=== PATIENT | female | born 1960 | race Asian ===

== ENCOUNTER 2020-05-14 15:03 | Outpatient (REF) | payer MEDICAID, SELFPAY ==
[2020-05-14 19:54] LABS: HCT 40.1 % (36.0-46.0); HGB 13.2 g/dL (11.2-15.7); MCH 29.3 pg (27.0-33.0); MCHC 32.9 % (32.0-36.0); MCV 88.9 fL (80-95); MPV 10.8 fL (8.0-11.0); Platelet Count 324 10^3/uL (130-400); RBC 4.51 10^6/uL (3.93-5.22); RDW 12.5 % (11.7-14.6); RDW-SD 40.9 fL; WBC 7.01 10^3/uL (4.4-10.8)
[2020-05-14 20:13] LABS: ALT 40 U/L (14-59); AST 27 U/L (15-37); Alkaline Phosphatase 75 U/L (46-116); Anion Gap 6.7 mmol/L (3-11); BUN 18 mg/dL (7-18); Bilirubin, Total 0.3 mg/dL (0.2-1.0); CO2 28.3 mmol/L (21.0-32.0); CREATININE 0.62 mg/dL (0.55-1.02); Calcium 9.1 mg/dL (8.5-10.1); Calculated LDL 116 mg/dL (<100); Chloride 107 mmol/L (98-107); Cholesterol 238 mg/dL (<200); Glucose 151 mg/dL (74-106); HDL Cholesterol 76 mg/dL (40-60); Potassium 4.3 mmol/L (3.5-5.1); Sodium 142 mmol/L (136-145); TSH (W/Ref FT4) 2.27 uIU/mL (0.36-3.74); Total Protein 7.4 g/dL (6.4-8.2); Triglyceride 230 mg/dL (<150)
[2020-05-14 20:28] LABS: Vitamin D 25 Total 32.7 ng/ml (30-100)
== END 2020-05-14 15:23 ==
LOC: NCHCN 15:03
PROVIDERS: PCP Nurse Practitioner Family; Visit Provider Nurse Practitioner
DX: R14.0 Abdominal distension (gaseous) (principal); Z13.220 Encounter for screening for lipoid disorders; Z13.21 Encounter for screening for nutritional disorder
CPT/HCPCS: 80053; 80061; 82306; 85027; 84443

== ENCOUNTER 2020-05-31 00:58 | Outpatient (CLI) | payer MEDICAID, SELFPAY ==
--- NOTE | 2020-05-31 13:08 | DI.MAMMO_ITS ---
EXAM: MG MAMMO SCREENING CLINICAL HISTORY: SCREENING,Z12.39 TECHNIQUE: Mammograms were interpreted according to the usual protocol including computer analysis w [employer] CAD system, tomosynthesis and C-view imaging. COMPARISON: FINDINGS: The breasts are of moderate density with fairly symmetrical distribution of fibroglandular tissue. N o dominant mass or clumped microcalcification is identified in either breast. The current examinatio n is compared with prior study of October 2013 and there has been no gross interval change appearanc e comparison with previous films. IMPRESSION: No specific evidence of malignancy at this time. Routine screening examinations are suggested at yea rly intervals in this age group according to the ACS ACR guidelines. BI-RADS Cat 1 - Negative Breast Density - Category B - Scattered areas of fibroglandular density
== END 2020-05-31 01:18 ==
PROVIDERS: PCP Nurse Practitioner Family; Visit Provider Nurse Practitioner
DX: Z12.31 Encounter for screening mammogram for malignant neoplasm of breast (principal)
CPT/HCPCS: 77063; 77067

== ENCOUNTER 2020-06-04 14:15 | Outpatient (REF) | payer MEDICAID, SELFPAY ==
--- NOTE | 2020-06-04 13:30 | PAPFT_PTH ---
PATIENT: Nena Ingram LOC: [facility]#:[id number] AGE/SX: 60/F ROOM: RE06/04/[address]: Flakita Rubio : 1960 BED: DIS: 06/04/2020 SPEC #: [id number] RECD: 06/04/20 18:34 STATUS: DEV REQ #: [id number] JUN: 06/04/20 13:[address]: Flakita Rubio DEPT: [facility] Cytology RECD BY: Theresa Green ENTERED: 06/04/20 18:34 SP TYPE: PAPFT OTHR DR: Arlen Ball Tissues: 1 - CX/ENDOCX FOR PAP SMEARS Procedures: PAP THIN PREP/UVM Screening HPV DNA PROBE Comments: [id number]
== END 2020-06-04 14:35 ==
LOC: NCHCN 14:15
PROVIDERS: PCP Nurse Practitioner Family; Visit Provider Nurse Practitioner
DX: Z12.4 Encounter for screening for malignant neoplasm of cervix (principal); Z11.51 Encounter for screening for human papillomavirus (HPV)
CPT/HCPCS: 88142; 87624

== ENCOUNTER 2021-01-11 01:35 | Outpatient (CLI) | payer MEDICAID, SELFPAY ==
[2021-01-11 10:09] LABS: Source Nasal/Nares
[2021-01-11 13:30] LABS: COVID-19 PCR Negative (Negative)
== END 2021-01-11 01:36 | disposition home or self-care (01) ==
LOC: LBO 01:35
PROVIDERS: PCP Nurse Practitioner Family; Visit Provider Surgery
DX: Z20.822 Contact with and (suspected) exposure to COVID-19 (principal); Z01.818 Encounter for other preprocedural examination
CPT/HCPCS: 87635

== ENCOUNTER 2021-01-14 07:46 | Day surgery (SDC) | payer MEDICAID, SELFPAY ==
--- NOTE | 2021-01-14 06:46 | ENDO_ITS ---
Date of service: 01/14/21 Time of Service: 09:06 Endoscopy Report DATE OF PROCEDURE: 01/14/21 PRE-OP DIAGNOSIS: colon cancer screening, bloating POST-OP DIAGNOSIS: other (gastritis, normal colon) PROCEDURE: 1. EGD with biopsies 2. Colonoscopy SURGEON: Evie Gomez ANESTHESIA TYPE: General:No Airway (ASA 2/Janene Alexander, ANN) ESTIMATED BLOOD LOSS: 3 PATHOLOGY: other (Duodenal, gastric and GE junction bx) COMPLICATIONS: None DISPOSITION: same day INDICATIONS: The patient is here for Colonoscopy pre-op. She has no family history of colon cancer. She has bowel habit changes that include abdominal distention, bloating, increased flatus, diarrhea and fecal urgency. -Discussed colonoscopy bowel prep as well as the procedure. Discussed EGD procedure. Discussed possible complications of the procedure to include bleeding , pain, perforation, missed small lesion/polyp, sore throat, aspiration and adverse reaction to the medications. Questions were answered to patient?s satisfaction. No guarantees were implied or given. PREP: Miralax/Dulcolax PROCEDURE START TIME: :06 PROCEDURE END TIME: :39 COLONOSCOPY RETRACTION TIME: 15 minutes FINDINGS: moderate gastritis with shallow ulcers with clots PROCEDURE DESCRIPTION: After informed consent was obtained the patient was take to the procedure room and placed in a supine position. Monitors were applied and a time out was done. The patients name, date of , procedure t ype, allergies to medications and metal in their body was reviewed. A bite block was placed and the patient was sedated. Once sedated and comfortable the gastroscope was advanced through the orop harynx which was grossly normal into the esophagus. The proximal and mid- esophagus were normal. There was normal peristalsis noted. In the distal esophagus there was mild inflammation noted. The scope was advanced into the stomach and through the pylorus into the 3rd portion of the duodenum. The duodenum was noted to be normal. Biopsies were done to rule out celiac. The scope was retracted back into the stomach. There was moderate inflammation noted in the antrum. Biopsies were done to rule out H. pylori. There were a few shallow ulcers noted in the antrum. The scope was retro-flexed. The cardia and fundus were noted to be normal. There was no hiatal hernia noted. The scope was retracted back into the esophagus and biopsies were done of the GE junction to rule out Winter's. The Z line was regular. The GE junction was at 35 cm. While the patient was still sedated they were placed in a left decubitous position. A rectal exam was done. External exam was normal. Internal exam revealed a normal sphincter tone and no palpable masses. The scope was then introduced and retro-flexed. Grade 1 internal hemorrhoids were identified. No masses or polyps were identified on retroflexion. The scope was then advanced to the cecum without difficulty. The ileocecal valve and appendiceal orifice were identified. The prep was good. The scope was then slowly retracted over 15 minutes back into the rectum. There were no polyps. There was no diverticulosis noted. The scope was removed and the patient was woken up and taken back to Same day surgery in stable condition. The patient tolerated the procedure well and there were no immediate complications. Follow up: 10 years for her next colonoscopy. Start on Pepcid 40 mg BID
--- NOTE | 2021-01-14 06:48 | W.PM.DSUDISC ---
Discharge Plan Disposition Patient Disposition: HOME Condition: Good Discharge Details Reason For Visit: colonoscopy/egd Attending Provider: Evie Gomez Primary Care Provider: Arlen Ball Home Meds and New Rx's Prescriptions: New famotidine [Pepcid] 40 mg tablet 40 mg PO BID Qty: 60 RF: 0 Continued omega-3 fatty acids [Fish Oil Concentrate] 1,000 mg capsule 1,000 mg PO DAILY RF: 0 cholecalciferol (vitamin D3) 50 mcg (2,000 unit) capsule 50 mcg PO DAILY RF: 0 vitamin B complex [B Complex-Vitamin B12] Tablet 1 tab PO DAILY RF: 0 ibuprofen 200 mg capsule 200 mg PO Q6H PRNRF: 0 Discontinued bisacodyl [Dulcolax (bisacodyl)] 5 mg tablet,delayed release (DR/EC) 5 mg PO ONCE Qty: 4 RF: 0 polyethylene glycol 3350 17 gram/dose powder 238 g PO ONCE Qty: 238 RF: 0 Discharge Instructions Instructions: Gastritis (DC), Hemorrhoids (DC), Diet for Stomach Ulcers and Gastritis (ED) Additional Instructions: Findings: inflammation of the stomach with ulcers Small internal hemorrhoids Follow up: 10 years for colonoscopy Please call if you develop: fevers >101.5 Nausea or Vomiting Abdominal pain that is not transient DAY SURGERY UNIT POST ENDOSCOPY INSTRUCTIONS 1. Because there will be medication in your system for the next 24 hours, you may feel a little sleepy. Your coordination will be affected. Therefore: a. Do not drive or operate dangerous equipment for 24 hours. b. Do not drink alcohol beverages for 24 hours (not even beer). c. Plan to go home and rest for the day. 2. Generally there are no restrictions on your activity after a day or so has gone by, but you may feel a bit fatigued for a few days. 3 After you arrive home you may have a light meal and return to a normal diet as you can tolerate it without feeling sick to your stomach. 4. After surgery, you may feel pain or discomfort. This should be only transient, but if it persists please contact your doctor. 5. If there are any questions regarding the findings of your procedure, please feel free to contact your doctor. 6. If you are unable to contact your doctor with a problem, contact the hospital at [phone]. 7. Continue all your regular medications unless directed otherwise. I understand the above instructions and have no questions. Signature of Patient or Responsible Adult Escort Date/Time Name of Responsible Adult Escort Signature of Nurse Date/Time Activity:: Activity as Tolerated Diet:: As Tolerated Discharge Orders Discharge Orders: Discharge Order (Routine); Ordered 01/14/21 Ordered By: Evie Gomez
--- NOTE | 2021-01-14 07:24 | W.ANESPRE ---
Anesthesia Assessment and Plan Anesthesia History Personal History: No History of Anesthesia Complications Family History: No Family History of Anesthesia Complications Exercise Tolerance Exercise Tolerance: Metabolic Equivalents>4 Cardiac & Pulmonary Exam Cardiac Exam: Normal S1/S2 Heart Sounds Pulmonary Exam: Clear Bilateral Breath Sounds Airway Exam Known Difficult Airway: No Mallampati Class: 3 Mouth Opening: Normal (> 3cm) Thyromental Distance: Greater than 3 cm Neck Range of Motion: Full ROM Neck Circumference: Normal Teeth Condition: Normal Dentition and Removable Dentures/Plates Upper ASA Classification ASA Score: ASA 2 ASA Emergency: No NPO Status NPO Status: NPO Clears >2 hours, Solids >8 hours Status Status: Not Per Patient Anesthesia Plan Anesthesia Technique: General Anesthesia Airway Planned: Natural Airway Monitors Used: Standard Monitors Additional Preop Comments:: 60 yo for EGD/COLO for increased abd pain/discomfort and bloating. Has a history of tubular adenoma in 2013. General Info Date of Service This is a Shared Provider Document. All providers who document on this will be required to sign document once completed. Please Communicate with Team Date Performed: 01/14/21 Height: 4 ft 11 in Weight: 52.73 kg Body Mass Index (BMI): 23.4 Surgical Procedure: Operation Date: 01/14/21 09:35 Proposed Procedures Side Surgeon p Colonoscopy/Gastroscopy Evie Gomez MD Vital Signs and Lab Results Vital Signs Most Recent Vital Signs in EMR: see EMR for VS Point of Care Results Nursing Point of Care Results: No Data to Display Lab Results Blood Type / Crossmatch: No Data to Display Complete Blood Count: White Blood Count 7.01 10^3/uL (4.4-10.8) 05/14/20 14:07 05/14/20 Red Blood Count 4.51 10^6/uL (3.93-5.22) 05/14/20 14:07 05/14/20 Hemoglobin 13.2 g/dL (11.2-15.7) 05/14/20 14:07 05/14/20 Hematocrit 40.1 % (36.0-46.0) 05/14/20 14:07 05/14/20 Platelet Count 324 10^3/uL (130-400) 05/14/20 14:07 05/14/20 Complete Metabolic Panel: Sodium Level 142 mmol/L (136-145) 05/14/20 14:07 05/14/20 Potassium Level 4.3 mmol/L (3.5-5.1) 05/14/20 14:07 05/14/20 Chloride Level 107 mmol/L (98-107) 05/14/20 14:07 05/14/20 Carbon Dioxide Level 28.3 mmol/L (21.0-32.0) 05/14/20 14:07 05/14/20 Blood Urea Nitrogen 18 mg/dL (7-18) 05/14/20 14:07 05/14/20 Creatinine 0.62 mg/dL (0.55-1.02) 05/14/20 14:07 05/14/20 Calcium Level 9.1 mg/dL (8.5-10.1) 05/14/20 14:07 05/14/20 Albumin 4.0 g/dL (3.4-5.0) 05/14/20 14:07 05/14/20 Glucose Level 151 mg/dL (74-106) H 05/14/20 14:07 05/14/20 Liver Function Panel: Alanine Aminotransferase (ALT/SGPT) 40 U/L (14-59) 05/14/20 14:07 05/14/20 Aspartate Amino Transf (AST/SGOT) 27 U/L (15-37) 05/14/20 14:07 05/14/20 Coagulation Panel: No Data to Display Cardiac Panel: No Data to Display Arterial Blood Gas: No Data to Display Venous Blood Gas: No Data to Display Pancreas Panel: No Data to Display Thyroid Panel: Thyroid Stimulating Hormone (TSH) 2.27 uIU/mL (0.36-3.74) 05/14/20 14:07 05/14/20 Infectious Disease: Coronavirus (COVID-19)(PCR) Negative (Negative) 01/11/21 08:43 01/11/21 Coronavirus 2019 Source Nasal/nares 01/11/21 08:43 01/11/21 Blood Cultures: Blood Culture Toxicology Panel: No Data to Display Panel: No Data to Display PFS Medical History Abdominal bloating Depression Headache Insomnia Melasma Tubular adenoma 2014 Surgical History History of colonoscopy History of esophagogastroduodenoscopy (EGD) Social History Smoking/Tobacco Use Status: Never Smoking risk assessment performed?: Yes Alcohol Intake: never Substance use type: does not use Current gender identity: female Do you feel safe at home: Yes Do you feel safe in your relationship?: Yes Meds Allergies and Home Medications Allergies Allergy/AdvReac Type Severity Reaction Status Date / Time No Known Allergies Allergy Verified 01/14/21 08:05 Home Medication Medication Instructions Recorded ibuprofen 200 mg capsule 200 mg PO Q6H PRN 05/30/20 cholecalciferol (vitamin D3) 50 50 mcg PO DAILY 12/27/20 mcg (2,000 unit) capsule omega-3 fatty acids 1,000 mg 1,000 mg PO DAILY 12/27/20 capsule vitamin B complex 1 tab PO DAILY 12/27/20 famotidine [Pepcid] 40 mg PO BID #60 tab 01/14/21
[2021-01-14 08:00] VITALS: BP 146/85; PULSE 73; RESP 18; TEMP 36.6; O2SAT 99
[2021-01-14] MEDS: Lactated Ringers 1,000 ML 80 ML IV (08:20)
--- NOTE | 2021-01-14 09:08 | BOWEL_PTH ---
PATIENT: Nena Ingram LOC: [facility] U#:[id number] AGE/SX: 60/F ROOM: RE01/14/[address]: Evie Gomez MD : 1960 BED: DIS: 01/14/2021 SPEC #: [id number] RECD: 01/14/21 12:41 STATUS: DEV REAamir #: [id number] JUN: 01/14/21 09:[address]: Evie Gomez DEPT: Surgical Specimen RECD BY: Theresa Green ENTERED: 01/14/21 12:42 SP TYPE: Bowel OTHR DR: Arlen Ball Tissues: 1 - BIOPSY BOWEL 2 - STOMACH BIOPSY 3 - ESOPHAGUS BIOPSY Procedures: GROSS AND MICRO LEVEL 4 IMMUNOPEROXIDASE STAIN Comments: [id number]
[2021-01-14 09:45] VITALS: BP 115/73; PULSE 74; RESP 16; TEMP 36.1; O2SAT 100
--- NOTE | 2021-01-14 09:46 | W.ANESPOSTOP ---
Postoperative Evaluation Date, Time and Location Date Performed: 01/14/21 Time Performed: 09:47 Patient Location: Day Surgery Unit Vital Signs Most Recent Imported Vital Signs: Most Recent Vital Signs Temp Pulse Resp BP Pulse Ox 36.6 C 73 18 146/85 H 99 01/14/21 08:00 01/14/21 08:00 01/14/21 08:00 01/14/21 08:00 01/14/21 08:00 Most Recent Manually Entered Vital Signs: Adult Blood Pressure: 115/73 Heart Rate: 74 Respirations: 16 Oxygen Saturation (%): 99 Temperature (C): 36.1 C Pain Score (0-10 Scale): 0 Assessment Mental Status: Arousable with meaningful communication Airway and Respiratory Function: Patent airway with normal (patient baseline) respiratory exam Cardiovascular Function: Hemodynamically Stable Hydration Status: Adequately Hydrated Nausea & Vomiting: No Nausea or Vomiting Pain: Pt. Denies Any Pain Peripheral Nerve Block: Patient did not receive a nerve block
[2021-01-14 09:48] VITALS: BP 115/73; PULSE 74; RESP 16; TEMPC 36.1; O2SAT 99
[2021-01-14 10:10] VITALS: BP 141/83; PULSE 71; RESP 16; TEMP 36; O2SAT 99
[2021-01-14 14:37] VITALS: BMI 23.4
== END 2021-01-14 10:48 | disposition home or self-care (01) ==
LOC: SUR 07:47
PROVIDERS: PCP Nurse Practitioner Family; Visit Provider Surgery
PROC: (CPT 43239; principal; 2021-01-14 09:30)
DX: Z12.11 Encounter for screening for malignant neoplasm of colon (principal); R14.0 Abdominal distension (gaseous); K29.60 Other gastritis without bleeding; K25.9 Gastric ulcer, unspecified as acute or chronic, without hemorrhage or perforation; K64.0 First degree hemorrhoids
CPT/HCPCS: 43239; 45378; 88305; 88361; J2001

== ENCOUNTER 2021-02-18 12:42 | Emergency (ER) | payer MEDICAID, SELFPAY ==
--- NOTE | 2021-02-18 12:56 | ED.GENADUL_ITS ---
Discharge Plan Disposition Patient Disposition: HOME Condition: Good Discharge Details Clinical Impression: Injury of knee, Lax MCL, Injury of groin Primary Care Provider: Arlen Ball ED Provider: Leilani King Home Meds and New Rx's Prescriptions: Continued omega-3 fatty acids [Fish Oil Concentrate] 1,000 mg capsule 1,000 mg PO DAILY RF: 0 cholecalciferol (vitamin D3) 50 mcg (2,000 unit) capsule 50 mcg PO DAILY RF: 0 vitamin B complex [B Complex-Vitamin B12] Tablet 1 tab PO DAILY RF: 0 ibuprofen 200 mg capsule 200 mg PO Q6H PRNRF: 0 famotidine [Pepcid] 40 mg tablet 40 mg PO BID Qty: 60 RF: 0 Discharge Instructions Instructions: Swollen Knee Joint (ED) Additional Instructions: Imaging is reassuring, there is no fracture noted. However, your exam is concerning for injury to the ligament on the inside of your knee (MCL). Encourage rest, ice, elevation. Tylenol and ibuprofen for discomfort. Please continue with the brace until cleared by orthopedics. You may continue with crutches to help with ambulation and discomfort. Please call orthopedics tomorrow to schedule follow-up appointment. Stand Alone Forms: Work Release Referrals: Arlen Ball [Primary Care Provider] - Willie Melton MD [ [facility] STAFF PHYSICIAN] - Discharge Data Discharge Date/Time-TO BE ENTERED AT DEPARTURE: 02/18/21 15:32 Medical Decision Making Patient is a pleasant 60-year-old female presenting today with chief complaint of left lower extremity pain. Reports that 2 days ago she was playing with her dog when her leg got caught in the leash. Suffered a rotational and abduction injury to the knee and hip. Suffered abrasion to posterior of the left ankle. Pain is primarily in the knee medial aspect of her groin. Denies other injury the time of the incident. Did not strike her head, no loss of consciousness. Denies any neck or back pain. Patient reports that she has remained nonweightbearing and is using crutches to help with mobility. On exam, patient appears nontoxic. She does appear uncomfortable, particularly with movement of the left lower extremity. She has 2+ distal pulses. Sensation is intact. She has a well-healing abrasion on the posterior aspect of the left ankle. Achilles is intact. Normal Early test. Calf is soft and nontender. No pain over the proximal fibula. No pain with palpation about the foot. Patient does have some swelling over the medial aspect of the knee, this is more consistent with soft tissue swelling. Not appreciate a large effusion. She is ligamentously intact with anterior posterior drawer testing. MCL is lax and has pain with testing. No pain with palpation or stressing of the LCL. Pain with palpation of the medial aspect of the joint. No evidence of dislocation at this time. Patient also indicating pain in the groin. Has not appreciate any defect. No ecchymosis. She is full range of motion of the hip. Concern primarily at this time for MCL injury. However, based on his injury I do feel that imaging for potential fracture would be appropriate. Patient declines any analgesics. FINDINGS: Bones/joints: Normal. Soft tissues: Normal. IMPRESSION: No acute findings. FINDINGS: Bones/joints: Unremarkable. No acute fracture. Soft tissues: Unremarkable. IMPRESSION: No acute findings. I discussed these findings with the patient. I encouraged rest, ice, elevation. Tylenol and ibuprofen as needed for discomfort. Patient will be placed in a hinged knee brace. She will continue continue with crutches to help with di scomfort. Return precautions were discussed. Encourage that she contact orthopedics tomorrow to schedule follow-up appointment, referral was sent. Return precautions were discussed. All the questions and concerns were addressed and she is in agreement this plan. HPI General Mode of arrival: wheelchair . Date/Time Provider Initiated Documentation: 02/18/21 12:56 . Limitations to Documentation: no limitations . Information obtained by: patient and RN notes reviewed . History of Present Illness 60 year old F presents to the emergency department with the chief complaint of LLE pain, described as moderate, with intensity rated at 6. Quality is described as aching, and is localized to the left and lower extremity. Patient reports no radiation. Patient started experiencing this day(s) (2) and it has been constant. Immobilization improves symptom(s), Movement worsens symptoms . Patient notes no other symptoms.. Patient did receive the following treatments prior to arrival, NSAID Related Data Home Medications Medication Instructions Recorded Confirmed ibuprofen 200 mg capsule 200 mg PO Q6H PRN 05/30/20 02/18/21 cholecalciferol (vitamin D3) 50 50 mcg PO DAILY 12/27/20 02/18/21 mcg (2,000 unit) capsule omega-3 fatty acids 1,000 mg 1,000 mg PO DAILY 12/27/20 02/18/21 capsule vitamin B complex 1 tab PO DAILY 12/27/20 02/18/21 famotidine [Pepcid] 40 mg PO BID #60 tab 01/14/21 02/18/21 Previous Rx's Medication Instructions Recorded famotidine [Pepcid] 40 mg PO BID #60 tab 01/14/21 Allergies Allergy/AdvReac Type Severity Reaction Status Date / Time No Known Allergies Allergy Verified 02/18/21 13:12 Review of Systems Constitutional Constitutional: Reports as per HPI, Denies chills, Denies fever(s), Denies headache(s) and Denies weakness ENT Ears, Nose, Mouth, and Throat: Denies headache(s) Cardiovascular Cardiovascular: Reports as per HPI Respiratory Respiratory: Reports as per HPI and Denies cough Musculoskeletal Musculoskeletal: Reports as per HPI and Denies tingling Integumentary/Breasts Skin/Breast: Reports as per HPI, Denies rash and Reports wounds Neurologic Neurologic: Reports as per HPI, Denies headache(s), Denies tingling, Denies paresthesias and Denies weakness [facility] Medical History (Updated 02/18/21 @ 15:16 by RYAN Degroot) Abdominal bloating Depression Headache Insomnia Melasma Tubular adenoma 2013 Surgical History (Updated 01/31/21 @ 15:48 by Nini Ferguson) History of colonoscopy (~12/2020) History of esophagogastroduodenoscopy (EGD) (~12/2020) Social History Smoking/Tobacco Use Status: Never Smoking risk assessment performed?: Yes Alcohol Intake: never Substance use type: does not use Current gender identity: female Do you feel safe at home: Yes Do you feel safe in your relationship?: Yes Exam Const General: cooperative, healthy appearing, comfortable, no acute distress, well developed and well groomed Nutritional Appearance: average body habitus and well nourished Orientation: alert and awake Resp Effort & Inspection: normal respiratory effort, able to speak in complete sentences and no respiratory distress Cardio Rate: regular rate Rhythm: regular rhythm Skin Wounds: wounds noted (superficial abraion posterior and atnerior ankle, no erythema or warmth) Neuro General: patient alert and patient awake Cognition: normal cognition Speech: speech normal Gait: antalgic Motor: muscle tone normal throughout Sensory Exam: no sensory deficits noted Extrem Left lower extremity: normal to inspection, normal capillary refill, hip/thigh Details: normal to inspection, tenderness Location: of the proximal upper leg Location: medially and normal ROM; no swelling, no abrasions, no lacerations, no ecchymosis, no crepitus, no deformity and no unusual warmth, knee Details: normal to inspection, tenderness Location: of the medial joint line, swelling (medial soft tissue), normal ROM, knee ligament exam normal Details: anterior drawer test normal, posterior drawer test normal and varus stress test normal; pain with axial loading and knee ligament exam abnormal Details: valgus stress test Details: laxity noted, lower leg Details: normal to inspection and no edema; no tenderness, no localized swelling, no ecchymosis, no deformity and no unusual warmth, ankle Details: normal to inspection and normal ROM (full extension of ankle/toe against resistance); achilles tendon exam normal and foot Details: vascular exam Details: dorsalis pedis pulse present and motor-sensory exam Details: light-touch normal Psych Appearance: grossly normal and well kempt Mental Status: mental status grossly normal Speech and Movement: speech and movement normal
[2021-02-18 13:07] VITALS: BP 112/98; PULSE 75; RESP 16; TEMP 36.7; O2SAT 98
--- NOTE | 2021-02-18 13:30 | DI.RAD_ITS ---
Exam(s) XR HIP LT COMPLETE AP PELVIS EXAM: XR HIP LT COMPLETE AP PELVIS CLINICAL HISTORY: medial/inferior pain aftr fall. TECHNIQUE: 2D digital imaging was performed. COMPARISON: No exams were available for comparison FINDINGS: BONES: No acute fracture is present. No bony destructive lesion is seen. JOINTS: No dislocation present. SOFT TISSUE: Normal. IMPRESSION: Unremarkable radiographs of the left hip. Unremarkable radiographs of the pelvis DATA REPOSITORY: RADIATION DOSE DELIVERED:
--- NOTE | 2021-02-18 13:30 | DI.RAD_ITS ---
Exam(s) XR KNEE LT 4V AP,LAT,CARLOS,PAT EXAM: XR KNEE LT 4V AP,LAT,CARLOS,PAT CLINICAL HISTORY: . TECHNIQUE: 2D digital imaging was performed. COMPARISON: No exams were available for comparison FINDINGS: BONES: No acute fracture is present. No bony destructive lesion is seen. JOINTS: The knee is normally aligned. No joint effusion is seen. SOFT TISSUE: Normal. IMPRESSION: Normal radiographs of the left knee. DATA REPOSITORY: RADIATION DOSE DELIVERED:
--- NOTE | 2021-02-18 14:52 | DI.VRAD_ITS ---
PROCEDURE INFORMATION: Exam: XR Left Knee Exam date and time: 02/18/2021 2:16 PM Age: 60 years old Clinical indication: Other: Medial pain after fall TECHNIQUE: Imaging protocol: XR Left knee. Views: 4 or more views. COMPARISON: No relevant prior studies available. FINDINGS: Bones/joints: Normal. Soft tissues: Normal. IMPRESSION: No acute findings. Dictated and Authenticated by: Stiven Fitzgerald MD. Ordering:ABIMAEL Duke MD
--- NOTE | 2021-02-18 14:52 | DI.VRAD_ITS ---
PROCEDURE INFORMATION: Exam: XR Left Hip Exam date and time: 02/18/2021 1:36 PM Age: 60 years old Clinical indication: Other: Medial/inferior pain aftr fall TECHNIQUE: Imaging protocol: XR Left hip. Views: 2 or 3 views hip with pelvis when performed. COMPARISON: No relevant prior studies available. FINDINGS: Bones/joints: Unremarkable. No acute fracture. Soft tissues: Unremarkable. IMPRESSION: No acute findings. Dictated and Authenticated by: Stiven Fitzgerald MD. Ordering:ABIMAEL Duke MD
== END 2021-02-18 15:32 | disposition home or self-care (01) ==
PROVIDERS: Emergency Provider Physician Assistant; PCP Nurse Practitioner Family
DX: M23.8X2 Other internal derangements of left knee (principal); S39.81XA Other specified injuries of abdomen, initial encounter; W18.39XA Other fall on same level, initial encounter
CPT/HCPCS: 99284; 73502; 73564; 99283

== ENCOUNTER → 2022-02-06 01:49 | Outpatient (CLI) | payer MEDICAID, SELFPAY | PROVIDERS: PCP Nurse Practitioner Family; Visit Provider Nurse Practitioner Family ==

== ENCOUNTER 2022-03-28 11:40 | Outpatient (REF) | payer MEDICAID, SELFPAY ==
[2022-03-28 15:23] LABS: HCT 41.4 % (36.0-46.0); HGB 13.5 g/dL (11.2-15.7); MCH 28.8 pg (27.0-33.0); MCHC 32.6 % (32.0-36.0); MCV 88 fL (80-95); MPV 10.4 fL (8.0-11.0); Platelet Count 305 10^3/uL (130-400); RBC 4.69 10^6/uL (3.93-5.22); RDW 12.5 % (11.7-14.6); RDW-SD 40.5 fL
[2022-03-28 15:31] LABS: Anion Gap 9.8 mmol/L (3-11); BUN 16 mg/dL (7-18); CO2 29.2 mmol/L (21.0-32.0); CREATININE 0.8 mg/dL (0.55-1.02); Calcium 9.2 mg/dL (8.5-10.1); Chloride 102 mmol/L (98-107); Glucose 152 mg/dL (74-106); Potassium 4.1 mmol/L (3.5-5.1); Sodium 141 mmol/L (136-145)
== END 2022-03-28 11:41 | disposition home or self-care (01) ==
LOC: NCHCN 11:40
PROVIDERS: PCP Nurse Practitioner Family; Visit Provider Family Medicine
DX: R73.9 Hyperglycemia, unspecified (principal); I10 Essential (primary) hypertension
CPT/HCPCS: 80048; 85027; 83036

== ENCOUNTER 2022-07-11 19:29 | Outpatient (REF) | payer MEDICAID, SELFPAY ==
[2022-07-11 20:09] LABS: COMMENT (LAB VIEW ONLY) 67.19 mg/dL; Microalb ug/mg Crea 10.7 ug/mg Cr
== END 2022-07-11 19:30 | disposition home or self-care (01) ==
LOC: NCHCN 19:29
PROVIDERS: Visit Provider Family Medicine
DX: E11.9 Type 2 diabetes mellitus without complications (principal); R73.9 Hyperglycemia, unspecified; I10 Essential (primary) hypertension
CPT/HCPCS: 82043; 82570

== ENCOUNTER 2022-10-29 10:55 | Outpatient (REF) | payer MEDICAID, SELFPAY | END 2022-10-29 10:56 | disposition home or self-care (01) | LOC: NCHCN 10:55 | PROVIDERS: Visit Provider Nurse Practitioner Family | DX: N39.0 Urinary tract infection, site not specified (principal) | CPT/HCPCS: 87077; 87086; 87186 ==

== ENCOUNTER 2023-04-03 15:16 | Outpatient (REF) | payer MEDICAID, SELFPAY ==
[2023-04-03 16:01] LABS: ALT 36 U/L (14-59); AST 26 U/L (15-37); Alkaline Phosphatase 88 U/L (46-116); Anion Gap 7.9 mmol/L (3-11); BUN 13 mg/dL (7-18); Bilirubin, Total 0.5 mg/dL (0.2-1.0); CO2 30.1 mmol/L (21.0-32.0); CREATININE 0.7 mg/dL (0.55-1.02); Calcium 9.2 mg/dL (8.5-10.1); Calculated LDL 165 mg/dL (<100); Chloride 103 mmol/L (98-107); Cholesterol 279 mg/dL (<200); Estimated GFR 97.72 (mL/min/1.73m2); Glucose 113 mg/dL (74-106); HDL Cholesterol 89 mg/dL (40-60); Potassium 4.3 mmol/L (3.5-5.1); Sodium 141 mmol/L (136-145); Total Protein 8.1 g/dL (6.4-8.2); Triglyceride 126 mg/dL (<150)
[2023-04-03 16:13] LABS: Hemoglobin A1C 6.4 % (<5.7)
== END 2023-04-03 15:17 | disposition home or self-care (01) ==
LOC: NCHCN 15:16
PROVIDERS: PCP Nurse Practitioner Family; Visit Provider Nurse Practitioner Family
DX: I10 Essential (primary) hypertension (principal); E11.9 Type 2 diabetes mellitus without complications; Z13.220 Encounter for screening for lipoid disorders
CPT/HCPCS: 80053; 80061; 83036

== ENCOUNTER 2023-04-17 00:49 | Outpatient (CLI) | payer MEDICAID, SELFPAY ==
--- NOTE | 2023-04-17 08:58 | DI.MAMMO_ITS ---
Exam(s) MAMMO SCREENING EXAM: MAMMO SCREENING CLINICAL HISTORY: SCREENING, Z12.39 TECHNIQUE: Bilateral full field digital CC and MLO mammographic images were obtained with 3D tomosyn thesis and utilizing computer aided detection (CAD). COMPARISON: Available for comparison. FINDINGS: Masses/Architectural Distortion: None seen. Microcalcifications: No suspicious pleomorphic-type are seen. Skin Thickening/Nipple Retraction: None. IMPRESSION: 1. No significant interval change with no specific features of malignancy noted. 2. Unless there is more urgent need, screening mammography is recommended, as per [employer] guidelines. BI-RADS Category 1 - Negative Breast Density - Category B - Scattered areas of fibroglandular density Breast density category C or D implies that the patient has dense breast tissue. Dense breast tissue is very common and is not abnormal but dense breast tissue can make it harder to find cancer on a ma mmogram. Also, dense breast tissue may increase their breast cancer risk. This information about the result of the mammogram report was provided to the patient to raise their awareness. Use this report when you speak with the patient about their risks for breast cancer, which includes their family hist ory. At that time, you may recommend for more screening tests (Ultrasound or MRI) as they might be us eful based on their risk. A negative radiographic report should not delay biopsy if a dominant or clinically suspicious mass is present. Up to ten percent of cancers are not identified on mammography. A negative report may reinforce clinical impression. Adenosis and dense breasts may obscure an underlying neoplasm. False positive reports average 6 to 10%. Patient will receive a letter notifying them of these results.
== END 2023-04-17 01:09 ==
LOC: DI 00:50
PROVIDERS: PCP Nurse Practitioner Family; Visit Provider Nurse Practitioner Family
DX: Z12.31 Encounter for screening mammogram for malignant neoplasm of breast (principal)
CPT/HCPCS: 77063; 77067

== ENCOUNTER 2024-04-12 15:38 | Outpatient (REF) | payer MEDICAID, SELFPAY ==
--- OUTSIDE RECORDS SUMMARY | 2024-04-12 15:39 | XMS_ITS | Clinical Summary ---
Author Organization [facility] Address [address] [place] [address] Care Team Providers Care Clay House Worker Name Role Phone Arlen Ball MACHINE ADJUSTER HELPER Primary Care Provider [phone] Social History Tobacco Use Types Packs/Day Years Used Date Smoking Tobacco: Never Assessed Interpersonal Safety Answer Date Record ed Physically Hurt Never 08/14/2020 Verbally Threaten Not on file 08/14/2020 Sex and Gender Information Value Date Recorded Sex Assigned at Not on file Gender Identity Not on file Sexual Orientation Not on file Plan of Treatment Health Maintenance Due Date Last Done Comments Hepatitis C Screen 1961 RSV Immunization ( o r 60+ Years) (1 - 1-dose 60+ series) 2021 COVID-19 Vaccine ( season) 2023 Care Teams Clay House Worker Relationship Specialty Start Date End Date Arlen Ball FNP [place] [address] PCP - General 09/21/20
--- OUTSIDE RECORDS SUMMARY | 2024-04-12 15:39 | XMS_ITS | Referral Summary ---
Author Organization [facility] Address [address] [place] [address] Care Team Providers Care Leather Toggler Name Role Phone Arlen Ball REHAN Primary Care Provider [phone] Social History Tobacco Use Types Packs/Day Years Used Date Smoking Tobacco: Never Assessed Interpersonal Safety Answer Date Record ed Physically Hurt Never 08/14/2020 Verbally Threaten Not on file 08/14/2020 Sex and Gender Information Value Date Recorded Sex Assigned at Not on file Gender Identity Not on file Sexual Orientation Not on file Plan of Treatment Not on file Care Teams Leather Toggler Relationship Specialty Start Date End [place] [address] PCP - General 09/21/20
--- OUTSIDE RECORDS SUMMARY | 2024-04-12 15:40 | XMS_ITS | Encounter Summary ---
Author Organization [facility] Address [address] [facility], [address] [place] [address] Care Team Providers Care De Ionizer Operator Name Role Phone Clarissa Salmeron MD Primary Care Provider + Encounter Details Date Type Department Care Team (Late st Contact Info) Description 07/07/2018 Telephone [facility] [address] [facility], [address] [place], [place] [phone] Clarissa Salmeron MD [address] [facility], [address] [place], [place] [phone] Social History Tobacco Use Types Packs/Day Years Used Date Smoking Tobacco: Never Smokeless Tobacco: Never Sex and Gender Information Value Date Recorded Sex Assigned at Not on file Gender Identity Not on file Sexual Orientation Not on file documented as of this encounter Miscellaneous Notes * Telephone Encounter - Clarissa Salmeron MD - 07/15/2018 9:35 AM EDT Ok, noted. * Telephone Encounter - Pamela Barrera MA - 07/15/2018 8:22 AM EDT Called les to give her the time and date of the appointment. Les said that she would liketo hold off on doing this right now because she is unsure if she would have insurance at this point. * Telephone Encounter - Pamela Barrera MA - 07/14/2018 4:37 PM EDT Called pt, could not leave a message because her mailbox is full. * Telephone Encounter - Pamela Barrera MA - 07/13/2018 9:25 AM EDT Called pt, unable ot leave VM because her mailbox is full. * Telephone Encounter - Pamela Barrera MA - 07/09/2018 8:30 AM EDT Stress Echo Booked for 07/16/18 @ 7:30 AM. Called pt unable to leave VM, mailbox is full. * Telephone Encounter - Pamela Barrera MA - 07/08/2018 3:56 PM EDT Received approval for [id number] EX 09/06/18 * Telephone Encounter - Pamela Barrera MA - 07/07/2018 9:26 AM EDT Ekg and note faxed to [employer]. * Telephone Encounter - Clarissa Salmeron MD - 07/07/2018 8:24 AM EDT Please. Also, please send las EKG. Thank you. * Telephone Encounter - Pamela Barrera MA - 07/07/2018 8:15 AM EDT Stress test with echo PA needs additional information sent to [facility]. Should I send you note? documented in this encounter Plan of Treatment Not on file documented as of this encounter Visit Diagnoses Not on filedocumented in this encounter Care Teams De Ionizer Operator Relationship Specialty Start Date End Date Clarissa Salmeron MD [address] [facility], [address] [place] [address] PCP - General Internal Medicine 01/06/17 04/13/19 documented as of this encounter
--- OUTSIDE RECORDS SUMMARY | 2024-04-12 15:40 | XMS_ITS | Encounter Summary ---
Author Organization [facility] Address [address] [facility] e[address] [facility], [address] [place] [address] Care Team Providers Care Vocational Nurse Name Role Phone Clarissa Salmeron MD Primary Care Provider + Reason for Visit * Reason Comments UTI Encounter Details Date Type Department Care Team (Late st Contact Info) Description 04/01/2018 4:15 PM EDT Office Visit [facility] [address] [facility], [address] [place] [address] Fany Espinoza NP [address] [facility], [address] [place] [address] Yumi Bernardo MD [address] [facility], [address] [place], [place] [id number] Acute recurrent cystitis Social History Tobacco Use Types Packs/Day Years Used Date Smoking Tobacco: Never Sex and Gender Information Value Date Recorded Sex Assigned at Not on file Gender Identity Not on file Sexual Orientation Not on file documented as of this encounter Last Filed Vital Signs Vital Sign Reading Time Taken Comments Blood Pressure 122/80 04/01/2018 4:20 PM EDT Pulse 67 04/01/2018 4:20 PM EDT Temperature 36.7 ??C (98 ??F) 04/01/2018 4:20 PM EDT Respiratory Rate - - Oxygen Saturation 99% 04/01/2018 4:20 PM EDT Inhaled Oxygen Concentration - - Weight 50.3 kg (111 lb) 04/01/2018 4:20 PM EDT Height 152.4 cm (5') 04/01/2018 4:20 PM EDT Body Mass Index 21.68 04/01/2018 4:20 PM EDT documented in this encounter Progress Notes * Yumi Bernardo MD - 04/01/2018 4:15 PM EDT OUTPATIENT VISIT: Nena Ingram 04/01/2018 No Known Allergies CC: UTI HPI: Ms. Ingram is a 58 year lady with PMH significant for recent dental instrumentation for dental abscess on Amoxicillin, past E. Coli UTIs presenting with UTI symptoms for past 4 days. Patient states she has burning and pain with urination, had noticed blood in the urine that has decreased, and pressure with increased urgency. She denies incontinence, any new sexual activity or partners. She has not used new detergent or feminine hygiene products. She is not sure why she has a UTI but that it feels similar to her previous infections. She denies fever, chills, some nausea but has a normal appetite and has been eating well. She endorses she has not been taking her Amoxicillin prescribed by the dentist as prescribed and has been missing pills. We discussed the importance of taking this course of ABX on time and as prescribed. Problem List & PMHx: Patient Active Problem List Diagnosis ??? History of gestational diabetes ??? History of hypertension ??? Urinary tract infection without hematuria Past Medical History: Diagnosis Date ??? H/O colonoscopy 05/30/2014, Dr. Hoover, 2 polyps (TAs), f/u 5 years ??? Psoriasis Current Medications: Current Outpatient Prescriptions Medication Sig Dispense Refill ??? b complex vitamins tablet Take 1 tablet by mouth daily. Vitamin B-complex , Sig: as directed once a day ??? biotin 1 mg tablet Take 1,000 mcg by mouth daily. biotin 1000 mcg tablet, Si tab(s) orally once a day ??? calcium carbonate-vitamin D3 (OYSTER SHELL CALCIUM-VIT D3) 500 mg(1,250mg) - 200 unit per tabletTake 1 tablet by mouth 2 (two) times a day with meals. 60 tablet 11 ??? cholecalciferol, vitamin D3, (cholecalciferol) 400 unit tablet Take 400 Units by mouth daily. Vitamin D3 400 intl units tablet, Si tab(s) orally once a day ??? ibuprofen (ADVIL,MOTRIN) 600 mg tablet Take 600 mg by mouth every 8 (eight) hours as needed formoderate pain (4-6). ??? MAGNESIUM CHLORIDE ORAL Take by mouth. ??? omega-3 fatty acids-fish oil (FISH OIL) 300-1,000 mg capsule Take 2 g by mouth daily. Fish Oil 1000 mg capsule, Si cap(s) orally once a day ??? UNABLE TO FIND Physical Therapy , Sig: Left arm numbness evaluate and treat. Start Date: 10/10/2016 ??? UNABLE TO FIND Med Name: tumeric ??? nitrofurantoin, macrocrystal-monohydrate, (MACROBID) 100 mg capsule Take 1 capsule (100 mg total) by mouth 2 (two) times a day for 10 days. 20 capsule 0 ??? phenazopyridine (PYRIDIUM) 100 mg tablet Take 1 tablet (100 mg total) by mouth 3 (three) times a day as needed for bladder spasms for up to 3 days. 10 tablet 0 No current facility-administered medications for this visit. Recent Hospitalizations: Recent instrumentation for dental abscess Social History: Social History Social History ??? Marital status: Single Spouse name: N/A ??? Number of children: N/A ??? Years of education: N/A Occupational History ??? Not on file. Social History Main Topics ??? Smoking status: Never Smoker ??? Smokeless tobacco: Not on file ??? Alcohol use Not on file ??? Drug use: Not on file ??? Sexual activity: Not on file Other Topics Concern ??? Not on file Social History Narrative . Children: 2 sons. 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 Exercise: Walking right now due to arm injury Country of Origin: [place], moved to [place]. Eats rice, vegetables, chicken, green tea, milk. Family History: No family history on file. Review of Systems: Pertinent positives listed in HPI. Patient denied SOB, chest pain, palpitations, rash, recent fall, syncope, trauma. Vitals: Vitals: 04/01/18 1620 BP: 122/80 Pulse: 67 Temp: 36.7 ??C (98 ??F) SpO2: 99% Physical Exam: Gen: NAD, NCAT, pleasant HEENT: PERRL, MMM, no Cervical LAD Neuro: AAOx3, no gross focal abnormalities, normal gait, strength, coordination Psych: appropriate mood and affect CV: RRR, S1/S2 Pulm: CTAB, no wheezes, crackles or rhonci Abd: Soft, NT, ND Extrem: no rash, bruising, no pitting edema : no CVA tenderness bilaterally, no suprapubic tenderness Assessment: Ms. Ingram is a 58 year old lady here for treatment of urinary tract infection confirmed by officedipstick urinalysis. Plan: #Acute Uncomplicated Cystitis: - Macrobid BID for 5 days - Pyrridium 100mg TID PRN for up to 3 days for symptom relief - hydration - continue ABX as prescribed by Dentist for infection prophylaxis - contact office if symptoms not improved in next 48 hours. - contact office or present to ED if develop concerning symptoms for systemic infection such as vomiting, fever/chills, dizziness, malaise. Dr. Yumi Bernardo PGY-1 Internal Medicine Page: [phone] * Tmamy Justin MD - 04/01/2018 4:15 PM EDT I have reviewed the resident's findings and agree with the plan as outlined. documented in this encounter Miscellaneous Notes * Addendum Note - Julian Medeiros MA - 04/01/2018 5:23 PM EDTAddended by: JULIAN MEDEIROS on: 04/01/2018 05:23 PM Modules accepted: Orders documented in this encounter Plan of Treatment Not on file documented as of this encounter Procedures Procedure Name Priority Date/Time Associated Diagnosis Comments URINE CULTURE Routine 04/01/2018 7:23 PM EDT Acute recurrent cystitis POCT URINALYSIS DIPSTICK Routine 04/01/2018 4:24 PM EDT Acute recurrent cystitis documented in this encounter Results * (ABNORMAL) Urine culture (04/01/2018 7:23 PM EDT) Urine Culture >100,000 cfu/ml Escherichia coli(A) 04/03/2018 1:05 PM EDT [facility] Urine Urine specimen collection, clean catch / Unknown Non-blood Collection / Unknown 04/01/2018 7:23 PM EDT 04/01/2018 7:23 PM EDT Narrative Organism Antibiotic Method Susceptibility Escherichia coli Amoxicillin + Clavulanate 16 ug/ml: Intermediate Escherichia coli Ampicillin >16 ug/ml: Resistant Escherichia coli Ampicillin + Sulbactam >16 ug/ml: Resistant Escherichia coli Cefazolin >16 ug/ml: Resistant Escherichia coli Cefuroxime 8 ug/ml: Susceptible Escherichia coli Ciprofloxacin <=1 ug/ml: Susceptible Escherichia coli Gentamicin <=4 ug/ml: Susceptible Escherichia coli Levofloxacin <=2 ug/ml: Susceptible Escherichia coli Nitrofurantoin <=32 ug/ml: Susceptible Escherichia coli Piperacillin + Tazobactam <=16 ug/ml: Susceptible Escherichia coli Tetracycline <=4 ug/ml: Susceptible Escherichia coli Tobramycin <=4 ug/ml: Susceptible Escherichia coli Trimethoprim >8 ug/ml: Resistant Escherichia coli Trimethoprim + Sulfamethoxazole >2 ug/ml: Resistant Fany Espinoza [employer]ENT [employer]CRA[employer]CH[employer] LAB MICROBIOLOGY - G ENERAL ORDERABLES [facility] [address] [place] [address], * (ABNORMAL) POCT Urinalysis dipstick (04/01/2018 4:24 PM EDT) Color, UA Yellow Clarity, UA Clear Glucose, UA Negative Bilirubin, UA Negative Ketones, UA Negative Spec Grav, UA 1.025 Blood, UA Low Positive pH, UA 6.0 Protein, UA Negative Urobilinogen, UA 0.2 Leukocytes, UA Present Nitrite, UA Present Appearance Clear Urine 04/01/2018 4:24 PM EDT Tammy Justin MD POINT OF CARE TEST O RDERABLES documented in this encounter Visit Diagnoses Diagnosis Acute recurrent cystitis Acute cystitis documented in this encounter Care Teams Vocational Nurse Relationship Specialty Start Date End Date Clarissa Salmeron MD [address] [facility], [address] [place] [address] PCP - General Internal Medicine 01/06/17 04/13/19 documented as of this encounter
--- OUTSIDE RECORDS SUMMARY | 2024-04-12 15:40 | XMS_ITS | Encounter Summary ---
Author Organization [facility] Address [address] [facility] [address] [facility], [address] [place] [address] Care Team Providers Care Medical Driver Name Role Phone Clarissa Salmeron MD Primary Care Provider + Encounter Details Date Type Department Care Team (Late st Contact Info) Description 06/10/2017 Scan Document - View in Chart [facility] [address] [facility], [address] [place], [place] [phone] Clarissa Salmeron MD [address] [facility], [address] [place], [place] [phone] Social History Tobacco Use Types Packs/Day Years Used Date Smoking Tobacco: Never Sex and Gender Information Value Date Recorded Sex Assigned at Not on file Gender Identity Not on file Sexual Orientation Not on file documented as of this encounter Plan of Treatment Not on file documented as of this encounter Visit Diagnoses Not on filedocumented in this encounter Care Teams Medical Driver Relationship Specialty Start Date End Date Clarissa Salmeron MD [address] [facility], [address] [place], [place] [phone] PCP - General Internal Medicine 01/06/17 04/13/19 documented as of this encounter
--- OUTSIDE RECORDS SUMMARY | 2024-04-12 15:40 | XMS_ITS | Encounter Summary ---
Author Organization [facility] Address [address] [facility], [address] [place] [address] Care Team Providers Care Relief Salesperson Name Role Phone Clarissa Salmeron MD Primary Care Provider + Reason for Referral * Diagnostic Imaging (Routine) - Closed Specialty Diagnoses / Procedures Referred By Contac t Referred To Contact Radiology Diagnoses Left arm numbness Left leg numbness Procedures MRI Brain without Contrast MRI Brain with and without Contrast Clarissa Salmeron MD [address] [facility], [address] [place] [address] Referral ID Status Reason Start Date Expiration Date Visits Re quested Visits Authorized [id number] Closed 07/07/2018 09/05/2018 1 1 Encounter Details Date Type Department Care Team ([facility] st Contact Info) Description 07/14/2018 Ancillary Orders [facility] [address] [facility], [address] [place], [place] [phone] Clarissa Salmeron MD [address] [facility], [address] [place], [place] [phone] Left arm numbness; Left leg numbness Social History Tobacco Use Types Packs/Day Years Used Date Smoking Tobacco: Never Smokeless Tobacco: Never Sex and Gender Information Value Date Recorded Sex Assigned at Not on file Gender Identity Not on file Sexual Orientation Not on file documented as of this encounter Plan of Treatment Not on file documented as of this encounter Results * MRI Brain without Contrast (07/14/2018 2:36 PM EDT) Anatomical Region Laterality Modality Head Magnetic Resonan ce 07/14/2018 1:45 PM EDT Impressions 07/14/2018 3:01 PM EDT Nonspecific white matter changes which are likely related to the sequela of small-vessel ischemic injury. Dictated: 07/14/2018 3:01 PM Report ID: [id number] Report signed in external system at 07/14/2018 15:01 Reported By: Poornima Dale M.D. (SYLVESTER) Signed By: Poornima Dale M.D. (SYLVESETR) Narrative 07/14/2018 3:01 PM EDT RESPONSIBLE COOK RESTAURANT: Poornima Dale M.D. EXAMINATION: MRI BRAIN WO CONTRAST CLINICAL INDICATION: Anesthesia of the skin. TECHNIQUE: IR T1 sagittal, FLAIR axial, FSE T2 axial, T1 axial, DWI axial and coronal, SWI axial, without intravenous contrast. COMPARISON: Head CT of 05/03/2015 FINDINGS: The ventricles, sulci and cisterns are age appropriate. ??There is no mass, mass effect or acute intracranial hemorrhage. ??There is no extra-axial fluid collection. ??There is no restricted diffusion to suggest an acute ischemic injury. ??There is no susceptibility to suggest remote hemorrhage. ??There are scattered periventricular and subcortical foci of T2 and FLAIR signal hyperintensity which are nonspecific however, may reflect the sequela of small-vessel ischemic injury. Globes, orbits and bony calvarium are intact. ??Visualized paranasal sinuses are clear. Flow voids of the major intracranial vessels are intact. Procedure Note Poornima Dale MD - 07/14/2018 RESPONSIBLE COOK RESTAURANT: Poornima Dale M.D. EXAMINATION: MRI BRAIN WO CONTRAST CLINICAL INDICATION: Anesthesia of the skin. TECHNIQUE: IR T1 sagittal, FLAIR axial, FSE T2 axial, T1 axial, DWI axial andcoronal, SWI axial, without intravenous contrast. COMPARISON: Head CT of 05/03/2015 FINDINGS: The ventricles, sulci and cisterns are age appropriate. There is nomass, mass effect or acute intracranial hemorrhage. There is noextra-axial fluid collection. There is no restricted diffusion to suggestan acute ischemic injury. There is no susceptibility to suggest remotehemorrhage. There are scattered periventricular and subcortical foci ofT2 and FLAIR signal hyperintensity which are nonspecific however, mayreflect the sequela of small-vessel ischemic injury. Globes, orbits and bony calvarium are intact. Visualized paranasalsinuses are clear. Flow voids of the major intracranial vessels are intact. IMPRESSION: Nonspecific white matter changes which are likely related to the sequelaof small-vessel ischemic injury. Dictated: 07/14/2018 3:01 PM Report ID: [id number] Report signed in external system at 07/14/2018 15:01 Reported By: Poornima Dale M.D. (AMAN) Signed By: Poornima Dale M.D. (SYLVESTER) Clarissa Salmeron MD IMG MRI PROCEDUR ES documented in this encounter Visit Diagnoses Diagnosis Left arm numbness Disturbance of skin sensation Left leg numbness Disturbance of skin sensation Left arm numbness Disturbance of skin sensation Left leg numbness Disturbance of skin sensation documented in this encounter Care Teams Relief Salesperson Relationship Specialty Start Date End Date Clarissa Salmeron MD [address] [facility], [address] [place] [address] PCP - General Internal Medicine 01/06/17 04/13/19 documented as of this encounter
--- OUTSIDE RECORDS SUMMARY | 2024-04-12 15:40 | XMS_ITS | Encounter Summary ---
Author Organization [facility] Address [address] [facility], [address] [place] [address] Care Team Providers Care Flat Examiner Name Role Phone Clarissa Salmeron MD Primary Care Provider + Encounter Details Date Type Department Care Team (Late st Contact Info) Description 05/12/2017 Ancillary Orders [facility] Ultrasound [address] [place] [phone] Stiven Diego MD [address] [place] [address] Social History Tobacco Use Types Packs/Day Years Used Date Smoking Tobacco: Never Sex and Gender Information Value Date Recorded Sex Assigned at Not on file Gender Identity Not on file Sexual Orientation Not on file documented as of this encounter Plan of Treatment Not on file documented as of this encounter Visit Diagnoses Not on filedocumented in this encounter Care Teams Flat Examiner Relationship Specialty Start Date End Date Clarissa Salmeron MD [address] [facility], [address] [place] [address] PCP - General Internal Medicine 01/06/17 04/13/19 documented as of this encounter
--- OUTSIDE RECORDS SUMMARY | 2024-04-12 15:40 | XMS_ITS | Encounter Summary ---
Author Organization [facility] Address [address] [facility], [address] [place] [address] Care Team Providers Care Industrial Ecology Technician Name Role Phone Clarissa Salmeron MD Primary Care Provider + Encounter Details Date Type Department Care Team (Late st Contact Info) Description 04/01/2018 Telephone [facility] [address] [facility], [address] [place] [address] Clarissa Salmeron MD [address] [facility], [address] [place], [place] [phone] Social History Tobacco Use Types Packs/Day Years Used Date Smoking Tobacco: Never Sex and Gender Information Value Date Recorded Sex Assigned at Not on file Gender Identity Not on file Sexual Orientation Not on file documented as of this encounter Miscellaneous Notes * Telephone Encounter - Fany Espinoza NP - 04/01/2018 2:15 PM EDT Pt called again, it is fine to see at 4pm * Telephone Encounter - Gisel Cope - 04/01/2018 1:59 PM EDT Would you be able to take in this patient at 4:00pm today for a possible UTI? She says she works and is only available at 4:00. documented in this encounter Plan of Treatment Not on file documented as of this encounter Visit Diagnoses Not on filedocumented in this encounter Care Teams Industrial Ecology Technician Relationship Specialty Start Date End Date Clarissa Salmeron MD [address] [facility], [address] [place] [address] PCP - General Internal Medicine 01/06/17 04/13/19 documented as of this encounter
--- OUTSIDE RECORDS SUMMARY | 2024-04-12 15:40 | XMS_ITS | Encounter Summary ---
Author Organization [facility] Address [address] [facility], [address] [place] [address] Care Team Providers Care Stenographer Secretary Name Role Phone Clarissa Salmeron MD Primary Care Provider + Encounter Details Date Type Department Care Team (Late st Contact Info) Description 07/08/2018 Scan Document - View in Chart [facility] [address] [facility], [address] [place], [place] [phone] Pamela Barrera MA [facility] Social History Tobacco Use Types Packs/Day Years [...] on filedocumented in this encounter Care Teams Stenographer Secretary Relationship Specialty Start Date End Date Clarissa Salmeron MD [address] [facility], [address] [place] [address] PCP - General Internal Medicine 01/06/17 04/13/19 documented as of this encounter
--- OUTSIDE RECORDS SUMMARY | 2024-04-12 15:40 | XMS_ITS | Encounter Summary ---
Author Organization [facility] Address [address] [facility], [address] [place] [address] Care Team Providers Care Bulwark Carpenter Name Role Phone Clarissa Salmeron MD Primary Care Provider + Reason for Visit * Specialty (Routine) - Closed Specialty Diagnoses / Procedures Referred By Contac t Referred To Contact Physical Therapy Diagnoses SHOULDER PAIN Procedures PHYSICAL THERAPY Clarissa Salmeron MD [address] [facility], [address] [place] [address] [place] [address] [address] [facility], [address] [place] [phone] Referral ID Status Reason Start Date Expiration Date Visits Re quested Visits Authorized [id number] Closed 05/20/2018 09/20/2018 9 9 Encounter Details Date Type Department Care Team (Late st Contact Info) Description 05/20/2018 9:30 AM EDT Rehab [facility] [address] [facility], [address] [place] [address] Clarissa Salmeron MD [address] [facility], [address] [place], [place] [phone] Anaya Pearl, PT Impingement syndrome, shoulder, left (Primary Dx) Social History Tobacco Use Types Packs/Day Years Used Date Smoking Tobacco: Never Sex and Gender Information Value Date Recorded Sex Assigned at Not on file Gender Identity Not on file Sexual Orientation Not on file documented as of this encounter Progress Notes * Anaya HerlindaNavneetChandu, PT - 05/20/2018 9:30 AM EDT [facility] [address] [place] [address], [address] [facility] [address] EVALUATION Nena Ingram is a 58 y.o. female who has been referred to physical therapy for left shoulder pain. Referral Date: Referring Provider:Abimael Sousa MD; Stiven Dieog MD Past Medical History: Diagnosis Date ??? H/O colonoscopy 05/30/2014, Dr. Hoover, 2 polyps (TAs), f/u 5 years ??? Psoriasis Subjective Evaluation History of Present Illness Mechanism of injury: Patient is 58 year old female who presents with left shoulder pain which beganover a year ago pushing a patient in a wheelchair and felt pain and had PT symptoms got better but never went away however patient went back to work. Recently symptoms got worse gradually and patientnot working because of the pain and awaiting MRI on neck. Pain Current pain ratin At worst pain ratin Location: left side of neck down arm as far as the left thumb; +n/t Quality: radiating, dull ache and discomfort Aggravating factors: movement Progression: worsening Hand dominance: right Diagnostic Tests X-ray: abnormal MRI studies: abnormal Treatments Previous treatment: physical therapy Patient Goals Patient goals for therapy: increased strength, independence with ADLs/IADLs, return to sport/leisure activities, return to work and increased motion Objective Static Posture Head Forward. Shoulders Rounded. Palpation Left Tenderness of the anterior deltoid, biceps, middle deltoid and posterior deltoid. Tenderness Left Shoulder Tenderness in the AC joint, biceps tendon (proximal) and supraspinatus tendon. Additional Tenderness Details Patient reports tender to palpation along most of arm, forearm wrist and 1st MCP Active Range of Motion Left Shoulder Flexion: 120 degrees with pain Abduction: 120 degrees with pain External rotation 0??: 45 degrees with pain External rotation BTH: C2 with pain Internal rotation 45??: 70 degrees Internal rotation BTB: L2 with pain Strength/Myotome Testing Left Shoulder Planes of Motion Flexion: 3+ Abduction: 3+ External rotation at 0??: 3+ Tests Left Shoulder Positive full can, painful arc, ULTT1 and ULTT2. Negative ULTT3 and ULTT4. Assessment & Plan Assessment Assessment details: Patient is 58 year old female with long history of left shoulder pain and now presents to PT due to radiating pain from shoulder into hand. Patient demonstrates impairments in ROM, strength and function with pain. Difficult to assess if arm pain is originating from neck or is muscular origin. Patient awaiting MRI of neck to determine. Patient may also benefit from assessment with Physiatry. Impairment List Decreased Range of Motion Decreased Functional Strength Increased Pain/Swelling Decreased Flexibility Decreased ADL and Functional Mobility Altered Posture/Poor Body Mechanics Assessment and Rehab Potential Rehabilitation Potential: fair Treatment Plan Short Term Goals: Increased functional ROM by 10 Increase functional strength by 1 Decrease patient complaint of pain to 2 Patient demonstrates appropriate posture and body mechanics Bike Designer/Discharge Goals: Able to return to functional activities, i.e. work duties Independent with pain management techniques Independent with home exercise program The patient will be seen by the PT/PRESCHOOL DISABILITY TEACHER with support from the Label Operator 1-2 times/week for 4-6weeks. Treatment Intervention: Therapeutic exercises Patient education Manual techniques Modalities: heat Cervical traction Patient rx limited today because patient arrived 15 minutes late for appointment; HP x 8' Anaya Pearl, PT 05/20/2018 9:46 AM I certify that Nena Ingram requires the stated services. Physician's Signature: Print Name: Date: Time: documented in this encounter Plan of Treatment Not on file documented as of this encounter Visit Diagnoses Diagnosis Impingement syndrome, shoulder, left- Primary documented in this encounter Care Teams Bulwark Carpenter Relationship Specialty Start Date End Date Clarissa Salmeron MD [address] [facility], [address] [place] [address] PCP - General Internal Medicine 01/06/17 04/13/19 documented as of this encounter
--- OUTSIDE RECORDS SUMMARY | 2024-04-12 15:40 | XMS_ITS | Encounter Summary ---
Author Organization [facility] Address [address] [facility] [address] [place] [address] Care Team Providers Care Die Cleaner Name Role Phone Clarissa Salmeron MD Primary Care Provider + Encounter Details Date Type Department Care Team (Late st Contact Info) Description 05/07/2018 Procedure [facility] MRI [address] [place] [phone] Social History Tobacco Use Types Packs/Day Years Used Date Smoking Tobacco: Never Sex and Gender Information Value Date Recorded Sex Assigned at Not on file Gender Identity Not on file Sexual Orientation Not on file documented as of this encounter Plan of Treatment Not on file documented as of this encounter Visit Diagnoses Not on filedocumented in this encounter Care Teams Die Cleaner Relationship Specialty Start Date End Date Clarissa Salmeron MD [address] [facility], [address] [place], [place] [phone] PCP - General Internal Medicine 01/06/17 04/13/19 documented as of this encounter
--- OUTSIDE RECORDS SUMMARY | 2024-04-12 15:40 | XMS_ITS | Encounter Summary ---
Author Organization [facility] Address [address] [facility], [address] [place] [address] Care Team Providers Care Installation And Repair Technician Name Role Phone Clraissa Salmeron MD Primary Care Provider + Reason for Referral * Diagnostic Imaging (Routine) - Closed Specialty Diagnoses / Procedures Referred By Contac t Referred To Contact Radiology Diagnoses Left shoulder pain Procedures MRI Cervical Spine without Contrast Stiven Diego MD [address] [place] [address] Referral ID Status Reason Start Date Expiration Date Visits Re quested Visits Authorized [id number] Closed 05/07/2018 07/19/2018 1 1 Encounter Details Date Type Department Care Team (Late st Contact Info) Description 05/07/2018 Ancillary Orders [facility] MRI [address] [place] [phone] Stiven Diego MD [address] [place] [address] Left shoulder pain Social History Tobacco Use Types Packs/Day Years Used Date Smoking Tobacco: Never Sex and Gender Information Value Date Recorded Sex Assigned at Not on file Gender Identity Not on file Sexual Orientation Not on file documented as of this encounter Plan of Treatment Not on file documented as of this encounter Results * MRI Cervical Spine without Contrast (06/11/2018 1:50 PM EDT) Anatomical Region Laterality Modality C-spine Magnetic Resonan ce 06/11/2018 1:30 PM EDT Impressions 06/11/2018 3:02 PM EDT Mild is vertical spondylopathy. Dictated: 06/11/2018 3:02 PM Report ID: [id number] Report signed in external system at 06/11/2018 15:02 Reported By: Poornima Dale M.D. (SYLVESTER) Signed By: Poornima Dale M.D. (SYLVESTER) Narrative 06/11/2018 3:02 PM EDT RESPONSIBLE TELEX OPERATOR: Poornima Dale M.D. EXAMINATION: MRI CERVICAL SPINE WO CONTRAST CLINICAL INDICATION: Left shoulder pain. TECHNIQUE: Sagittal T1, T2, T2 with fat saturation, and axial gradient echo and T2 sequences, without intravenous contrast. COMPARISON: C-spine radiographs of 05/06/2018 and left shoulder radiographs of the same day FINDINGS: Vertebral body alignment: There is straightening of the cervical lordosis. Vertebral body heights: Preserved. Bone marrow: Normal. Intervertebral discs: There is loss of T2 prolongation involving C3 through C6 vertebral bodies, consistent with disc desiccation. Imaged portion of the posterior fossa and cervical cord: Cervical cord is normal in caliber and signal characteristics. ??The visualized posterior fossa is normal. Soft Tissues of the Neck: There is no cervical adenopathy. C2-3: Normal. C3-4: Normal. C4-5: Normal. C5-6: There is bilateral uncovertebral ridging. ??There is no central canal or foraminal stenosis. C6-7: There is no central canal or foraminal stenosis. C7-T1: There is no central canal or foraminal stenosis. Procedure Note Poornima Dale MD - 06/11/2018 RESPONSIBLE TELEX OPERATOR: Poornima Dale M.D. EXAMINATION: MRI CERVICAL SPINE WO CONTRAST CLINICAL INDICATION: Left shoulder pain. TECHNIQUE: Sagittal T1, T2, T2 with fat saturation, and axial gradient echo and [id number], without intravenous contrast. COMPARISON: C-spine radiographs of 05/06/2018 and left shoulder radiographs of thesame day FINDINGS: Vertebral body alignment: There is straightening of the cervicallordosis. Vertebral body heights: Preserved. Bone marrow: Normal. Intervertebral discs: There is loss of T2 prolongation involving [id number] C6 vertebral bodies, consistent with disc desiccation. Imaged portion of the posterior fossa and cervical cord: Cervical cord isnormal in caliber and signal characteristics. The visualized posteriorfossa is normal. Soft Tissues of the Neck: There is no cervical adenopathy. C2-3: Normal. C3-4: Normal. C4-5: Normal. C5-6: There is bilateral uncovertebral ridging. There is no central canalor foraminal stenosis. C6-7: There is no central canal or foraminal stenosis. C7-T1: There is no central canal or foraminal stenosis. IMPRESSION: Mild is vertical spondylopathy. Dictated: 06/11/2018 3:02 PM Report ID: [id number] Report signed in external system at 06/11/2018 15:02 Reported By: Poornima Dale M.D. (AMAN) Signed By: Poornima Dale M.D. (AMAN) Stiven Diego MD IMG MRI PROCEDURES documented in this encounter Visit Diagnoses Diagnosis Left shoulder pain Pain in joint, shoulder region Left shoulder pain Pain in joint, shoulder region documented in this encounter Care Teams Installation And Repair Technician Relationship Specialty Start Date End Date Clarissa Salmeron MD [address] [facility], [address] [place] [address] PCP - General Internal Medicine 01/06/17 04/13/19 documented as of this encounter
--- OUTSIDE RECORDS SUMMARY | 2024-04-12 15:40 | XMS_ITS | Encounter Summary ---
Author Organization [facility] Address [address] [facility], [address] [place] [address] Care Team Providers Care Parking Worker Name Role Phone Clarissa Salmeron MD Primary Care Provider + Reason for Referral * Diagnostic Imaging (Routine) - Closed Specialty Diagnoses / Procedures Referred By Carmen t Referred To Contact Diagnoses Left shoulder pain Procedures X-ray Shoulder 2+ Views Left Stiven Diego MD [address] [place] [address] Referral ID Status Reason Start Date Expiration Date Visits Re quested Visits Authorized [id number] Closed 05/12/2017 11/08/2017 1 1 Reason for Visit * Diagnostic Imaging (Routine) - Closed Specialty Diagnoses / Procedures Referred By Carmen benton Referred To Contact Diagnoses Left shoulder pain Procedures X-ray Shoulder 2+ Views Left Stiven Diego MD [address] [place] [address] Referral ID Status Reason Start Date Expiration Date Visits Re quested Visits Authorized [id number] Closed 05/12/2017 11/08/2017 1 1 Encounter Details Date Type Department Care Team (Latest Contact Info) Description 05/12/2017 1:47 PM EDT - 05/12/2017 11:59 PM EDT Hospital Encounter [facility] X-ray at [facility], [address] [facility], [address] [place] [address] Stiven Diego MD [address] [place] [address] Discharge Disposition: Home or Self Care Social History Tobacco Use Types Packs/Day Years Used Date Smoking Tobacco: Never Sex and Gender Information Value Date Recorded Sex Assigned at Not on file Gender Identity Not on file Sexual Orientation Not on file documented as of this encounter Medications at Time of Discharge Medication Sig Dispensed Refills Start Date End Date b complex vitamins tablet Take 1 tablet by mouth daily. Vitamin B-complex , Sig: as directed once a day calcium carbonate-vitamin D3 (OYSTER SHELL CALCIUM-VIT D3) 500 mg(1,250mg) -200 unit per tablet Take 1 tablet by mouth 2 (two) times a day with meals. 60 tablet 11 04/16/2017 ibuprofen (ADVIL,MOTRIN) 600 mg tablet Take 600 mg by mouth every 8 (eight) hours as needed for moderate pain (4-6). MAGNESIUM CHLORIDE ORAL Take by mouth. omega-3 fatty acids-fish oil (FISH OIL) 300-1,000 mg capsule Take 2 g by mouth daily. Fish Oil 1000 mg capsule, Si cap(s) orally once a day UNABLE TO FIND Med Name: tumeric biotin 1 mg tablet Take 1,000 mcg by mouth daily. biotin 1000 mcg tablet, Si tab(s) orally once a day 11/12/2018 cholecalciferol, vitamin D3, (cholecalciferol) 400 unit tablet Take 400 Units by mouth daily. Vitamin D3 400 intl units tablet, Si tab(s) orally once a day 11/12/2018 UNABLE TO FIND Physical Therapy , Sig: Left arm numbness evaluate and treat. Start Date: 10/10/2016 11/12/2018 documented as of this encounter Plan of Treatment Not on file documented as of this encounter Procedures Procedure Name Priority Date/Time Associated Diagnosis Comments XR SHOULDER 2+ VW LEFT Routine 05/12/2017 1:53 PM EDT Left shoulder pain documented in this encounter Results * X-ray Shoulder 2+ Views Left (05/12/2017 1:53 PM EDT) Anatomical Region Laterality Modality Shoulder Left Digital Radiogra phy 05/12/2017 2:05 PM EDT Impressions 05/12/2017 2:23 PM EDT No significant change since 01/11/2017. ??Soft tissue calcification most likely to represent rotator cuff calcific peritendinitis. ??No acute bony abnormality. Dictated: 05/12/2017 2:23 PM Report ID: [id number] Report signed in external system at 05/12/2017 14:23 Reported By: Peggy Tafoya M.D. (KALINA) Signed By: Peggy Tafoya M.D. (KALINA) Narrative 05/12/2017 2:23 PM EDT RESPONSIBLE VINYL INSTALLER: Peggy Tafoya M.D. EXAMINATION: XR SHOULDER 2+ VW LEFT CLINICAL INDICATION: Left shoulder pain TECHNIQUE: Four views of the left shoulder. COMPARISON: 01/11/2017 FINDINGS: Glenohumeral joint relationship is normal. ??There is no acute bony abnormality. ??The acromioclavicular joint is within normal limits. ??Faint calcific densities of the soft tissues are again noted likely to represent rotator cuff calcific peritendinitis. ??Soft tissues are otherwise unremarkable. Procedure Note Peggy Tafoya MD - 05/12/2017 RESPONSIBLE VINYL INSTALLER: Peggy Tafoya M.D. EXAMINATION: XR SHOULDER 2+ VW LEFT CLINICAL INDICATION: Left shoulder pain TECHNIQUE: Four views of the left shoulder. COMPARISON: 01/11/2017 FINDINGS: Glenohumeral joint relationship is normal. There is no acute bonyabnormality. The acromioclavicular joint is within normal limits. Faintcalcific densities of the soft tissues are again noted likely to representrotator cuff calcific peritendinitis. Soft tissues are otherwiseunremarkable. IMPRESSION: No significant change since 01/11/2017. Soft tissue calcification mostlikely to represent rotator cuff calcific peritendinitis. No acute bonyabnormality. Dictated: 05/12/2017 2:23 PM Report ID: [id number] Report signed in external system at 05/12/2017 14:23 Reported By: Peggy Tafoya M.D. (KALINA) Signed By: Peggy Tafoya M.D. (KALINA) Stiven Diego MD IMG XR PROCEDURES documented in this encounter Visit Diagnoses Diagnosis Left shoulder pain Pain in joint, shoulder region documented in this encounter Care Teams Parking Worker Relationship Specialty Start Date End Date Clarissa Salmeron MD [address] [facility], [address] [place] [address] PCP - General Internal Medicine 01/06/17 04/13/19 documented as of this encounter
--- OUTSIDE RECORDS SUMMARY | 2024-04-12 15:40 | XMS_ITS | Encounter Summary ---
Author Organization [facility] Address [address] [facility], [address] [place] [address] Care Team Providers Care Chimney Construction Supervisor Name Role Phone Clarissa Salmeron MD Primary Care Provider + Encounter Details Date Type Department Care Team (Late st Contact Info) Description 11/12/2018 Billing Encounter [facility] Main Lab [address] [place] [address] Clarissa Salmeron MD [address] [facility], [address] [place] [address] Social History Tobacco Use Types Packs/Day Years Used Date Smoking Tobacco: Never Smokeless Tobacco: Never Alcohol Use Standard Drinks/Week Comments Yes 0 (1 standard drink = 0.6 oz pur e alcohol) Depression Answer Date Recorded PHQ-2 Score Not on file 11/12/2018 PHQ-9 Total Score 13 11/12/2018 Drummond Scale Score: Not on file 9 Sex and Gender Information Value Date Recorded Sex Assigned at Not on file Gender Identity Not on file Sexual Orientation Not on file documented as of this encounter Plan of Treatment Not on file documented as of this encounter Visit Diagnoses Not on filedocumented in this encounter Care Teams Chimney Construction Supervisor Relationship Specialty Start Date End Date Clarissa Salmeron MD [address] [facility], [address] [place] [address] PCP - General Internal Medicine 01/06/17 04/13/19 documented as of this encounter
--- OUTSIDE RECORDS SUMMARY | 2024-04-12 15:40 | XMS_ITS | Encounter Summary ---
Author Organization [facility] Address [address] [facility], [address] [place] [address] Care Team Providers Care Ballistics Expert Forensic Name Role Phone Clarsisa Salmeron MD Primary Care Provider + Reason for Visit * Reason Onset Date Comments Needs results 07/26/2018 Encounter Details Date Type Department Care Team (Late st Contact Info) Description 07/26/2018 Telephone [facility] [address] [facility], [address] [place], [place] [phone] Clarissa Salmeron MD [address] [facility], [address] [place] [address] Needs results Social History Tobacco Use Types Packs/Day Years Used Date Smoking Tobacco: Never Smokeless Tobacco: Never Sex and Gender Information Value Date Recorded Sex Assigned at Not on file Gender Identity Not on file Sexual Orientation Not on file documented as of this encounter Miscellaneous Notes * Telephone Encounter - Pamela Barrera MA - 07/29/2018 2:57 PM EST Scanned into chart and mailed to the address. * Telephone Encounter - Clarissa Salmeron MD - 07/29/2018 10:14 AM EST Talk with patient about her MRI of her L-spine and of her brain. There were no abnormalities seen that could explain symptoms. I told her that I wanted her to see a neurologist, but she states that she no longer has insurance coverage. She also needs a stress test, and stated that she had another episode of chest pain. I encouraged her to the emergency room if this were to worsen. I encouraged her to see a neurologist and have a stress test once she receives insurance coverage. She is applying for disability insurance and I will fill out her form. Will you please mail this for me? Thank you. * Telephone Encounter - Clarissa Salmeron MD - 07/26/2018 5:39 PM EST Called patient to discuss, mailbox is full. * Telephone Encounter - Lynn Parra MA - 07/26/2018 4:04 PM EST Patient is looking for MRI results. Please call documented in this encounter Plan of Treatment Not on file documented as of this encounter Visit Diagnoses Not on filedocumented in this encounter Care Teams Ballistics Expert Forensic Relationship Specialty Start Date End Date Clarissa Salmeron MD [address] [facility], [address] [place] [address] PCP - General Internal Medicine 01/06/17 04/13/19 documented as of this encounter
--- OUTSIDE RECORDS SUMMARY | 2024-04-12 15:40 | XMS_ITS | Encounter Summary ---
Author Organization [facility] Address [address] [facility] [address] [facility], [address] [place] [address] Care Team Providers Care Zone Maintenance Technician Name Role Phone Clarissa Salmeron MD Primary Care Provider + Encounter Details Date Type Department Care Team (Late st Contact Info) Description 05/01/2017 Scan Document - View in Chart [facility] [address] [facility], [address] [place], [place] [phone] Clarissa Salmeron MD [address] [facility], [address] [place], [place] [phone] Social History Tobacco Use Types Packs/Day Years Used Date Smoking Tobacco: Never Sex and Gender Information Value Date Recorded Sex Assigned at Not on file Gender Identity Not on file Sexual Orientation Not on file documented as of this encounter Plan of Treatment Not on file documented as of this encounter Visit Diagnoses Not on filedocumented in this encounter Care Teams Zone Maintenance Technician Relationship Specialty Start Date End Date Clarissa Salmeron MD [address] [facility], [address] [place], [place] [phone] PCP - General Internal Medicine 01/06/17 04/13/19 documented as of this encounter
--- OUTSIDE RECORDS SUMMARY | 2024-04-12 15:40 | XMS_ITS | Encounter Summary ---
Author Organization [facility] Address [address] [facility], [address] [place] [address] Care Team Providers Care Product Handler Name Role Phone Clarissa Salmeron MD Primary Care Provider + Reason for Referral * Diagnostic Imaging (Routine) - Closed Specialty Diagnoses / Procedures Referred By Contac t Referred To Contact Radiology Diagnoses Left leg numbness Procedures MRI Lumbar Spine without Contrast Clarissa Salmeron MD [address] [facility], [address] [place] [address] Referral ID Status Reason Start Date Expiration Date Visits Re quested Visits Authorized [id number] Closed 07/07/2018 09/05/2018 1 1 Reason for Visit * Diagnostic Imaging (Routine) - Closed Specialty Diagnoses / Procedures Referred By Contac t Referred To Contact Radiology Diagnoses Left leg numbness Procedures MRI Lumbar Spine without Contrast Clarissa Salmeron MD [address] [facility], [address] [place], [place] [id number] Referral ID Status Reason Start Date Expiration Date Visits Re quested Visits Authorized [id number] Closed 07/07/2018 09/05/2018 1 1 Encounter Details Date Type Department Care Team (Latest Contact Info) Description 07/14/2018 1:14 PM EDT - 07/14/2018 11:59 PM EDT Hospital Encounter [facility] MRI at [address] [phone] Clarissa Salmeron MD [address] [facility], [address] [place] [address] Discharge Disposition: Home or Self Care Social [...] Procedure Name Priority Date/Time Associated Diagnosis Comments MRI LUMBAR SPINE WO CONTRAST Routine 07/14/2018 1:59 PM EDT Left leg numbness documented in this encounter Results * MRI Lumbar Spine without Contrast (07/14/2018 1:59 PM EDT) Anatomical Region Laterality Modality L-spine Magnetic Resonan ce 07/14/2018 2:30 PM EDT Impressions 07/19/2018 1:14 PM EDT 1. No neuroforaminal or spinal canal narrowing. 2. Multilevel degenerative changes of the lumbar spine. I, the attending physician, attest that I have performed and/or supervised the resident for the wells and critical components of this procedure. I have personally reviewed the images pertinent to this examination and agree with the interpretation. Dictated: 07/19/2018 1:14 PM Report ID: [id number] Report signed in external system at 07/19/2018 13:14 Reported By: Kaykay Chávez M.D. (resident) ([id number]) Signed By: Poornima Dale M.D. (KHOL) Narrative 07/19/2018 1:14 PM EDT RESPONSIBLE PRE SALES ARCHITECT: Poornima Dale M.D. EXAMINATION: MRI LUMBAR SPINE WO CONTRAST CLINICAL INDICATION: 58-year-old woman presenting with left lower extremity numbness without associated lower back pain. TECHNIQUE: Sagittal and axial T1 and T2, and sagittal fat-suppressed T2 sequences were obtained without intravenous contrast. COMPARISON: None. FINDINGS: Vertebral body alignment: The alignment is normal. Vertebral body heights: Maintained. Bone marrow: A focal fat is present in the L3 vertebral body. ??Bone marrow signal is otherwise normal. Intervertebral discs: There is loss of normal intervertebral disc signal at L2- L3, L4-L5, and L5-S1. ??Disc heights are maintained. Conus medullaris: Terminates at L1. ??No signal abnormalities. Other: A 1 cm cyst is present in the left kidney. T12-L1: ??No neuroforaminal or spinal canal narrowing. L1-2: No neuroforaminal or spinal canal narrowing. L2-3: Disc bulge, annular fissure, and ligamentum flavum infolding without neuroforaminal or spinal canal narrowing. L3-4: No neuroforaminal or spinal canal narrowing. L4-5: Annular fissure without neural foraminal or spinal canal narrowing. L5-S1: Mild disc bulge with annular fissure and fluid in the bilateral facet joints. ??There is no neuroforaminal or spinal canal narrowing. Procedure Note Poornima Dale MD - 07/19/2018 RESPONSIBLE PRE SALES ARCHITECT: Poornima Dale M.D. EXAMINATION: MRI LUMBAR SPINE WO CONTRAST CLINICAL INDICATION: 58-year-old woman presenting with left lower extremity numbness withoutassociated lower back pain. TECHNIQUE: Sagittal and axial T1 and T2, and sagittal fat-suppressed T2 sequenceswere obtained without intravenous contrast. COMPARISON: None. FINDINGS: Vertebral body alignment: The alignment is normal. Vertebral body heights: Maintained. Bone marrow: A focal fat is present in the L3 vertebral body. Bone marrowsignal is otherwise normal. Intervertebral discs: There is loss of normal intervertebral disc signalat L2- L3, L4-L5, and L5-S1. Disc heights are maintained. Conus medullaris: Terminates at L1. No signal abnormalities. Other: A 1 cm cyst is present in the left kidney. T12-L1: No neuroforaminal or spinal canal narrowing. L1-2: No neuroforaminal or spinal canal narrowing. L2-3: Disc bulge, annular fissure, and ligamentum flavum infolding withoutneuroforaminal or spinal canal narrowing. L3-4: No neuroforaminal or spinal canal narrowing. L4-5: Annular fissure without neural foraminal or spinal canalnarrowing. L5-S1: Mild disc bulge with annular fissure and fluid in the bilateralfacet joints. There is no neuroforaminal or spinal canal narrowing. IMPRESSION: 1. No neuroforaminal or spinal canal narrowing. 2. Multilevel degenerative changes of the lumbar spine. I, the attending physician, attest that I have performed and/or supervised the resident for the wells and critical components of this procedure. I have personally reviewed the images pertinent to this examination and agree with the interpretation. Dictated: 07/19/2018 1:14 PM Report ID: [id number] Report signed in external system at 07/19/2018 13:14 Reported By: Kaykay Chávez M.D. (resident) ([id number]) Signed By: Poornima Dale M.D. (KH) Clarissa Salmeron MD [facility] [place] documented in this encounter Visit Diagnoses Diagnosis Left leg numbness Disturbance of skin sensation documented in this encounter Care Teams Product Handler Relationship Specialty Start Date End Date Clarissa Salmeron MD [address] [facility], [address] [place] [address] PCP - General Internal Medicine 01/06/17 04/13/19 documented as of this encounter
--- OUTSIDE RECORDS SUMMARY | 2024-04-12 15:40 | XMS_ITS | Encounter Summary ---
Author Organization [facility] Address [address] [facility], [address] [place] [address] Care Team Providers Care Steam And Gas Turbines Assembler Name Role Phone Clarissa Salmeron MD Primary Care Provider + Reason for Referral * Diagnostic Imaging (Routine) - Closed Specialty Diagnoses / Procedures Referred By Contac t Referred To Contact Diagnoses Cervical pain Procedures X-ray Cervical Spine 2 or 3 Views Stiven Diego MD [address] [place] [address] Referral ID Status Reason Start Date Expiration Date Visits Re quested Visits Authorized [id number] Closed 05/06/2018 05/06/2019 1 1 Encounter Details Date Type Department Care Team (Late st Contact Info) Description 05/06/2018 Ancillary Orders X-ray at Medical Office Building, [address] [facility], [address] [place] [address] Stiven Diego MD [address] [place] [address] Cervical pain Social History Tobacco Use Types Packs/Day Years Used Date Smoking Tobacco: Never Sex and Gender Information Value Date Recorded Sex Assigned at Not on file Gender Identity Not on file Sexual Orientation Not on file documented as of this encounter Plan of Treatment Not on file documented as of this encounter Results * X-ray Cervical Spine 2 or 3 Views (05/06/2018 3:05 PM EDT) Anatomical Region Laterality Modality C-spine Digital Radiogra phy 05/06/2018 2:55 PM EDT Impressions 05/06/2018 4:28 PM EDT Mild anterolisthesis C4 on C5, progressed since the prior, and facet arthropathy I, the attending physician, attest that I have performed and/or supervised the resident for the wells and critical components of this procedure. I have personally reviewed the images pertinent to this examination and agree with the interpretation. Dictated: 05/06/2018 4:28 PM Report ID: [id number] Report signed in external system at 05/06/2018 16:28 Reported By: Jolene Dubon M.D. (resident) (AUKB) Signed By: iJm Aguilar M.D. (MAVERICK) Narrative 05/06/2018 4:28 PM EDT RESPONSIBLE PIPE LINE INSPECTOR: Jim Aguilar M.D. EXAMINATION: XR CERVICAL SPINE 2 OR 3 VW CLINICAL INDICATION: Pain in the cervical spine. TECHNIQUE: Lateral and AP views of the cervical spine. COMPARISON: Cervical spine radiographs 10/10/2016, 07/13/2013. FINDINGS: Vertebral body alignment: Straightening of the normal cervical lordosis, with mild anterolisthesis of C4 on C5 which has increased since the prior. Vertebral body heights: Normal. Intervertebral disks spaces: Preserved throughout. Posterior elements: There is unchanged moderate right greater than left facet arthropathy. Other bones and soft tissues: The skullbase is normal. The prevertebral soft tissues are normal in contour. The lung apices are clear. Procedure Note Jim Aguilar MD - 05/06/2018 RESPONSIBLE PIPE LINE INSPECTOR: Jim Aguilar M.D. EXAMINATION: XR CERVICAL SPINE 2 OR 3 VW CLINICAL INDICATION: Pain in the cervical spine. TECHNIQUE: Lateral and AP views of the cervical spine. COMPARISON: Cervical spine radiographs 10/10/2016, 07/13/2013. FINDINGS: Vertebral body alignment: Straightening of the normal cervical lordosis,with mild anterolisthesis of C4 on C5 which has increased since theprior. Vertebral body heights: Normal. Intervertebral disks spaces: Preserved throughout. Posterior elements: There is unchanged moderate right greater than leftfacet arthropathy. Other bones and soft tissues: The skullbase is normal. The prevertebralsoft tissues are normal in contour. The lung apices are clear. IMPRESSION: Mild anterolisthesis C4 on C5, progressed since the prior, and facetarthropathy I, the attending physician, attest that I have performed and/or supervised the resident for the ewlls and critical components of this procedure. I have personally reviewed the images pertinent to this examination and agree with the interpretation. Dictated: 05/06/2018 4:28 PM Report ID: [id number] Report signed in external system at 05/06/2018 16:28 Reported By: Jolene Dubon M.D. (resident) (AUKB) Signed By: Jim Aguilar M.D. ([facility]) Stiven Diego MD IMG XR PROCEDURES documented in this encounter Visit Diagnoses Diagnosis Cervical pain Cervicalgia Cervical pain Cervicalgia documented in this encounter Care Teams Steam And Gas Turbines Assembler Relationship Specialty Start Date End Date Clarissa Salmeron MD [address] [facility], [address] [place] [address] PCP - General Internal Medicine 01/06/17 04/13/19 documented as of this encounter
--- OUTSIDE RECORDS SUMMARY | 2024-04-12 15:40 | XMS_ITS | Encounter Summary ---
Author Organization [facility] Address [address] [facility], [address] [place] [address] Care Team Providers Care Precision Instrument Maker And Repairer Name Role Phone Clarissa Salmeron MD Primary Care Provider + Encounter Details Date Type Department Care Team (Late st Contact Info) Description 04/26/2018 11:00 AM EDT Office Visit [facility] [address] [facility], [address] [place] [address] Ana Rosa Grewal PA [address] [facility], [address] [place], [place] [id number] Atypical chest pain (Primary Dx); Chronic left shoulder pain Social History Tobacco Use Types Packs/Day Years Used Date Smoking Tobacco: Never Sex and Gender Information Value Date Recorded Sex Assigned at Not on file Gender Identity Not on file Sexual Orientation Not on file documented as of this encounter Last Filed Vital Signs Vital Sign Reading Time Taken Comments Blood Pressure 112/78 04/26/2018 11:16 AM EDT Pulse 78 04/26/2018 11:16 AM EDT Temperature 37.1 ??C (98.7 ??F) 04/26/2018 11:16 AM E DT Respiratory Rate 16 04/26/2018 11:16 AM EDT Oxygen Saturation 98% 04/26/2018 11:16 AM EDT Inhaled Oxygen Concentration - - Weight - - Height - - Body Mass Index - - documented in this encounter Progress Notes * RYAN Avilez - 04/26/2018 11:00 AM EDT Subjective ongoing left arm pain, new onset left chest pain/WELCH Nena Ingram is a 58 y.o. female who presents with concern for worsening, ongoing left shoulderpain with radicular pain and paresthesia to the hand and new onset chest pain. Patient tells me that over a year ago she fell while working and injured her left shoulder. She had followed up with [facility], imaging was done and she was found to have partial rotator cuff tear and nerve impingement. Patient tells me that surgery was recommended but she declines this as she is worried that she will have even worse functioning of her arm. Patient tells me that she tried a cortisone injection, but had a reaction. She also went to physical therapy and this was not helpful. She has beenworking for the last year with her symptoms. She tells me as of late, symptoms are becoming worse. She has an appointment with Dr. Sousa of [facility] tomorrow, she is not sure that this will be helpful as he has not been helpful in the past. She would like a second opinion. Patient also notes that this morning while she was driving to work she developed sudden onset sharp, left-sided chest pain that occurred for 1-2 seconds and completely resolved. Patient tells me thatshe is not sure if this is related to her shoulder. Upon arriving at work, she walked up to 4 flights of stairs to her office as she typically does, and noted shortness of breath. She tells me that this has never happened before. Patient did see diesel retrofit installer, Blanquita Mars, when shoulder was originally injured as she was having some chest pain and it was not sure if chest pain was cardiac or related to the shoulder. Stress echo was recommended and was not obtained. REVIEW OF SYSTEMS: see above Vitals: 04/26/18 1116 BP: 112/78 Pulse: 78 Resp: 16 Temp: 37.1 ??C (98.7 ??F) TempSrc: Oral SpO2: 98% Physical Exam Constitutional: She appears well-developed and well-nourished. Non-toxic appearance. No distress. HENT: Head: Normocephalic. Mouth/Throat: Uvula is midline, oropharynx is clear and moist and mucous membranes are normal. No tonsillar exudate. Eyes: Pupils are equal, round, and reactive to light. Cardiovascular: Normal rate, regular rhythm and normal heart sounds. Exam reveals no gallop and no friction rub. No murmur heard. Pulmonary/Chest: Effort normal and breath sounds normal. She has no wheezes. She has no rales. She exhibits no tenderness. Lymphadenopathy: She has no cervical adenopathy. Vitals reviewed. 1. Atypical chest pain 58 yo female with atypical CP that occurred for seconds this morning, followed by SOB, both now resolved. She will undergo stress echo and I will f/u with her once test returns. She will let me know if SX return or should she develop additional SX. - EKG (IN OUTPATIENT OFFICE): NSR, rate 68, inverted T waves in V 1,2,4,5 seen on prior EKG's, no other abnl. 2. Chronic left shoulder pain Recommended f/u with Dr. Sousa and to f/u at [facility] for 2 nd opinion documented in this encounter Plan of Treatment Not on file documented as of this encounter Procedures Procedure Name Priority Date/Time Associated Diagnosis Comments EKG Routine 04/26/2018 Atypical chest pain documented in this encounter Results * EKG (IN OUTPATIENT OFFICE) (04/26/2018) Ana Rosa DAVIS ECG ORDERABLES documented in this encounter Visit Diagnoses Diagnosis Atypical chest pain- Primary Other chest pain Chronic left shoulder pain Pain in joint, shoulder region documented in this encounter Care Teams Precision Instrument Maker And Repairer Relationship Specialty Start Date End Date Clarissa Salmeron MD [address] [place] [address], [address] [place] [address] PCP - General Internal Medicine 01/06/17 04/13/19 documented as of this encounter
--- OUTSIDE RECORDS SUMMARY | 2024-04-12 15:40 | XMS_ITS | Encounter Summary ---
Author Organization [facility] Address [address] [facility], [address] [place] [address] Care Team Providers Care Banquet Captain Name Role Phone Clarissa Salmeron MD Primary Care Provider + Encounter Details Date Type Department Care Team (Late st Contact Info) Description 07/07/2018 Procedure Pass [facility] MRI at [address] [place] [phone] Social History Tobacco Use Types Packs/Day Years [...] on filedocumented in this encounter Care Teams Banquet Captain Relationship Specialty Start Date End Date Clarissa Salmeron MD [address] [facility], [address] [place], [place] [phone] PCP - General Internal Medicine 01/06/17 04/13/19 documented as of this encounter
--- OUTSIDE RECORDS SUMMARY | 2024-04-12 15:40 | XMS_ITS | Encounter Summary ---
Author Organization [facility] Address [address] [facility], [address] [place] [address] Care Team Providers Care Attorney Recruiter Name Role Phone Clarissa Salmeron MD Primary Care Provider + Reason for Referral * Diagnostic Imaging (Routine) - Closed Specialty Diagnoses / Procedures Referred By Contac t Referred To Contact Radiology Diagnoses Left shoulder pain Procedures MRI Cervical Spine without Contrast Stiven Diego MD [address] [place] [address] Referral ID Status Reason Start Date Expiration Date Visits Re quested Visits Authorized [id number] Closed 05/07/2018 07/19/2018 1 1 Reason for Visit * Diagnostic Imaging (Routine) - Closed Specialty Diagnoses / Procedures Referred By Contac t Referred To Contact Radiology Diagnoses Left shoulder pain Procedures MRI Cervical Spine without Contrast Stiven Diego MD [address] [place] [address] Referral ID Status Reason Start Date Expiration Date Visits Re quested Visits Authorized [id number] Closed 05/07/2018 07/19/2018 1 1 Encounter Details Date Type Department Care Team (Latest Contact Info) Description 06/11/2018 1:05 PM EDT - 06/11/2018 11:59 PM EDT Hospital Encounter [facility] MRI [address] [place] [phone] Stiven Diego MD [address] [place] [address] Discharge Disposition: Home or Self Care Social [...] Name Priority Date/Time Associated Diagnosis Comments MRI CERVICAL SPINE WO CONTRAST Routine 06/11/2018 1:50 PM EDT Left shoulder pain documented in this encounter Results * MRI Cervical Spine without Contrast (06/11/2018 1:50 PM EDT) Anatomical Region Laterality Modality C-spine Magnetic Resonan ce 06/11/2018 1:30 PM EDT Impressions 06/11/2018 3:02 PM EDT Mild is vertical spondylopathy. Dictated: 06/11/2018 3:02 PM Report ID: [id number] Report signed in external system at 06/11/2018 15:02 Reported By: Poornima Dale M.D. (SYLVESTER) Signed By: Poornima Dale M.D. (SYLVESTER) Narrative 06/11/2018 3:02 PM EDT RESPONSIBLE HOUSE NURSE: Poornima Dale M.D. EXAMINATION: MRI CERVICAL SPINE [...] Note Poornima Dale MD - 06/11/2018 RESPONSIBLE HOUSE NURSE: Poornima Dale M.D. EXAMINATION: MRI CERVICAL SPINE WO CONTRAST CLINICAL INDICATION: Left shoulder pain. TECHNIQUE: Sagittal T1, T2, T2 with fat saturation, and axial gradient echo and [id number], without intravenous contrast. COMPARISON: C-spine radiographs of 05/06/2018 and left shoulder radiographs of thesame day FINDINGS: Vertebral body alignment: There is straightening of the cervicallordosis. Vertebral body heights: Preserved. Bone marrow: Normal. Intervertebral discs: There is loss of T2 prolongation involving [id number] C6 vertebral bodies, consistent with disc desiccation. [...] spondylopathy. Dictated: 06/11/2018 3:02 PM Report ID: [id number] Report signed in external system at 06/11/2018 15:02 Reported By: Poornima Dale M.D. (AMAN) Signed By: Poornima Dale M.D. (SYLVESTER) Stiven Diego MD IMG MRI PROCEDURES documented in this encounter Visit Diagnoses Diagnosis Left shoulder pain Pain in joint, shoulder region documented in this encounter Care Teams Attorney Recruiter Relationship Specialty Start Date End Date Clarissa Salmeron MD [address] [facility], [address] [place] [address] PCP - General Internal Medicine 01/06/17 04/13/19 documented as of this encounter
--- OUTSIDE RECORDS SUMMARY | 2024-04-12 15:40 | XMS_ITS | Encounter Summary ---
Author Organization [facility] Address [address] [facility], [address] [place] [address] Care Team Providers Care Head Gauge Unit Operator Name Role Phone Clarissa Salmeron MD Primary Care Provider + Reason for Visit * Specialty (Routine) - Closed Specialty Diagnoses / Procedures Referred By Contflako t Referred To Contact Physical Therapy Diagnoses Left shoulder pain Procedures PHYSICAL THERAPY Clarissa Salmeron MD [address] [facility], [address] [place] [address] [facility] [address] [facility], [address] [place] [phone] Referral ID Status Reason Start Date Expiration Date Visits Re quested Visits Authorized [id number] Closed 04/15/2017 05/23/2017 6 6 Encounter Details Date Type Department Care Team (Late st Contact Info) Description 05/19/2017 8:30 AM EDT Rehab [facility] Physical Therapy [address] [facility], [address] [place] [address] Clarissa Salmeron MD [address] [facility], [address] [place], [place] [phone] Manfred Mejia, FRANCISCO Adhesive bursitis of left shoulder (Primary Dx) Social History Tobacco Use Types Packs/Day Years Used Date Smoking Tobacco: Never Sex and Gender Information Value Date Recorded Sex Assigned at Not on file Gender Identity Not on file Sexual Orientation Not on file documented as of this encounter Progress Notes * Manfred Mejia, PT - 05/19/2017 8:30 AM EDT Rehabilitation Services Physical Therapy [address] [facility], [address] [facility] [address] PROGRESS NOTE Nena Ingram is a 57 y.o. female. Subjective Pain the same, not doing any exercises, MD states she needs surgery Objective [facility]HP codmans Wall wlaking Cane ex ice Assessment/Plan Low tolerance ROM, pt not compliant HEP, D/C at this time Manfred Mejia, PT 05/19/2017 documented in this encounter Plan of Treatment Not on file documented as of this encounter Visit Diagnoses Diagnosis Adhesive bursitis of left shoulder- Primary documented in this encounter Care Teams Head Gauge Unit Operator Relationship Specialty Start Date End Date Clarissa Salmeron MD [address] [facility], [address] [place] [address] PCP - General Internal Medicine 01/06/17 04/13/19 documented as of this encounter
--- OUTSIDE RECORDS SUMMARY | 2024-04-12 15:40 | XMS_ITS | Encounter Summary ---
Author Organization [facility] Address [address] [facility], [address] [place] [address] Care Team Providers Care Caterpillar Mechanic Name Role Phone Clarissa Salmeron MD Primary Care Provider + Encounter Details Date Type Department Care Team (Late st Contact Info) Description 08/10/2018 Telephone [facility] [address] [facility], [address] [place], [place] [id number] Clarissa Salmeron MD [address] [facility], [address] [place], [place] [id number] Social History Tobacco Use Types Packs/Day Years Used Date Smoking Tobacco: Never Smokeless Tobacco: Never Sex and Gender Information Value Date Recorded Sex Assigned at Not on file Gender Identity Not on file Sexual Orientation Not on file documented as of this encounter Miscellaneous Notes * Telephone Encounter - Mirna Staples MA - 09/09/2018 9:16 AM EST I called patient and left a second message to call me and schedule this appointment.t * Telephone Encounter - Clarissa Salmeron MD - 08/10/2018 12:37 PM EST Yes please, thank you. * Telephone Encounter - Mirna Staples MA - 08/10/2018 11:42 AM EST I reached out to patient and I was not able to leave a [facility], mailbox full. Will you consider I can send her a reminder letter, due for screening mammogram. Last one done was 06/14/2015 results ACR BI-RADS Category 1: Negative. documented in this encounter Plan of Treatment Not on file documented as of this encounter Visit Diagnoses Not on filedocumented in this encounter Care Teams Caterpillar Mechanic Relationship Specialty Start Date End Date Clarissa Salmeron MD [address] [facility], [address] [place] [address] PCP - General Internal Medicine 01/06/17 04/13/19 documented as of this encounter
--- OUTSIDE RECORDS SUMMARY | 2024-04-12 15:40 | XMS_ITS | Clinical Summary ---
Author Organization [facility] Address [address] [facility], [address] [place] [address] Care Team Providers Care Pipe Welder Name Role Phone Unavailable Primary Care Provider Unavailabl e Allergies No known active allergies Medications Medication Sig Dispensed Refills Start Date End Date Status omega-3 fatty acids-fish oil (FISH OIL) 300-1,000 mg capsule Take 2 g by mouth daily. Fish Oil 1000 mg capsule, Si cap(s) orally once a day Active b complex vitamins tablet Take 1 tablet by mouth daily. Vitamin B-complex , Sig: as directed once a day Active MAGNESIUM CHLORIDE ORAL Take by mouth. Active ibuprofen (ADVIL,MOTRIN) 600 mg tablet Take 600 mg by mouth every 8 (eight) hours as needed for moderate pain (4-6). Active UNABLE TO FIND Med Name: tumeric Act benja calcium carbonate-vitamin D3 (OYSTER SHELL CALCIUM-VIT D3) 500 mg(1,250mg) -200 unit per tablet Take 1 tablet by mouth 2 (two) times a day with meals. 60 tablet 11 04/16/2017 Active aspirin 81 mg EC tablet Take 81 mg by mouth daily. Active cranberry 405 mg capsule Take by mouth. Active Active Problems Problem Noted Date Diagnosed Date Chronic nonintractable headache 11/14/2018 History of hypertension 04/07/2017 History of gestational diabetes 12/24/2016 Overview: Will check an a1c today. - Abstracted by on 12/24/2016 for [facility] Resolved Problems Problem Noted Date Diagnosed Date Resolved Date Urinary tract infection without hematuria 04/01/2018 11/12/2018 Immunizations Name Administration Dates Next Due Influenza Vaccine - STANDARD - SDV (FLUZONE/FLUARIX/FLULAVAL/AFLURIA) 06/23/2017 Influenza Vaccine - Trivalen t (IIV3), split virus - PF (Afluria/Flulaval/Fluzone/Fluarix) 06/22/2012 TDAP (Boostrix/Adacel) 03/21/2013 Td (adult), 2 Lf tetanus tox oid, preservative free, adsorbed (TDVAX) 07/12/2013 influenza, unspecified formulation 06/24,06/28/2015,06/22/2014,2012 Family History Medical History Relation Comments Hypertension Brother Stroke Father Stroke Father's Brother Hypertension Mother Hypertension Sister Pulmonary embolism Sister No Known Problems Son 1 No Known Problems Son 2 Relation Status Comments Brother Alive Father Father's Brother Maternal Grandfather Maternal Grandmother Mother Alive Paternal Grandfather Paternal Grandmother Sister Son 1 Alive Son 2 Alive Social History Tobacco Use Types Packs/Day Years Used Date Smoking Tobacco: Never Smokeless Tobacco: Never Tobacco Cessation:Counseling Given: No Alcohol Use Standard Drinks/Week Comments Yes 0 (1 standard drink = 0.6 oz pur e alcohol) Depression Answer Date Recorded PHQ-2 Score Not on file 11/12/2018 PHQ-9 Total Score 13 11/12/2018 Buck[place] Scale Score: Not on file 9 Sex and Gender Information Value Date Recorded Sex Assigned at Not on file Gender Identity Not on file Sexual Orientation Not on file Last Filed Vital Signs Vital Sign Reading Time Taken Comments Blood Pressure 138/78 11/12/2018 1:09 PM EST Pulse 82 11/12/2018 1:09 PM EST Temperature 36.7 ??C (98.1 ??F) 11/12/2018 1:09 PM ES T Respiratory Rate 16 07/06/2018 9:54 AM EDT Oxygen Saturation 98% 11/12/2018 1:09 PM EST Inhaled Oxygen Concentration - - Weight 50.8 kg (112 lb) 11/12/2018 1:09 PM EST Height 152.4 cm (5') 07/06/2018 9:54 AM EDT Body Mass Index 21.87 07/06/2018 9:54 AM EDT Plan of Treatment Health Maintenance Due Date Last Done Comments Hepatitis C Screening 1979 Shingrix (Zoster Recombinant) Vaccine (1 of 2) 2011 Breast Cancer Screening 06/14/2016 06/14/20 15, 06/14/2015, 06/14/2015, Additional history exists Colon Cancer Screening 05/30/2019 05/30/2014 Periodic Health Exam 11/12/2019 11/12/2018, 04/07/20 17 PAP Screening 04/07/2022 04/07/2017, 03/21, 07/12/2014, Additional history exists Tetanus Diphtheria and Pertussis Vaccines (TD and TDaP) (3 - Td or Tdap) 07/12/2023 07/12/2013, 03/21/2013 Influenza (Seasonal) 04/21/2024 06/23/2017, 06/24/2016, 06/28/2015, Additional history exists HIB Vaccines Aged Out No longer eligi ble based on patient's age to complete this topic HPV Vaccines Aged Out No longer eligi ble based on patient's age to complete this topic Meningococcal Vaccine Aged Out No vinicio martha eligible based on patient's age to complete this topic Pneumococcal Vaccine: Pediatrics (0 to 5 Years) and At-Risk Patients (6 to 64 Years) Aged Out No longer eligible based on patient's age to complete this topic Procedures Procedure Name Priority Date/Time Associated Diagnosis Comments DO NOT ORDER - PAP TEST Routine 04/07/2017 10:27 PM EDT Encounter for gynecological examination without abnormal finding MG SCREENING MAMMOGRAM Routine 06/14/2015 5:29 PM EDT HISTORICAL COLONOSCOPY Routine 05/30/2014 10:55 AM EDT from Last 3 Months or Most Recently Relevant to Health Maintenance Results * Pap test (04/07/2017 10:27 PM EDT) Interpretation Negative for squamous intraepithelial lesion or malignancy 04/15/2017 7:17 AM EDT [facility] Embedded Images 7 7:17 AM EDT [facility] Case Report Pap Test ?Case: [id number] ? Authorizing Provider: ??Clarissa Salmeron MD ?? Collected: ? 04/07/20177 ? Ordering Location: ? [facility] ?Received: ?04/07/201[address] ? [place] ? First Screen: ?Dorothea Harvey, CT(ASCP) ? Specimen: ?Pap Test, Thin Prep, TOOL KEEPER, Pap Test - Cx/Endcx ? 04/15/2017 7:17 AM [facility] Specimen Adequacy Satisfactory for interpretation 04/15/2017 7:17 AM [facility] Endocervical/Tra nsformation Zone Component Present 04/15/2017 7:17 AM [facility] Menstrual Status Post Menopausal 7:17 AM [facility] Clinical Information No previous abnormal 04/15/2017 7:17 AM [facility] Disclaimer This pap test was screened using the computerized ThinPrep Imaging System, then manually reviewed and interpreted. Cervical cytology is a screening test primarily for squamous cancers and precursors and has associated false-negative and false-positive results. New technologies such as liquid-based preparations may decrease but will not eliminate all false-negative results. Regular sampling and follow-up of unexplained clinical signs and symptoms are recommended to minimize false negative results. 04/15/2017 7:17 AM EDT [facility] Papthin (TOOL KEEPER, Pap Test - Cx/Endcx) 04/07/2017 10:27 PM EDT 04/07/2017 10:27 PM EDT Clarissa Salmeron MD LAB PATHOLOGY/CY TOLOGY ORDERABLES [facility] [address] [place] [address], * Mammography Screening Mammogram Bilateral (06/14/2015 5:29 PM EDT) Anatomical Region Laterality Modality Breast Bilateral Mammography 06/14/2015 5:29 PM EDT Narrative 06/15/2015 11:30 AM EDT ? NEAN INGRAM ? F ? [id number] ? Clarissa Salmeron M.D. ?UNK ? UNK ?[id number] ?1960 55 ?06/14/2015 ? Clinical History: ? LAST MAMMO 10/22/13 ? EXAM# ? TYPE/EXAM ? RESULT ? [id number] MAMAC/DIG SCREEN MAMMOGRAM ?Negative ? [id number] MAMAC/CAD SCREENING MAMMOGRAPHY Negative ? [id number] MAMAC/DIG SCREEN TOMOSYNTH BR ?? Negative ? Attending Radiologist: MD CHEUNG LEILA ?Clinical History: Annual screening. ? Technique: [Digital] MLO and CC views of each breast were ? performed. ? Computer aided detection (CAD) using the [employer] Second Look system ? and Tomosynthesis was utilized. ? Comparison: 2013 and exams dating back to 2006 ? Breast Composition: B - There are scattered areas of ? fibroglandular density. ? Findings: No suspicious clusters of calcifications, mammographic ? masses or architectural distortion is seen in either breast. ? Impression: ? No suspicious findings. ? Recommendation: Annual Screening. ? The written results were mailed to the patient. ? ACR BI-RADS Category 1: Negative ? Result Code: 1 ? Follow-up Code: N ? DD: ??06/15/2015 11:04:48 ? Report ID: ??[id number] ? Dictated: 06/15/15 1105 ? PAGE 1 ? Signed Report ? (CONTINUED) ? LAZARO,NENA ? F ? [id number] ? Jaron Yao.Schuyler.,Clarissa ?UNK ? UNK ?[id number] ?1960 55 ?06/14/2015 ? Clinical History: ? LAST MAMMO /10/04 ? EXAM# ? TYPE/EXAM ? RESULT ? [id number] MAMAC/DIG SCREEN MAMMOGRAM ?Negative ? [id number] MAMAC/CAD SCREENING MAMMOGRAPHY Negative ? [id number] MAMAC/DIG SCREEN TOMOSYNTH BR ?? Negative ? <Continued> ?---- Electronic Signature on File ---- ?Signed By: VIVI CHEUNG M.D. - ROLA ID: SYLVESTER ?Reported By: VIVI CHEUNG M.D. ?CC: Clarissa Salmeron M.D. ? PAGE 2 ? Signed Report ?CC: Clarissa Salmeron M.D. ? PAGE 2 ? Signed Report ? Radiologist SYLVESTER Supervisor Rough End: ZULEMA Supervisor Die Casting: IS.SQ Procedure Note Vivi Cheung MD - 10/08/2016 NENA INGRAM [id number] Jaron Reardon,Clarissa UNLauren [id number] 1960 55 06/14/2015 Clinical History: ? LAST MAMMO 10/22/13 EXAM# TYPE/EXAM RESULT [id number] MAMAC/DIG SCREEN MAMMOGRAM Negative [id number] MAMAC/CAD SCREENING MAMMOGRAPHY Negative [id number] MAMAC/DIG SCREEN TOMOSYNTH BR Negative Attending Radiologist: MD CHEUNG LEILA Clinical History: Annual screening. Technique: [Digital] MLO and CC views of each breast were performed. Computer aided detection (CAD) using the iCAD Second Look system and Tomosynthesis was utilized. Comparison: 2013 and exams dating back to 2006 Breast Composition: B - There are scattered areas of fibroglandular density. Findings: No suspicious clusters of calcifications, mammographic masses or architectural distortion is seen in either breast. Impression: No suspicious findings. Recommendation: Annual Screening. The written results were mailed to the patient. ACR BI-RADS Category 1: Negative Result Code: 1 Follow-up Code: N Report ID: [id number] Dictated: 06/15/15 1105 PAGE 1 Signed Report (CONTINUED) NENA INGRAM [id number] Jaron Reardon,Clarissa BAER [id number] 1960 55 06/14/2015 Clinical History: ? LAST MAMMO 10/22/13 EXAM# TYPE/EXAM RESULT [id number] MAMAC/DIG SCREEN MAMMOGRAM Negative [id number] MAMAC/CAD SCREENING MAMMOGRAPHY Negative [id number] MAMAC/DIG SCREEN TOMOSYNTH BR Negative <Continued> ---- Electronic Signature on File ---- Signed By: VIVI CHEUNG M.D. - ROLA ID: [email or web address] Reported By: VIVI CHEUNG M.D. CC: Clarissa Salmeron M.D. PAGE 2 Signed Report CC: Clarissa Salmeron M.D. PAGE 2 Signed Report Radiologist SYLVESTER Supervisor Rough End: ZULEMA Supervisor Die Casting: CATALINO Clarissa Salmeron MD IMG BI PROCEDURE S * HISTORICAL XC (05/30/2014 10:55 AM EDT) 05/30/2014 10:5 5 AM EDT [facility] RADIOLOGY SYSTEM - 05/30/2014 10:48 AM EDT ? M O U N T ?? A U B U R N ?? H O S P I T A L ?[address] [facility] ?? . ?? [place] ?? . ?? [place] ?? . ?? [address] ? COLONOSCOPY REPORT ? __ ?MR NO.: ??[id number] ?ATTENDING: ??Caryn Hoover M.D. ?NAME: ??NENA INGRAM ?PATIENT TELEPHONE: ??[phone] CELL ?FINANCIAL NO.: ??[id number] ? LOCATION: ??GI ?/AGE/SEX: ??62 ?54 ?F ?STATUS: ??REG CLI ?Version 1, electronically signed by Dr. Caryn Hoover M.D. on ?05/30/2014 at 10:55. ?Exam Type:Colonoscopy ?Exam Date:05/30/2014 ?Indications: Average-risk screening. ?Consent: The benefits, risks, and alternatives to the procedure were ?discussed and informed consent was obtained from the patient. ?H & P:History and physical were performed and documented on the day ?of the procedure. ?Preparation: The quality of the preparation wasexcellent. The patient ?received Nulytely in preparation for the procedure. Mallampati ?Classification: Class 1 - Uvula, faucial pillars, soft palate ?visible. EKG, a pulse, pulse oximetry, and blood pressure was ?monitored throughout the procedure. ASA Classification: Class 2 - ?Patient has mild to moderate systemic disturbance that may or may not ?be related to the disorder requiring surgery. ?Medications: Versed 4 mg IV. Demerol 50 mg IV. ?Rectal Exam: Normal rectal exam. ?Procedure: The colonoscope was passed through the anus under direct ?visualization and was advanced with ease to the cecum and cecum, ?confirmed by an appendiceal orifice, cecal strap ([place] foot), an ?ileocecal valve, an appendiceal orifice, cecal strap ([place] foot), ?and an ileocecal valve. The scope was withdrawn and the mucosa was ?carefully examined. The quality of the preparation was excellent. The ?views were excellent. The patient's toleration of the procedure was ?excellent. ?Scope(s)/SN:[id number] Start Time: 10:32 Cecum Time: 10:35 ?Stop Time: 10:45 ?Estimated Blood Loss: None. ?Findings: A single sessile polyp, measuring 4 mm in size, was found ?in the ascending colon. ??The polyp was completely removed by hot ?biopsy polypectomy. The polyp was retrieved and placed in a jar 1. A ?single sessile polyp, measuring 4 mm in size, was found in the ?sigmoid colon. ??The polyp was completely removed by hot biopsy ?polypectomy. The polyp was retrieved and placed in a jar 2. The ?terminal ileum, cecum, hepatic flexure, transverse colon, splenic ?flexure, descending colon, rectosigmoid junction, and rectum appeared ?PCP: Jaron Reardon,Clarissa ?SIGNING PHYSICAN:Caryn Hoover M.D. ?Form [id number], 11/28 ? [id number] ?NENA INGRAM ? Page 1 of 2 ?to be normal. The terminal ileum, cecum, hepatic flexure, transverse ?colon, splenic flexure, descending colon, rectosigmoid junction, and ?rectum appeared to be normal. On retroflexed view, the cecum and ?rectum appeared to be normal. ?Complications: There were no unplanned events. ?Impression: A single sessile polyp was found in the ascending colon ?(211.3); removed by hot biopsy polypectomy. A single sessile polyp ?was found in the sigmoid colon (211.3); removed by hot biopsy ?polypectomy. Normal terminal ileum, cecum, hepatic flexure, ?transverse colon, splenic flexure, descending colon, rectosigmoid ?junction, and rectum.normal terminal ileum, cecum, hepatic flexure, ?transverse colon, splenic flexure, descending colon, rectosigmoid ?junction, and rectum. Normal cecum and rectum. ?Recommendations: Colonoscopy recommended in 5-10 years, depending on ?path results. If both polyps are hyperplastic, then 10 years. If one ?or both is tubular adenomas, then 5 years. If any of them is sessile ?serrated or villous, then 3 years. The patient will be sent a ?reminder letter. ?Procedure Codes: [68106]Colonoscopy with removal of tumor(s), ?polyp(s), or other lesion(s) by hot biopsy forceps or bipolar cautery ?Version 1, electronically signed by Dr. Caryn Hoover M.D. on ?05/30/2014 at 10:55. ? Caryn Hoover M.D. ? Electronically signed by: ? Kiko Reardon,Caryn Yang ? Electronically signed on: ? 05/30/14 ??at 1055 ?KASH ?/WP.ENDO ?Dictated: ??05/30/14 ?1048 ?Transcribed: ?cc: ?PCP: Jaron Reardon,Clarissa ?SIGNING PHYSICAN:Caryn Hoover M.D.. ?Form [id number], 11/28 ? [id number] ?NENA INGRAM ? Page 2 of 2 Procedure Note Provider, MD Sudhir - 09/25/2016 M O U N T A U B U R N H O S P I T A L [address] [place] [address] .[id number] COLONOSCOPY REPORT MR NO.: [id number] ATTENDING: Caryn Vargas NAME: NENA INGRAM PATIENT TELEPHONE:[phone] CELL FINANCIAL NO.: [id number] LOCATION: [facility]/AGE/SEX: [age] F STATUS: REG CLI Version 1, electronically signed by Dr. Caryn Hoover M.D. on 05/30/2014 at 10:55. Exam Type:Colonoscopy Exam Date:05/30/2014 Indications: Average-risk screening. Consent: The benefits, risks, and alternatives to the procedurewere discussed and informed consent was obtained from the patient. H & P:History and physical were performed and documented on theday of the procedure. Preparation: The quality of the preparation wasexcellent. Thepatient received Nulytely in preparation for the procedure. Mallampati Classification: Class 1 - Uvula, faucial pillars, soft palate visible. EKG, a pulse, pulse oximetry, and blood pressure was monitored throughout the procedure. ASA Classification: Class 2 - Patient has mild to moderate systemic disturbance that may or maynot be related to the disorder requiring surgery. Medications: Versed 4 mg IV. Demerol 50 mg IV. Rectal Exam: Normal rectal exam. Procedure: The colonoscope was passed through the anus underdirect visualization and was advanced with ease to the cecum and cecum, confirmed by an appendiceal orifice, cecal strap ([place] foot), an ileocecal valve, an appendiceal orifice, cecal strap ([place]oot), and an ileocecal valve. The scope was withdrawn and the mucosa was carefully examined. The quality of the preparation was excellent.The views were excellent. The patient's toleration of the procedurewas excellent. Scope(s)/SN:[id number] Start Time: 10:32 Cecum Time: 10:35 Stop Time: 10:45 Estimated Blood Loss: None. Findings: A single sessile polyp, measuring 4 mm in size, wasfound in the ascending colon. The polyp was completely removed by hot biopsy polypectomy. The polyp was retrieved and placed in a jar 1.A single sessile polyp, measuring 4 mm in size, was found in the sigmoid colon. The polyp was completely removed by hot biopsy polypectomy. The polyp was retrieved and placed in a jar 2. The terminal ileum, cecum, hepatic flexure, transverse colon, splenic flexure, descending colon, rectosigmoid junction, and rectumappeared PCP: Clarissa Salmeron M.D. SIGNING PHYSICAN:Caryn Hoover M.D. 5318-DMR, 11/28 [id number],VERONICA Page 1 of 2 to be normal. The terminal ileum, cecum, hepatic flexure,transverse colon, splenic flexure, descending colon, rectosigmoid junction,and rectum appeared to be normal. On retroflexed view, the cecum and rectum appeared to be normal. Complications: There were no unplanned events. Impression: A single sessile polyp was found in the ascendingcolon (211.3); removed by hot biopsy polypectomy. A single sessile polyp was found in the sigmoid colon (211.3); removed by hot biopsy polypectomy. Normal terminal ileum, cecum, hepatic flexure, transverse colon, splenic flexure, descending colon, rectosigmoid junction, and rectum.normal terminal ileum, cecum, hepaticflexure, transverse colon, splenic flexure, descending colon, rectosigmoid junction, and rectum. Normal cecum and rectum. Recommendations: Colonoscopy recommended in 5-10 years, dependingon path results. If both polyps are hyperplastic, then 10 years. Ifone or both is tubular adenomas, then 5 years. If any of them issessile serrated or villous, then 3 years. The patient will be sent a reminder letter. Procedure Codes: [23034]Colonoscopy with removal of tumor(s), polyp(s), or other lesion(s) by hot biopsy forceps or bipolarcautery Version 1, electronically signed by Dr. Caryn Hoover M.D. on 05/30/2014 at 10:55. Caryn Hoover M.D. Electronically signed by: Caryn Hoover M.D. Electronically signed on: 05/30/14 at 1055 KASH /.ENDO Dictated: 05/30/14 1048 Transcribed: cc: PCP: Clarissa Salmeron M.D. SIGNING PHYSICAN:Caryn Hoover M.D. Form [id number], 11/28 [id number],VERONICA Page 2 of 2 Historical Provider MD SURGICAL HISTORY PROCEDURES [facility] [address] [place] [address], from Last 3 Months or Most Recently Relevant to Health Maintenance
--- OUTSIDE RECORDS SUMMARY | 2024-04-12 15:40 | XMS_ITS | Encounter Summary ---
Author Organization [facility] Address [address] [facility], [address] [place] [address] Care Team Providers Care Software Licensing Analyst Name Role Phone Clarissa Salmeron MD Primary Care Provider + Encounter Details Date Type Department Care Team (Latest Contact Info) Description 01/25/2019 Travel Social History Tobacco Use Types Packs/Day Years Used Date Smoking Tobacco: Never Smokeless Tobacco: Never Alcohol Use Standard Drinks/Week Comments Yes 0 (1 standard drink = 0.6 oz pur e alcohol) Depression Answer Date Recorded PHQ-2 Score Not on file 11/12/2018 PHQ-9 Total Score 13 11/12/2018 [place] Scale Score: Not on file 9 Sex and Gender Information Value Date Recorded Sex Assigned at Not on file Gender Identity Not on file Sexual Orientation Not on file documented as of this encounter Plan of Treatment Not on file documented as of this encounter Visit Diagnoses Not on filedocumented in this encounter Care Teams Software Licensing Analyst Relationship Specialty Start Date End Date Clarissa Salmeron MD [address] [facility], [address] [place] [address] PCP - General Internal Medicine 01/06/17 04/13/19 documented as of this encounter
--- OUTSIDE RECORDS SUMMARY | 2024-04-12 15:40 | XMS_ITS | Encounter Summary ---
Author Organization [facility] Address [address] [facility], [address] [place] [address] Care Team Providers Care Merchandise Complaint Adjuster Name Role Phone Clarissa Salmeron MD Primary Care Provider + Encounter Details Date Type Department Care Team (Latest Contact Info) Description 11/12/2018 Travel Social History Tobacco Use Types Packs/Day Years Used Date Smoking Tobacco: Never Smokeless Tobacco: Never Alcohol Use Standard Drinks/Week Comments Yes 0 (1 standard drink = 0.6 oz pur e alcohol) Depression Answer Date Recorded PHQ-2 Score Not on file 11/12/2018 PHQ-9 Total Score 13 11/12/2018 [place] Scale Score: Not on file 9 Sex and Gender Information Value Date Recorded Sex Assigned at Not on file Gender Identity Not on file Sexual Orientation Not on file documented as of this encounter Plan of Treatment Not on file documented as of this encounter Visit Diagnoses Not on filedocumented in this encounter Care Teams Merchandise Complaint Adjuster Relationship Specialty Start Date End Date Clarissa Salmeron MD [address] [facility], [address] [place] [address] PCP - General Internal Medicine 01/06/17 04/13/19 documented as of this encounter
--- OUTSIDE RECORDS SUMMARY | 2024-04-12 15:40 | XMS_ITS | Encounter Summary ---
Author Organization [facility] Address [address] [facility], [address] [place] [address] Care Team Providers Care Metal Numerical Control Programmer Name Role Phone Clarissa Salmeron MD Primary Care Provider + Reason for Visit * Diagnostic Imaging (Routine) - Closed Specialty Diagnoses / Procedures Referred By Contac t Referred To Contact Radiology Diagnoses Left arm numbness Left leg numbness Procedures MRI Brain without Contrast MRI Brain with and without Contrast Clarissa Salmeron MD [address] [facility], [address] [place] [address] Referral ID Status Reason Start Date Expiration Date Visits Re quested Visits Authorized [id number] Closed 07/07/2018 09/05/2018 1 1 Encounter Details Date Type Department Care Team (Latest Contact Info) Description 07/14/2018 1:14 PM EDT - 07/14/2018 11:59 PM EDT Hospital Encounter [facility] MRI at [address] [place] [address] Clarissa Salmeron MD [address] [facility], [address] [place], [place] [phone] Discharge Disposition: Home or Self Care Social [...] Name Priority Date/Time Associated Diagnosis Comments MRI BRAIN WO CONTRAST Routine 07/14/2018 2:36 PM EDT Left arm numbness Left leg numbness documented in this encounter Results * MRI Brain without Contrast (07/14/2018 2:36 PM EDT) Anatomical Region Laterality Modality Head Magnetic Resonan ce 07/14/2018 1:45 PM EDT Impressions 07/14/2018 3:01 PM EDT Nonspecific white matter changes which are likely related to the sequela of small-vessel ischemic injury. Dictated: 07/14/2018 3:01 PM Report ID: [id number] Report signed in external system at 07/14/2018 15:01 Reported By: Poornima Dale M.D. (SYLVESTER) Signed By: Poornima Dale M.D. (SYLVESTER) Narrative 07/14/2018 3:01 PM EDT RESPONSIBLE KETTLE OPERATOR HEAD: Poornima Dale M.D. EXAMINATION: MRI BRAIN WO [...] Note Poornima Dale MD - 07/14/2018 RESPONSIBLE KETTLE OPERATOR HEAD: Poornima Dale M.D. EXAMINATION: MRI BRAIN WO [...] injury. Dictated: 07/14/2018 3:01 PM Report ID: [id number] Report signed in external system at 07/14/2018 15:01 Reported By: Poornima Dlae M.D. (SYLVESTER) Signed By: Poornima Dale M.D. (SYLVESTER) Clarissa Salmeron MD IMG MRI PROCEDUR ES documented in this encounter Visit Diagnoses Diagnosis Left arm numbness Disturbance of skin sensation Left leg numbness Disturbance of skin sensation documented in this encounter Care Teams Metal Numerical Control Programmer Relationship Specialty Start Date End Date Clarissa Salmeron MD [address] [place] [address], [address] [place] [address] PCP - General Internal Medicine 01/06/17 04/13/19 documented as of this encounter
--- OUTSIDE RECORDS SUMMARY | 2024-04-12 15:40 | XMS_ITS | Encounter Summary ---
Author Organization [facility] Address [address] [place] [address] Care Team Providers Care Instructor Of Nursing Name Role Phone Arlen Ball REHAN Primary Care Provider [phone] Encounter Details Date Type Department Care Team (Latest Contact Info) Description 06/06/2020 Lab Requisition [facility] Pathology & Laboratory Medicine - [facility] [address] [place] [address] Flakita Rubio NP [address] [place], [place] [id number] Encounter for general adult medical examination without abnormal findings; Encounter for screening for malignant neoplasm of cervix; Encounter for screening for human papillomavirus (HPV) Social History Tobacco Use Types Packs/Day Years Used Date Smoking Tobacco: Never Assessed Sex and Gender Information Value Date Recorded Sex Assigned at Not on file Gender Identity Not on file Sexual Orientation Not on file documented as of this encounter Plan of Treatment Not on file documented as of this encounter Procedures Procedure Name Priority Date/Time Associated Diagnosis Comments PAP TEST Today 06/04/2020 13:30 EDT Encounter for general adult medical examination without abnormal findings Encounter for screening for malignant neoplasm of cervix Encounter for screening for human papillomavirus (HPV) HPV DNA DETECTION WITH GENOTYPING, PCR Today 06/04/2020 13:30 EDT Encounter for general adult medical examination without abnormal findings Encounter for screening for malignant neoplasm of cervix Encounter for screening for human papillomavirus (HPV) documented in this encounter Results * HUMAN PAPILLOMAVIRUS (HPV) DETECTION-HIGH RISK TYPES (06/04/2020 13:30 EDT) HPV other High Risk types, PCR Negative Negative 06/13/2020 15:19 EDT [facility] Comment:No E6 or E7 mRNA is detected from HPV types 16,18,31,33,35,39,45,51,52,56,58,59,66, and 68 by culture room worker mediated amplification. Papanicolaou smear specimen (specimen) CERVIX UTERI STRUCTURE / Unknown 06/04/2020 13:30 EDT 06/12/2020 10:26 EDT Flakita Rubio NP MICROBIOLOGY - GENER AL ORDERABLES [facility] [address] [place] [address] * PAP TEST (06/04/2020 13:30 EDT) Specimens A. Cervix and/or Endocervix , ThinPrep Imaging System with Manual Evaluation 06/13/2020 15:19 [facility] Specimen Adequacy Satisfactory for Evaluation - transformation zone component present 06/13/2020 15:19 [facility] General Categorization Negative for intraepithelial lesion or malignancy 06/13/2020 15:19 [facility] Attestation . 06/13/2020 15:19 [facility] at 1519 Clinical History SEE ORDER COMMENTS 06/13/2020 15:19 [facility] HPV The result for the Human Papillomavirus (HPV) Detection-High Risk Types is Negative. No E6 or E7 mRNA is detected from HPV types 16,18,31,33,35,39 ,45,51,52,56,58,5 9,66, and 68 by culture room worker mediated amplification.Sarita ting was performed on specimen [id number] and was resulted on 06/13/2020 1515 EDT by MELITON, LAB INSTRUMENT RESULTS IN 06/13/2020 15:19 T [facility] Performing Lab [facility] 06/13/2020 15:19 T [facility] Scanned Images 06/13/2020 15:19 T [facility] Papanicolaou smear specimen (specimen) CERVIX UTERI STRUCTURE / Unknown 06/04/2020 13:30 EDT 06/06/2020 9:09 EDT Flakita Rubio NP PATHOLOGY ORDERABLES [facility] [address] [place] [address] documented in this encounter Visit Diagnoses Diagnosis Encounter for general adult medical examination without abnormal findings Unspecified general medical examination Encounter for screening for malignant neoplasm of cervix Screening for malignant neoplasm of the cervix Encounter for screening for human papillomavirus (HPV) Special screening examination for human papillomavirus (HPV) documented in this encounter Care Teams Instructor Of Nursing Relationship Specialty Start Date End Date Arlen Ball FNP [address] [place] [address] PCP - General 09/21/20 documented as of this encounter
--- OUTSIDE RECORDS SUMMARY | 2024-04-12 15:40 | XMS_ITS | Encounter Summary ---
Author Organization [facility] Address [address] [facility], [address] [place] [address] Care Team Providers Care Sales And Marketing Engineer Name Role Phone Clarissa Salmeron MD Primary Care Provider + Encounter Details Date Type Department Care Team (Late st Contact Info) Description 07/07/2018 Procedure Pass [facility] MRI at [address] [place] [phone] Social History Tobacco Use Types Packs/Day Years [...] on filedocumented in this encounter Care Teams Sales And Marketing Engineer Relationship Specialty Start Date End Date Clarissa Salmeron MD [address] [facility], [address] [place], [place] [phone] PCP - General Internal Medicine 01/06/17 04/13/19 documented as of this encounter
--- OUTSIDE RECORDS SUMMARY | 2024-04-12 15:40 | XMS_ITS | Encounter Summary ---
Author Organization [facility] Address [address] [facility] [address] [facility], [address] [place] [address] Care Team Providers Care Senior Reservations Agent Name Role Phone Clarissa Salmeron MD Primary Care Provider + Encounter Details Date Type Department Care Team (Late st Contact Info) Description 10/14/2017 Scan Document - View in Chart [facility] [address] [facility], [address] [place], [place] [phone] Clarissa Salmeron MD [address] [facility], [address] [place], [place] [phone] Social History Tobacco Use Types Packs/Day Years Used Date Smoking Tobacco: Never Sex and Gender Information Value Date Recorded Sex Assigned at Not on file Gender Identity Not on file Sexual Orientation Not on file documented as of this encounter Plan of Treatment Not on file documented as of this encounter Visit Diagnoses Not on filedocumented in this encounter Care Teams Senior Reservations Agent Relationship Specialty Start Date End Date Clarissa Salmeron MD [address] [facility], [address] [place], [place] [phone] PCP - General Internal Medicine 01/06/17 04/13/19 documented as of this encounter
--- OUTSIDE RECORDS SUMMARY | 2024-04-12 15:40 | XMS_ITS | Encounter Summary ---
Author Organization [facility] Address [address] [facility], [address] [place] [address] Care Team Providers Care Manager Workers Compensation Name Role Phone Clarissa Salmeron MD Primary Care Provider + Encounter Details Date Type Department Care Team (Late st Contact Info) Description 12/03/2018 Telephone [facility] [address] [facility], [address] [place] [address] Clarissa Salmeron MD [address] [facility], [address] [place] [address] Social History Tobacco Use Types Packs/Day Years Used Date Smoking Tobacco: Never Smokeless Tobacco: Never Alcohol Use Standard Drinks/Week Comments Yes 0 (1 standard drink = 0.6 oz pur e alcohol) Depression Answer Date Recorded PHQ-2 Score Not on file 11/12/2018 PHQ-9 Total Score 13 11/12/2018 [facility] Scale Score: Not on file 9 Sex and Gender Information Value Date Recorded Sex Assigned at Not on file Gender Identity Not on file Sexual Orientation Not on file documented as of this encounter Miscellaneous Notes * Telephone Encounter - Pamela Barrera MA - 01/25/2019 9:37 AM EDT Stress test booked for 02/24/19 at 2:00 Pm and mammogram booked for 04/30/19 at 1:00 pm. Pt is aware. * Telephone Encounter - Pamela Barrera MA - 12/29/2018 9:52 AM EDT LM for pt to call back * Telephone Encounter - Pamela Barrera MA - 12/09/2018 4:16 PM EDT Called patient and LM for call back * Telephone Encounter - Clarissa Salmeron MD - 12/03/2018 4:26 PM EDT Patients can go anywhere to get mammograms, but I cannot order the stress test at another hospital.This needs to be done here. * Telephone Encounter - Diana Lin MA - 12/03/2018 3:16 PM EDT Patient called to see if both her stress test and mammogram could be done on the same day at [facility] Please call patient documented in this encounter Plan of Treatment Not on file documented as of this encounter Visit Diagnoses Not on filedocumented in this encounter Care Teams Manager Workers Compensation Relationship Specialty Start Date End Date Clarissa Salmeron MD [address] [place] [address], [address] [place] [address] PCP - General Internal Medicine 01/06/17 04/13/19 documented as of this encounter
--- OUTSIDE RECORDS SUMMARY | 2024-04-12 15:40 | XMS_ITS | Encounter Summary ---
Author Organization [facility] Address [address] [facility], [address] [place] [address] Care Team Providers Care Resin Coater Name Role Phone Clarissa Salmeron MD Primary Care Provider + Reason for Referral * Diagnostic Imaging (Routine) - Closed Specialty Diagnoses / Procedures Referred By Carmen t Referred To Contact Diagnoses Left shoulder pain Procedures X-ray Shoulder 2+ Views Left Stiven Diego MD [address] [place] [address] Referral ID Status Reason Start Date Expiration Date Visits Re quested Visits Authorized [id number] Closed 05/12/2017 11/08/2017 1 1 Encounter Details Date Type Department Care Team (Late st Contact Info) Description 05/12/2017 Ancillary Orders [facility] Ultrasound [address] [place] [phone] Stiven Diego MD [address] [place] [address] Left shoulder pain Social History Tobacco Use Types Packs/Day Years Used Date Smoking Tobacco: Never Sex and Gender Information Value Date Recorded Sex Assigned at Not on file Gender Identity Not on file Sexual Orientation Not on file documented as of this encounter Plan of Treatment Not on file documented as of this encounter Results * X-ray Shoulder 2+ Views Left (05/12/2017 1:53 PM EDT) Anatomical Region Laterality Modality Shoulder Left Digital Radiogra phy 05/12/2017 2:05 PM EDT Impressions 05/12/2017 2:23 PM EDT No significant change since 01/11/2017. ??Soft tissue calcification most likely to represent rotator cuff calcific peritendinitis. ??No acute bony abnormality. Dictated: 05/12/2017 2:23 PM Report ID: [id number] Report signed in external system at 05/12/2017 14:23 Reported By: Peggy Tafoya M.D. (KALINA) Signed By: Peggy Tafoya M.D. (KALINA) Narrative 05/12/2017 2:23 PM EDT RESPONSIBLE GUIDANCE DIRECTOR: Peggy Tafoya M.D. EXAMINATION: XR SHOULDER 2+ [...] Note Peggy Tafoya MD - 05/12/2017 RESPONSIBLE GUIDANCE DIRECTOR: Peggy Tafoya M.D. EXAMINATION: XR SHOULDER 2+ [...] bonyabnormality. Dictated: 05/12/2017 2:23 PM Report ID: [id number] Report signed in external system at 05/12/2017 14:23 Reported By: Peggy Tafoya M.D. (KALINA) Signed By: Peggy Tafoya M.D. (KALINA) Stiven Diego MD IMG XR PROCEDURES documented in this encounter Visit Diagnoses Diagnosis Left shoulder pain Pain in joint, shoulder region Left shoulder pain Pain in joint, shoulder region documented in this encounter Care Teams Resin Coater Relationship Specialty Start Date End Date Clarissa Salmeron MD [address] [facility], [address] [place] [address] PCP - General Internal Medicine 01/06/17 04/13/19 documented as of this encounter
--- OUTSIDE RECORDS SUMMARY | 2024-04-12 15:40 | XMS_ITS | Encounter Summary ---
Author Organization [facility] Address [address] [facility] [address] [place] [address] Care Team Providers Care Dance Critic Name Role Phone Clarisas Salmeron MD Primary Care Provider + Encounter Details Date Type Department Care Team (Late st Contact Info) Description 06/23/2017 Immunization [facility] [address] [place] [phone] Yudy Wadsworth, ROXY [address] [place] [address] Need for immunization against influenza Social History Tobacco Use Types Packs/Day Years Used Date Smoking Tobacco: Never Sex and Gender Information Value Date Recorded Sex Assigned at Not on file Gender Identity Not on file Sexual Orientation Not on file documented as of this encounter Plan of Treatment Not on file documented as of this encounter Visit Diagnoses Diagnosis Need for immunization against influenza Need for prophylactic vaccination and inoculation against influenza documented in this encounter Care Teams Dance Critic Relationship Specialty Start Date End Date Clarissa Salmeron MD [address] [facility], [address] [place] [address] PCP - General Internal Medicine 01/06/17 04/13/19 documented as of this encounter
--- OUTSIDE RECORDS SUMMARY | 2024-04-12 15:40 | XMS_ITS | Encounter Summary ---
Author Organization [facility] Address [address], [address] [place] [address] Care Team Providers Care Claims Associate Name Role Phone Clarissa Salmeron MD Primary Care Provider + Reason for Referral * Diagnostic Imaging (Routine) - Closed Specialty Diagnoses / Procedures Referred By Carmen benton Referred To Contact Radiology Diagnoses Breast cancer screening Procedures MAMMOGRAPHY SCREENING MAMMOGRAM Clarissa Salmeron MD [address], [address] [place] [address] Referral ID Status Reason Start Date Expiration Date Visits Re quested Visits Authorized [id number] Closed 11/14/2018 11/14/2019 1 1 * Diagnostic Imaging (Routine) - Closed Specialty Diagnoses / Procedures Referred By Carmen benton Referred To Contact Diagnoses Chest pain, unspecified type Procedures Exercise stress with echocardiography TRANSTHORACIC ECHO (TTE) COMPLETE NO DOPPLER NO COLOR DOBUTAMINE STRESS WITH ECHOCARDIOGRAPHY ECHOCARDIOGRAM EXERCISE STRESS TEST Clraissa Salmeron MD [address], [address] [place] [id number] Referral ID Status Reason Start Date Expiration Date Visits Re quested Visits Authorized [id number] Closed 11/12/2018 11/12/2019 1 1 Encounter Details Date Type Department Care Team (Latest Contact Info) Description 11/12/2018 1:00 PM EST Office Visit [facility] [address], [address] [place] [address] Clarissa Salmeron MD [address], [address] [place] [address] Routine physical examination (Primary Dx); Chest pain, unspecified type; Chronic nonintractable headache, unspecified headache type; Left arm numbness; Low blood sugar; History of hypertension; History of gestational diabetes; Breast cancer screening; Depression screen Social History Tobacco Use Types Packs/Day Years Used Date Smoking Tobacco: Never Smokeless Tobacco: Never Alcohol Use Standard Drinks/Week Comments Yes 0 (1 standard drink = 0.6 oz pur e alcohol) Depression Answer Date Recorded PHQ-2 Score Not on file 11/12/2018 PHQ-9 Total Score 13 11/12/2018 [place] Scale Score: Not on file 9 Sex [...] 11/12/2018 1:09 PM ES T Respiratory Rate - - Oxygen Saturation 98% 11/12/2018 1:09 PM EST Inhaled Oxygen Concentration - - Weight 50.8 kg (112 lb) 11/12/2018 1:09 PM EST Height - - Body Mass Index 21.87 07/06/2018 9:54 AM EDT documented in this encounter Progress Notes * Clarissa Salmeron MD - 11/12/2018 1:00 PM EST Subjective Patient ID: Nena Ingram is a 58 y.o. female. HPI She is here for a physical. She continues to experience numbness and shooting pain in her left arm and leg. She continues to note chest pain. This occurs a few times per week and is not exertional. No SOB ordizziness noted with the pain. She has had multiple stress tests ordered for this, but has not keptthese appointments. She has a baseline abnormal EKG with TWI. She has been experiencing throbbing frontal headaches about 2-3 times per week. No visual changes. This is associated with stress. She notes some sensitivity to light. These have been present for years. No nausea or vomiting. She states that she has noted episodes of lower blood sugar (not documented via glucometer). She would note shakiness, blurred vision, hungry, and sweating. This would be relieved with eating food. This occurs when she is fasting. We have discussed this in prior appointments. She has been monitoring her BPs, which have been high lately. SBP has been in the 150s. The following portions of the patient's history were reviewed and updated as appropriate: allergies, current medications, past medical history, past surgical history, past family history, past socialhistory and problem list. Past Medical History: Diagnosis Date ??? H/O colonoscopy 05/30/2014, Dr. Hoover, 2 polyps (TAs), f/u 5 years ??? Psoriasis No Known Allergies Current Outpatient Medications: ??? aspirin 81 mg EC tablet, Take 81 mg by mouth daily., Disp: , Rfl: ??? b complex vitamins tablet, Take 1 tablet by mouth daily. Vitamin B-complex , Sig: as directed once a day, Disp: , Rfl: ??? calcium carbonate-vitamin D3 (OYSTER SHELL CALCIUM-VIT D3) 500 mg(1,250mg) - 200 unit per tablet, Take 1 tablet by mouth 2 (two) times a day with meals., Disp: 60 tablet, Rfl: 11 ??? cranberry 405 mg capsule, Take by mouth., Disp: , Rfl: ??? ibuprofen (ADVIL,MOTRIN) 600 mg tablet, Take 600 mg by mouth every 8 (eight) hours as needed for moderate pain (4-6)., Disp: , Rfl: ??? MAGNESIUM CHLORIDE ORAL, Take by mouth., Disp: , Rfl: ??? omega-3 fatty acids-fish oil (FISH OIL) 300-1,000 mg capsule, Take 2 g by mouth daily. Fish [id number] mg capsule, Si cap(s) orally once a day, Disp: , Rfl: ??? UNABLE TO FIND, Med Name: tumeric, Disp: , Rfl: Review of Systems Constitutional: Negative for unexpected weight change. HENT: Negative for hearing loss and trouble swallowing. Eyes: Negative for visual disturbance. Respiratory: Negative for cough, shortness of breath and wheezing. Cardiovascular: Negative for chest pain, palpitations and leg swelling. Gastrointestinal: Negative for abdominal pain, blood in stool, constipation, diarrhea, nausea and vomiting. Genitourinary: Negative for difficulty urinating, vaginal bleeding and vaginal discharge. Musculoskeletal: Positive for myalgias (left arm pain). Negative for arthralgias. Skin: Negative for rash. Neurological: Positive for headaches. Negative for dizziness. Psychiatric/Behavioral: Negative for dysphoric mood. The patient is not nervous/anxious. Objective Physical Exam Constitutional: She is oriented to person, place, and time. She does not appear ill. No distress. HENT: Head: Normocephalic and atraumatic. Right Ear: Tympanic membrane, external ear and ear canal normal. Left Ear: Tympanic membrane, external ear and ear canal normal. Eyes: Pupils are equal, round, and reactive to light. Conjunctivae and EOM are normal. Neck: Trachea normal and full passive range of motion without pain. No thyroid mass and no thyromegaly present. Cardiovascular: Normal rate, regular rhythm, S1 normal, S2 normal and normal pulses. Exam reveals no gallop and no friction rub. No murmur heard. Pulmonary/Chest: Effort normal and breath sounds normal. She has no wheezes. She has no rhonchi. She has no rales. Right breast exhibits no inverted nipple, no mass, no nipple discharge, no skin change and no tenderness. Left breast exhibits no inverted nipple, no mass, no nipple discharge, no skinchange and no tenderness. Breasts are symmetrical. Abdominal: Soft. Bowel sounds are normal. She exhibits no distension and no abdominal bruit. There is no hepatosplenomegaly. There is no tenderness. Genitourinary: Genitourinary Comments: Deferred per patient preference. Musculoskeletal: Normal range of motion. Lymphadenopathy: She has no cervical adenopathy. She has no axillary adenopathy. Neurological: She is alert and oriented to person, place, and time. She has normal strength. No sensory deficit. Skin: Skin is warm and dry. No rash noted. Psychiatric: She has a normal mood and affect. Assessment/Plan Diagnoses and all orders for this visit: Routine physical examination - Basic metabolic panel - CBC with Auto Differential - Hepatic function panel - Lipid panel - TSH W/Reflex She was encouraged to eat a healthy diet and exercise regularly. She is UTD with her pap smear and immunizations. She is due for a colonoscopy and was given the gastroenterology info to schedule an appointment. She declined Hep C screening today. Chest pain, unspecified type - Exercise stress with echocardiography; Future - EKG She has been experiencing chest pain, which is likely not cardiac in nature, but she has not completed the stress tests that have been ordered in the past. She has stable negative precordial T waves.She was encouraged to keep the appointment for the stress test. Chronic nonintractable headache, unspecified headache type - amitriptyline (ELAVIL) 10 mg tablet; Take 1 tablet (10 mg total) by mouth nightly. We have discussed this headache in the past, but I believe that it have been more than 2 years. Herprior records (older than 2 years ago) are not available at this very moment, but I believe she wasgiven amitriptyline for headache prevention in the past. Will restart this and she was advised to contact me (either by office visit, phone call or portal message) in 1 month. Left arm numbness She is continuing to note left arm numbness, pain, as well as left leg symptoms. Her imaging does not support any particular abnormalities. I wonder if this could be complex regional pain syndrome. She was referred to neurology again today, and was advised to make an appointment. Low blood sugar She describes symptoms of hypoglycemia, but we do not have documented blood sugars to make that diagnosis. We have discussed this in the past, and I believe at that time we did an extensive blood workup. This only happens when she is fasting. She was encouraged to eat smaller meals throughout the day, and to prevent extended periods of fasting. History of hypertension Her blood pressure is at goal today. She is currently not on an antihypertensive, but has been in the past. History of gestational diabetes - Hemoglobin A1c - POCT glucose She has a history of gestational diabetes. Will check an A1c today. Breast cancer screening We will schedule next mammogram. Depression screen Negative depression screen. documented in this encounter Plan of Treatment Scheduled Orders Name Type Priority Associated Diagnoses Order Schedule Exercise stress with echocardiography Echocardiography Routine Chest pain, unspecified type Expected: 11/14/2018, Expires: 11/12/2019 MAMMOGRAPHY SCREENING MAMMOGRAM Imaging Routine Breast cancer screening Expected: 11/14/2018, Expires: 01/12/2020 documented as of this encounter Procedures Procedure Name Priority Date/Time Associated Diagnosis Comments CBC WITH AUTO DIFFERENTIAL Routine 11/12/2018 2:15 PM EST Routine physical examination POCT GLUCOSE Routine 11/12/2018 2:15 PM EST History of gestational diabetes TSH WITH REFLEX Routine 11/12/2018 2:15 PM EST Routine physical examination HEMOGLOBIN A1C Routine 11/12/2018 2:15 PM EST History of gestational diabetes HC DIRECT BILIRUBIN Routine 11/12/2018 2 :15 PM EST Routine physical examination LIPID PANEL Routine 11/12/2018 2:15 PM EST Routine physical examination BASIC METABOLIC PANEL Routine 11/12/2018 2:15 PM EST Routine physical examination EKG Routine 11/12/2018 Chest pain, unspecified type documented in this encounter Results * POCT glucose (11/12/2018 2:15 PM EST) Glucose Blood, POC 86 Blood 11/12/2018 2:15 PM EST Clarissa Salmeron MD POINT OF CARE TE ST ORDERABLES * (ABNORMAL) Hemoglobin A1c (11/12/2018 2:15 PM EST) HBA1C 5.9(H) 4.1 - 5.7 % 11/12/2018 8:25 PM EST [facility] Comment: Prediabetic range: 5.7 - 6.4% Diabetic range: > or = 6.5% Blood Venous blood / Unknown Venipuncture / Unknown 11/12/2018 2:15 PM EST 11/12/2018 2:15 PM EST Clarissa Salmeron MD LAB BLOOD ORDERA BLES Performing Organization Address City/[facility]/ZIP Co de Phone Number [facility] [address] [place] [address], * TSH W/Reflex (11/12/2018 2:15 PM EST) Thyroid Stimulating Hormone 1.610 0.465 - 4.68 uIU/mL 11/12/2018 6:38 PM EST [facility] Comment:Note: Biotin supplem ents may cause bias with this assay result. Repeat testing after stopping supplements for at least 48 hours is suggested, if results do not fit the clinical picture. Blood Venous blood / Unknown Venipuncture / Unknown 11/12/2018 2:15 PM EST 11/12/2018 2:15 PM EST Clarissa Salmeron MD LAB BLOOD ORDERA BLES Performing Organization Address [facility] Co de Phone Number [facility] [address] [place] [address], [place] [phone] * (ABNORMAL) Lipid panel (11/12/2018 2:15 PM EST) CHOLESTEROL 250(H) <=199 mg/dL 11/12/2018 6:08 PM EST [facility] TRIGLYCERIDES 137 <150 mg/dL 11/12/2018 6:08 PM EST [facility] HDL 94 >=50 mg/dL 11/12/2018 6:08 PM EST [facility] RISK FACTOR 2.7 <4.4 11/12/2018 6:08 PM EST [facility] CHOLESTEROL LDL 129(H) <100 mg/dL 9 6:08 PM EST [facility] Blood Venous blood / Unknown Venipuncture / Unknown 11/12/2018 2:15 PM EST 11/12/2018 2:15 PM EST Clarissa Salmeron MD LAB BLOOD ORDERA BLES Performing Organization Address City/[facility]/ZIP Co de Phone Number [facility] [address] [place] [address], [place] [phone] * (ABNORMAL) Hepatic function panel (11/12/2018 2:15 PM EST) Pathologist [facility] Protein, Total 8.1 6.3 - 8.2 g/dL 11/12/2018 6:08 PM [facility] ALBUMIN 4.6 3.5 - 5.0 g/dL 11/12/2018 6:08 PM [facility] Bilirubin Total 0.1(L) 0.2 - 1.3 mg/dL 11/12/2018 6:08 PM [facility] Comment: Specimens exposed to light for more than 8 hours may not yield accurate results for bilirubin (Total and Direct). These tests should be redrawn and analysis completed on the redraw within 8 hours. BILIRUBIN DIRECT 0.0 0.0 - 0.4 mg/dL 11/12/2018 6:08 PM [facility] AST (SGOT) 30 15 - 46 U/L 11/12/2018 6:08 PM [facility] ALT 36 13 - 69 U/L 11/12/2018 6:08 PM [facility] ALKALINE PHOSPHATASE 62 38 - 126 U/L 11/12/2018 6:08 PM [facility] Blood Venous blood / Unknown Venipuncture / Unknown 11/12/2018 2:15 PM EST 11/12/2018 2:15 PM EST Clarissa Salmeron MD LAB BLOOD ORDERA BLES [facility] [address] [place] [address], * CBC with Auto Differential (11/12/2018 2:15 PM EST) Pathologist [facility] WBC 7.55 4.50 to 11.00 x 10*3u/L 10*3/uL 11/12/2018 6:04 PM [facility] nRBC 0 0 - 0 /100 WBCs 11/12/2018 6:04 PM EST [facility] RBC 4.63 3.90 to 5.03 x 10*6/uL 10*6/uL 11/12/2018 6:04 PM [facility] HGB 13.5 12.0 to 16.0 g/dL g/dL 11/12/2018 6:04 PM [facility] HCT 41.2 36.0% to 46.0% % 11/12/2018 6:04 PM [facility] MCV 89.0 80.0 to 100.0 fL fL 11/12/2018 6:04 PM [facility] MCH 29.2 26.0 - 33.0 pg 11/12/2018 6:04 PM [facility] MCHC 32.8 31.0 to 37.0 g/dL g/dL 11/12/2018 6:04 PM [facility] PLT 305 150 to 350 x 10*3u/l 10*3u/L 11/12/2018 6:04 PM [facility] RDW-CV 12.6 11.5 - 14.5 % 11/12/2018 6:04 PM [facility] Segmented % 61.1 30.0 - 85.0 % 11/12/2018 6:04 PM [facility] ABS Neutrophil 4.61 1.5 - 6.5 10*3/uL 11/12/2018 6:04 PM [facility] Lymphocytes % 29.5 15.0 - 50.0 % 11/12/2018 6:04 PM [facility] ABS Lymphocyte 2.23 1.0 - 3.7 10*3u/L 11/12/2018 6:04 PM [facility] Monocytes % 7.7 0.0 - 10.0 % 11/12/2018 6:04 PM [facility] Eosinophils % 0.8 0.0 - 5.0 % 11/12/2018 6:04 PM [facility] Basophil % 0.4 0.0 - 2.0 % 11/12/2018 6:04 PM [facility] IMM GRAN 0.5 0.0 - 1.0 % 11/12/2018 6:04 PM [facility] Blood Venous blood / Unknown Venipuncture / Unknown 11/12/2018 2:15 PM EST 11/12/2018 2:15 PM EST Clarissa Salmeron MD LAB BLOOD ORDERA BLES Performing Organization Address City/[facility]/ZIP Co de Phone Number [facility] [address] [place] [address], * (ABNORMAL) Basic metabolic panel (11/12/2018 2:15 PM EST) Sodium 141 137 - 145 mmol/L 11/12/2018 6:08 PM EST [facility] Potassium 3.9 3.5 - 5.1 mmol/L 11/12/2018 6:08 PM [facility] CHLORIDE 104 98 - 107 mmol/L 11/12/2018 6:08 PM [facility] CARBON DIOXIDE, TOTAL 30.0 22.0 - 30.0 mmol/L 11/12/2018 6:08 PM [facility] ANION GAP 7.0 6 - 14 11/12/2018 6:08 PM [facility] GLUCOSE 95 70 - 99 mg/dL 11/12/2018 6:08 PM [facility] BUN 19(H) 7 - 17 mg/dL 11/12/2018 6:08 PM [facility] CREATININE 0.6 0.5 - 1.0 mg/dL 11/12/2018 6:08 PM [facility] GFR >60 11/12/2018 6:08 PM [facility] Comment: eGFR Reference Range: ? > 60 mL/min/1.73 Sq meter In Americans the eGFR should be multiplied by 1.212. CALCIUM 9.8 8.3 - 10.3 mg/dL 11/12/2018 6:08 PM [facility] Blood Venous blood / Unknown Venipuncture / Unknown 11/12/2018 2:15 PM EST 11/12/2018 2:15 PM EST Clarissa Salmeron MD LAB BLOOD ORDERA BLES [facility] [address] [place] [address], * EKG (11/12/2018) Clarissa Salmeron MD ECG ORDERABLES documented in this encounter Visit Diagnoses Diagnosis Routine physical examination- Primary Routine general medical examination at a health care facility Chest pain, unspecified type Chronic nonintractable headache, unspecified headache type Left arm numbness Disturbance of skin sensation Low blood sugar Hypoglycemia, unspecified History of hypertension Personal history of other diseases of circulatory system History of gestational diabetes Personal history of other genital system and obstetric disorders Depression screen Screening for depression documented in this encounter Care Teams Claims Associate Relationship Specialty Start Date End Date Clarissa Salmeron MD [address], [address] [place] [address] PCP - General Internal Medicine 01/06/17 04/13/19 documented as of this encounter
--- OUTSIDE RECORDS SUMMARY | 2024-04-12 15:40 | XMS_ITS | Encounter Summary ---
Author Organization [facility] Address [address], [address] [place] [address] Care Team Providers Care Paper Reclaiming Machine Operator Name Role Phone Clarissa Salmeron MD Primary Care Provider + Encounter Details Date Type Department Care Team (Late st Contact Info) Description 10/20/2017 Billing Encounter [facility] [address] [place] [address] Martha George MD [address], [address] [place] [address] Social History Tobacco Use Types Packs/Day Years Used Date Smoking Tobacco: Never Sex and Gender Information Value Date Recorded Sex Assigned at Not on file Gender Identity Not on file Sexual Orientation Not on file documented as of this encounter Plan of Treatment Not on file documented as of this encounter Visit Diagnoses Not on filedocumented in this encounter Care Teams Paper Reclaiming Machine Operator Relationship Specialty Start Date End Date Clarissa Salmeron MD [address], [address] [place] [address] PCP - General Internal Medicine 01/06/17 04/13/19 documented as of this encounter
--- OUTSIDE RECORDS SUMMARY | 2024-04-12 15:40 | XMS_ITS | Encounter Summary ---
Author Organization [facility] Address [address] [facility] [address] [facility], [address] [place] [address] Care Team Providers Care Web Portal Developer Name Role Phone Clarissa Salmeron MD Primary Care Provider + Encounter Details Date Type Department Care Team (Late st Contact Info) Description 07/06/2018 Scan Document - View in Chart [facility] [address], [address] [place], [place] [phone] Clarissa Salmeron MD [address], [address] [place], [place] [phone] Social History Tobacco Use Types Packs/Day Years [...] on filedocumented in this encounter Care Teams Web Portal Developer Relationship Specialty Start Date End Date Clarissa Salmeron MD [address], [address] [place] [address] PCP - General Internal Medicine 01/06/17 04/13/19 documented as of this encounter
--- OUTSIDE RECORDS SUMMARY | 2024-04-12 15:40 | XMS_ITS | Encounter Summary ---
Author Organization [facility] Address [address] [facility], [address] [place] [address] Care Team Providers Care Knowledge Management Consultant Name Role Phone Clarissa Salmeron MD Primary Care Provider + Encounter Details Date Type Department Care Team (Late st Contact Info) Description 10/20/2017 Orders Only [facility] [address], [address] [place] [address] Martha George MD [address], [address] [place], [place] [phone] Dysuria (Primary Dx) Social History Tobacco Use Types Packs/Day Years Used Date Smoking Tobacco: Never Sex and Gender Information Value Date Recorded Sex Assigned at Not on file Gender Identity Not on file Sexual Orientation Not on file documented as of this encounter Miscellaneous Notes * Addendum Note - Martha George MD - 10/21/2017 9:40 AM ESTAddended by: MARTHA GEORGE on: 10/21/2017 09:40 AM Modules accepted: Orders documented in this encounter Plan of Treatment Not on file documented as of this encounter Procedures Procedure Name Priority Date/Time Associated Diagnosis Comments HC AUTOM URINE DIP W MICRO Routine 10/20/2017 2:14 PM EST Dysuria URINE CULTURE Routine 10/20/2017 2:14 PM EST Dysuria documented in this encounter Results * Urine culture (10/20/2017 2:14 PM EST) Urine Culture >100,000 cfu/ml Staphylococcus saprophyticus 10/22/2017 7:58 AM EST [facility] Urine Urine specimen collection, clean catch / Unknown Non-blood Collection / Unknown 10/20/2017 2:14 PM EST 10/20/2017 5:04 PM EST [facility] - 10/22/2017 7:58 AM EST Routine testing of urine isolates of S. saphrophyticus is not advised, because infections respond to concentrations achieved in urine of antimicrobial agents commonly used to treat acute, uncomplicated urinary tract infections (eg., nitrofurantoin, trimethoprim, trimethoprim sulfamethoxazole, or a fluoroquinolone.) Martha George MD LAB MICROBIOLOGY - GENERAL ORDERABLES [facility] [address] [place] [address], * (ABNORMAL) Urinalysis with microscopic (10/20/2017 2:14 PM EST) Color Yellow 10/20/2017 7:51 PM [facility] TURBIDITY Cloudy(A) CLEAR 10/20/2017 7:51 PM [facility] SG 1.019 1.002 - 1.030 10/20/2017 7:51 PM [facility] pH, Urine 8.0 5.0 - 8.0 10/20/2017 7:51 PM [facility] Albumin Negative Negative 10/20/2017 7:51 PM [facility] Glucose Negative Negative 10/20/2017 7:51 PM [facility] Ketones Negative Negative 10/20/2017 7:51 PM [facility] Bile Negative Negative 10/20/2017 7:51 PM [facility] Blood Negative Negative 10/20/2017 7:51 PM [facility] WBC esterase 3+(A) Negative 10/20/2017 7:51 PM [facility] Nitrite Negative Negative 10/20/2017 7:51 PM EST [facility] WBC >100(A) 0 - 5 /HPF LAB URINALYSIS - AUTOMATED METHOD 10/20/2017 7:51 PM EST [facility] RBC 5-10(A) 0 - 5 /HPF LAB URINALYSIS - AUTOMATED METHOD 10/20/2017 7:51 PM EST [facility] EPITH CELLS 5-10(A) 0 - 5 /HPF LAB URINALYSIS - AUTOMATED METHOD 10/20/2017 7:51 PM EST [facility] WBC Clumps Few(A) None Seen /HPF LAB URINALYSIS - AUTOMATED METHOD 10/20/2017 7:51 PM EST [facility] Triple Phosphate Crystals Few(A) None Seen /HPF LAB URINALYSIS - AUTOMATED METHOD 10/20/2017 7:51 PM EST [facility] Urine Urine specimen collection, clean catch / Unknown Non-blood Collection / Unknown 10/20/2017 2:14 PM EST 10/20/2017 5:04 PM EST Martha George MD LAB URINE ORDERABL ES [facility] [address] [place] [address], documented in this encounter Visit Diagnoses Diagnosis Dysuria- Primary documented in this encounter Care Teams Knowledge Management Consultant Relationship Specialty Start Date End Date Clarissa Salmeron MD [address], [address] [place] [address] PCP - General Internal Medicine 01/06/17 04/13/19 documented as of this encounter
--- OUTSIDE RECORDS SUMMARY | 2024-04-12 15:40 | XMS_ITS | Encounter Summary ---
Author Organization [facility] Address [address] [facility], [address] [place] [address] Care Team Providers Care Grain Blender Name Role Phone Clarissa Salmeron MD Primary Care Provider + Reason for Referral * Diagnostic Imaging (Routine) - Closed Specialty Diagnoses / Procedures Referred By Contac t Referred To Contact Diagnoses Follow up Procedures X-ray Shoulder 2+ Views Left Stiven Diego MD [address] [place] [address] Referral ID Status Reason Start Date Expiration Date Visits Re quested Visits Authorized [id number] Closed 05/06/2018 05/06/2019 1 1 Encounter Details Date Type Department Care Team (Late st Contact Info) Description 05/06/2018 Ancillary Orders [facility] X-ray at Medical Office [address], [address] [facility], [address] [place] [address] Stiven Diego MD [address] [place] [address] Follow up Social History Tobacco Use Types Packs/Day Years Used Date Smoking Tobacco: Never Sex and Gender Information Value Date Recorded Sex Assigned at Not on file Gender Identity Not on file Sexual Orientation Not on file documented as of this encounter Plan of Treatment Not on file documented as of this encounter Results * X-ray Shoulder 2+ Views Left (05/06/2018 2:23 PM EDT) Anatomical Region Laterality Modality Shoulder Left Digital Radiogra phy 05/06/2018 2:10 PM EDT Impressions 05/06/2018 2:30 PM EDT Soft tissue calcification as before. ??No acute left shoulder abnormality detected Dictated: 05/06/2018 2:30 PM Report ID: [id number] Report signed in external system at 05/06/2018 14:30 Reported By: Jim Aguilar M.D. (MAVERICK) Signed By: Jim Aguilar M.D. (MAVERICK) Narrative 05/06/2018 2:30 PM EDT RESPONSIBLE GED INSTRUCTOR: Jim Aguilar M.D. EXAMINATION: XR SHOULDER 2+ VW LEFT CLINICAL INDICATION: Left shoulder pain follow-up TECHNIQUE: Three views of the left shoulder. COMPARISON: 05/12/2017 and 01/11/2017 FINDINGS: Alignment and mineralization are unchanged and normal. ??There is no significant osteoarthritis at the AC joint or glenohumeral joint. ??Previously noted small region of soft tissue calcification is not as well seen but there is curvilinear calcification adjacent to the superolateral humerus on the external rotation view which may represent calcific tendinopathy/peritendinitis. Procedure Note Jim Aguilar MD - 05/06/2018 RESPONSIBLE GED INSTRUCTOR: Jim Aguilar M.D. EXAMINATION: XR SHOULDER 2+ VW LEFT CLINICAL INDICATION: Left shoulder pain follow-up TECHNIQUE: Three views of the left shoulder. COMPARISON: 05/12/2017 and 01/11/2017 FINDINGS: Alignment and mineralization are unchanged and normal. There is nosignificant osteoarthritis at the AC joint or glenohumeral joint.Previously noted small region of soft tissue calcification is not as wellseen but there is curvilinear calcification adjacent to the superolateralhumerus on the external rotation view which may represent calcifictendinopathy/peritendinitis. IMPRESSION: Soft tissue calcification as before. No acute left shoulder abnormalitydetected Dictated: 05/06/2018 2:30 PM Report ID: [id number] Report signed in external system at 05/06/2018 14:30 Reported By: Jim Aguilar M.D. (MAVERICK) Signed By: Jim Aguilar M.D. (MAVERICK) Stiven Diego MD IMG XR PROCEDURES documented in this encounter Visit Diagnoses Diagnosis Follow up Follow up documented in this encounter Care Teams Grain Blender Relationship Specialty Start Date End Date Clarissa Salmeron MD [address] [facility], [address] [place] [address] PCP - General Internal Medicine 01/06/17 04/13/19 documented as of this encounter
--- OUTSIDE RECORDS SUMMARY | 2024-04-12 15:40 | XMS_ITS | Encounter Summary ---
Author Organization [facility] Address [address] [facility], [address] [place] [address] Care Team Providers Care Supervisor Metal Furniture Assembly Name Role Phone Clarissa Salmeron MD Primary Care Provider + Encounter Details Date Type Department Care Team (Late st Contact Info) Description 11/15/2018 Telephone [facility] [address] [facility], [address] [place] [address] Clarissa Salmeron MD [address] [facility], [address] [place] [address] Social History Tobacco Use Types Packs/Day Years Used Date Smoking Tobacco: Never Smokeless Tobacco: Never Alcohol Use Standard Drinks/Week Comments Yes 0 (1 standard drink = 0.6 oz pur e alcohol) Depression Answer Date Recorded PHQ-2 Score Not on file 11/12/2018 PHQ-9 Total Score 13 11/12/2018 [place] Scale Score: Not on file 9 Sex and Gender Information Value Date Recorded Sex Assigned at Not on file Gender Identity Not on file Sexual Orientation Not on file documented as of this encounter Miscellaneous Notes * Telephone Encounter - Pamela Barrera MA - 11/24/2018 2:04 PM EST Spoke to Dr. Salmeron we can not order this there she will need to come here to have this done. LM for pt to call back * Telephone Encounter - Lily Riggs MA - 11/15/2018 11:23 AM EST Patient is requesting that you schedule her stress test close to [place] for easier travel. documented in this encounter Plan of Treatment Not on file documented as of this encounter Visit Diagnoses Not on filedocumented in this encounter Care Teams Supervisor Metal Furniture Assembly Relationship Specialty Start Date End Date Clarissa Salmeron MD [address] [place] [address], [address] [place] [address] PCP - General Internal Medicine 01/06/17 04/13/19 documented as of this encounter
--- OUTSIDE RECORDS SUMMARY | 2024-04-12 15:40 | XMS_ITS | Encounter Summary ---
Author Organization [facility] Address [address] [facility] [address] [facility], [address] [place] [address] Care Team Providers Care Home Performance Consultant Name Role Phone Clarissa Salmeron MD Primary Care Provider + Encounter Details Date Type Department Care Team (Late st Contact Info) Description 06/11/2017 Scan Document - View in Chart [facility] [address] [facility], [address] [place], [place] [phone] Clarissa Salmeron MD [address] [facility], [address] [place], [place] [phone] Social History Tobacco Use Types Packs/Day Years Used Date Smoking Tobacco: Never Sex and Gender Information Value Date Recorded Sex Assigned at Not on file Gender Identity Not on file Sexual Orientation Not on file documented as of this encounter Plan of Treatment Not on file documented as of this encounter Visit Diagnoses Not on filedocumented in this encounter Care Teams Home Performance Consultant Relationship Specialty Start Date End Date Clarissa Salmeron MD [address] [facility], [address] [place], [place] [phone] PCP - General Internal Medicine 01/06/17 04/13/19 documented as of this encounter
--- OUTSIDE RECORDS SUMMARY | 2024-04-12 15:40 | XMS_ITS | Encounter Summary ---
Author Organization [facility] Address [address] [facility], [address] [place] [address] Care Team Providers Care Airline Operations Agent Name Role Phone Clarissa Salmeron MD Primary Care Provider + Encounter Details Date Type Department Care Team (Late st Contact Info) Description 07/28/2018 Telephone [facility] [address] [facility], [address] [place], [place] [phone] Clarissa Salmeron MD [address] [facility], [address] [place], [place] [phone] Social History Tobacco Use Types Packs/Day Years Used Date Smoking Tobacco: Never Smokeless Tobacco: Never Sex and Gender Information Value Date Recorded Sex Assigned at Not on file Gender Identity Not on file Sexual Orientation Not on file documented as of this encounter Miscellaneous Notes * Telephone Encounter - Clarissa Salmeron MD - 07/29/2018 10:29 AM EST See prior encounter * Telephone Encounter - Lynn Parra MA - 07/28/2018 4:41 PM EST Patient informed. Also wanted you to know she sent you a form that needs to be filled out. * Telephone Encounter - Clarissa Salmeron MD - 07/28/2018 3:53 PM EST Will you please let her know I will call her back tomorrow? THank you * Telephone Encounter - Lynn Parra MA - 07/28/2018 11:09 AM EST Patient called again, her mailbox is now empty. Please call her back. documented in this encounter Plan of Treatment Not on file documented as of this encounter Visit Diagnoses Not on filedocumented in this encounter Care Teams Airline Operations Agent Relationship Specialty Start Date End Date Clarissa Salmeron MD [address] [facility], [address] [place] [address] PCP - General Internal Medicine 01/06/17 04/13/19 documented as of this encounter
--- OUTSIDE RECORDS SUMMARY | 2024-04-12 15:40 | XMS_ITS | Encounter Summary ---
Author Organization [facility] Address [address] [facility], [address] [place] [address] Care Team Providers Care Wool Sorter Name Role Phone Clarissa Salmeron MD Primary Care Provider + Reason for Referral * Diagnostic Imaging (Routine) - Closed Specialty Diagnoses / Procedures Referred By Contac t Referred To Contact Radiology Diagnoses Left leg numbness Procedures MRI Lumbar Spine without Contrast Clarissa Salmeron MD [address] [facility], [address] [place] [address] Referral ID Status Reason Start Date Expiration Date Visits Re quested Visits Authorized [id number] Closed 07/07/2018 09/05/2018 1 1 Encounter Details Date Type Department Care Team ([facility] st Contact Info) Description 07/06/2018 9:00 AM EDT Office Visit [facility] [address] [facility], [address] [place] [address] Clarissa Salmeron MD [address] [facility], [address] [place], [place] [phone] Heart sounds, abnormal (Primary Dx); Chest pain, unspecified type; Left arm numbness; Left leg numbness Social History Tobacco Use Types Packs/Day Years Used Date Smoking Tobacco: Never Smokeless Tobacco: Never Sex and Gender Information Value Date Recorded Sex Assigned at Not on file Gender Identity Not on file Sexual Orientation Not on file documented as of this encounter Last Filed Vital Signs Vital Sign Reading Time Taken Comments Blood Pressure 138/88 07/06/2018 9:54 AM EDT Pulse 104 07/06/2018 9:54 AM EDT Temperature - - Respiratory Rate 16 07/06/2018 9:54 AM EDT Oxygen Saturation 98% 07/06/2018 9:54 AM EDT Inhaled Oxygen Concentration - - Weight 49.9 kg (110 lb) 07/06/2018 9:54 AM EDT Height 152.4 cm (5') 07/06/2018 9:54 AM EDT Body Mass Index 21.48 07/06/2018 9:54 AM EDT documented in this encounter Progress Notes * Clarissa Salmeron MD - 07/06/2018 9:00 AM EDT Subjective Patient ID: Nena Ingram is a 58 y.o. female. HPI She is here for a short visit. She states that she hears her heart dripping, like a water dripping sound when lying on her left side. She does not feel that this is coming from her ear. No SOB, no chest pain, no palpitations. She was evaluated for chest pain in April by Ana Rosa, but did not have the stress echo. She tells me that she has continued to note left arm pain and numbness. She has had an injection and physical therapy without benefit. She was diagnosed with rotator cuff tear (per patient as I do not have access to the MRI report) and was advised to have a surgical repair. She tells me that she is also experiencing left leg numbness over the last month. This is almost constant. No pain or back pain. No leg weakness. The following portions of the patient's history were reviewed and updated as appropriate: allergies, current medications, past medical history and problem list. Current Outpatient Prescriptions: ??? b complex vitamins tablet, Take 1 tablet by mouth daily. Vitamin B-complex , Sig: as directed once a day, Disp: , Rfl: ??? biotin 1 mg tablet, Take 1,000 mcg by mouth daily. biotin 1000 mcg tablet, Si tab(s) orallyonce a day, Disp: , Rfl: ??? calcium carbonate-vitamin D3 (OYSTER SHELL CALCIUM-VIT D3) 500 mg(1,250mg) - 200 unit per tablet, Take 1 tablet by mouth 2 (two) times a day with meals., Disp: 60 tablet, Rfl: 11 ??? cholecalciferol, vitamin D3, (cholecalciferol) 400 unit tablet, Take 400 Units by mouth daily. Vitamin D3 400 intl units tablet, Si tab(s) orally once a day, Disp: , Rfl: ??? ibuprofen (ADVIL,MOTRIN) 600 mg tablet, Take 600 mg by mouth every 8 (eight) hours as needed for moderate pain (4-6)., Disp: , Rfl: ??? MAGNESIUM CHLORIDE ORAL, Take by mouth., Disp: , Rfl: ??? omega-3 fatty acids-fish oil (FISH OIL) 300-1,000 mg capsule, Take 2 g by mouth daily. Fish Cvi2057 mg capsule, Si cap(s) orally once a day, Disp: , Rfl: ??? UNABLE TO FIND, Physical Therapy , Sig: Left arm numbness evaluate and treat. Start Date: 10/10/2016, Disp: , Rfl: ??? UNABLE TO FIND, Med Name: tumeric, Disp: , Rfl: Review of Systems See HPI Objective Physical Exam Constitutional: No distress. Eyes: EOM are normal. Pupils are equal, round, and reactive to light. Cardiovascular: Normal rate, regular rhythm, S1 normal, S2 normal and normal heart sounds. Exam reveals no gallop and no friction rub. No murmur heard. Pulmonary/Chest: Breath sounds normal. She has no wheezes. She has no rhonchi. She has no rales. Neurological: She has normal strength. No cranial nerve deficit or sensory deficit. Reflex Scores: Tricep reflexes are 2+ on the right side and 2+ on the left side. Bicep reflexes are 2+ on the right side and 2+ on the left side. Brachioradialis reflexes are 2+ on the right side and 2+ on the left side. Patellar reflexes are 3+ on the right side and 3+ on the left side. Achilles reflexes are 3+ on the right side and 3+ on the left side. Assessment/Plan Diagnoses and all orders for this visit: Heart sounds, abnormal The complaint that she has today about an abnormal heart sound is unusual. Her cardiac exam is normal today. Her heart was also auscultated in the left lateral decubitus position and no abnormal sounds were appreciated. She was reassured. Chest pain, unspecified type She has been complaining of chest pain for some time and has had multiple stress test ordered and scheduled, but she has not completed any of these. She reluctantly agreed to have this scheduled today. She does have T wave abnormalities and a question of left atrial enlargement on EKG use, which are stable over a number of years. Left arm numbness - MRI Brain with and without Contrast; Future Her numbness continues, and has not been able to be explained by shoulder pathology or C-spine pathology. No significant foraminal stenosis was noted on her MRI of her C-spine. Given the pain and numbness of her left arm, and she notes some temperature changes and has subjective weakness, question whether this could be complex regional pain syndrome. She was referred to neurology to discuss possibility of this as well as management as she has been out of work due to left arm pain. She will continue to follow-up with her orthopedist about her shoulder issues. Left leg numbness - MRI Brain with and without Contrast; Future - MRI Lumbar Spine without Contrast; Future She recently developed left leg numbness, but her neurologic exam is normal today. She denies any leg pain or back pain. I am concerned that she is developing multiple neurologic symptoms in different areas of her body, and with left arm and leg symptoms, concern about more central process. Order MRI of the brain and L-spine to investigate. documented in this encounter Plan of Treatment Not on file documented as of this encounter Results * MRI Lumbar Spine [...] interpretation. Dictated: 07/19/2018 1:14 PM Report ID: [id number] Report signed in external system at 07/19/2018 13:14 Reported By: Kaykay Chávez M.D. (resident) ([id number]) Signed By: Poornima Dale M.D. (KH) Narrative 07/19/2018 1:14 PM EDT RESPONSIBLE LOADER SEMICONDUCTOR DIES: Poornima Dale M.D. EXAMINATION: MRI LUMBAR SPINE [...] Note Poornima Dale MD - 07/19/2018 RESPONSIBLE LOADER SEMICONDUCTOR DIES: Poornima Dale M.D. EXAMINATION: MRI LUMBAR SPINE [...] interpretation. Dictated: 07/19/2018 1:14 PM Report ID: [id number] Report signed in external system at 07/19/2018 13:14 Reported By: Kaykay Chávez M.D. (resident) ([id number]) Signed By: Poornima Dale M.D. (KHOL) Clarissa Salmeron MD [facility] [place] PROCEDUR ES documented in this encounter Visit Diagnoses Diagnosis Heart sounds, abnormal- Primary Other abnormal heart sounds Chest pain, unspecified type Left arm numbness Disturbance of skin sensation Left leg numbness Disturbance of skin sensation Left leg numbness Disturbance of skin sensation documented in this encounter Care Teams Wool Sorter Relationship Specialty Start Date End Date Clarissa Salmeron MD [address] [place] [address], [address] [place] [address] PCP - General Internal Medicine 01/06/17 04/13/19 documented as of this encounter
--- OUTSIDE RECORDS SUMMARY | 2024-04-12 15:40 | XMS_ITS | Encounter Summary ---
Author Organization [facility] Address [address] [facility], [address] [place] [address] Care Team Providers Care Shellacker Name Role Phone Clarissa Salmeron MD Primary Care Provider + Reason for Referral * Diagnostic Imaging (Routine) - Closed Specialty Diagnoses / Procedures Referred By Contac t Referred To Contact Diagnoses Cervical pain Procedures X-ray Cervical Spine 2 or 3 Views Stiven Diego MD [address] [place] [address] Referral ID Status Reason Start Date Expiration Date Visits Re quested Visits Authorized [id number] Closed 05/06/2018 05/06/2019 1 1 Reason for Visit * Diagnostic Imaging (Routine) - Closed Specialty Diagnoses / Procedures Referred By Contac t Referred To Contact Diagnoses Cervical pain Procedures X-ray Cervical Spine 2 or 3 Views Stiven Diego MD [address] [place] [address] Referral ID Status Reason Start Date Expiration Date Visits Re quested Visits Authorized [id number] Closed 05/06/2018 05/06/2019 1 1 Encounter Details Date Type Department Care Team (Latest Contact Info) Description 05/06/2018 2:51 PM EDT - 05/06/2018 11:59 PM EDT Hospital Encounter [facility] X-ray at Medical Office [address], [address] [facility], [address] [place] [address] Stiven Diego MD [address] [place] [address] Discharge Disposition: Home or Self Care Social [...] Name Priority Date/Time Associated Diagnosis Comments XR CERVICAL SPINE 2 OR 3 VW Routine 05/06/2018 3:05 PM EDT Cervical pain documented in this encounter Results * X-ray Cervical Spine [...] interpretation. Dictated: 05/06/2018 4:28 PM Report ID: [id number] Report signed in external system at 05/06/2018 16:28 Reported By: Jolene Dubon M.D. (resident) ([email or web address]) Signed By: Jim Aguilar M.D. (ROMDO) Narrative 05/06/2018 4:28 PM EDT RESPONSIBLE JOWL TRIMMER: Jim Aguilar M.D. EXAMINATION: XR CERVICAL SPINE [...] Note Jim Aguilar MD - 05/06/2018 RESPONSIBLE JOWL TRIMMER: Jim Aguilar M.D. EXAMINATION: XR CERVICAL SPINE [...] interpretation. Dictated: 05/06/2018 4:28 PM Report ID: [id number] Report signed in external system at 05/06/2018 16:28 Reported By: Jolene Dubon M.D. (resident) (AUKB) Signed By: Jim Aguilar M.D. ([facility]) Stiven Diego MD IMG XR PROCEDURES documented in this encounter Visit Diagnoses Diagnosis Cervical pain Cervicalgia documented in this encounter Care Teams Shellacker Relationship Specialty Start Date End Date Clarissa Salmeron MD [address] [facility], [address] [place] [address] PCP - General Internal Medicine 01/06/17 04/13/19 documented as of this encounter
--- OUTSIDE RECORDS SUMMARY | 2024-04-12 15:40 | XMS_ITS | Encounter Summary ---
Author Organization [facility] Address 330 [facility] [address] [facility], [address] [place] [address] Care Team Providers Care Moveman Name Role Phone Clarissa Salmeron MD Primary Care Provider + Encounter Details Date Type Department Care Team (Late st Contact Info) Description 04/27/2018 Scan Document - View in Chart [facility] [address] [facility], [address] [place], [place] [phone] Clarissa Salmeron MD [address] [facility], [address] [place], [place] [phone] Social History Tobacco Use Types Packs/Day Years Used Date Smoking Tobacco: Never Sex and Gender Information Value Date Recorded Sex Assigned at Not on file Gender Identity Not on file Sexual Orientation Not on file documented as of this encounter Plan of Treatment Not on file documented as of this encounter Visit Diagnoses Not on filedocumented in this encounter Care Teams Moveman Relationship Specialty Start Date End Date Clarissa Salmeron MD [address] [facility], [address] [place], [place] [phone] PCP - General Internal Medicine 01/06/17 04/13/19 documented as of this encounter
--- OUTSIDE RECORDS SUMMARY | 2024-04-12 15:40 | XMS_ITS | Encounter Summary ---
Author Organization [facility] Address [address] [facility], [address] [place] [address] Care Team Providers Care Insurance Agency Manager Name Role Phone Clarissa Salmeron MD Primary Care Provider + Reason for Referral * Diagnostic Imaging (Routine) - Closed Specialty Diagnoses / Procedures Referred By Carmen benton Referred To Contact Diagnoses Follow up Procedures X-ray Shoulder 2+ Views Left Stiven Diego MD [address] [place] [address] Referral ID Status Reason Start Date Expiration Date Visits Re quested Visits Authorized [id number] Closed 05/06/2018 05/06/2019 1 1 Reason for Visit * Diagnostic Imaging (Routine) - Closed Specialty Diagnoses / Procedures Referred By Carmen benton Referred To Contact Diagnoses Follow up Procedures X-ray Shoulder 2+ Views Left Stiven Diego MD [address] [place] [address] Referral ID Status Reason Start Date Expiration Date Visits Re quested Visits Authorized [id number] Closed 05/06/2018 05/06/2019 1 1 Encounter Details Date Type Department Care Team (Latest Contact Info) Description 05/06/2018 2:07 PM EDT - 05/06/2018 2:50 PM EDT Hospital Encounter [facility] X-ray at Medical Office Building, [address] [facility], [address] [place] [address] Stiven Diego MD [address] [place] [address] Discharge Disposition: Home or Self Care Social [...] Comments XR SHOULDER 2+ VW LEFT Routine 05/06/2018 2:23 PM EDT Follow up documented in this encounter Results * X-ray Shoulder 2+ Views Left (05/06/2018 2:23 PM EDT) Anatomical Region Laterality Modality Shoulder Left Digital Radiogra phy 05/06/2018 2:10 PM EDT Impressions 05/06/2018 2:30 PM EDT Soft tissue calcification as before. ??No acute left shoulder abnormality detected Dictated: 05/06/2018 2:30 PM Report ID: [id number] Report signed in external system at 05/06/2018 14:30 Reported By: Jim Aguilar M.D. (MAVREICK) Signed By: Jim Aguilar M.D. (MAVERICK) Narrative 05/06/2018 2:30 PM EDT RESPONSIBLE HAND HIDE STRETCHER: Jim Aguilar M.D. EXAMINATION: XR SHOULDER 2+ [...] Note Jim Aguilar MD - 05/06/2018 RESPONSIBLE HAND HIDE STRETCHER: Jim Aguilar M.D. EXAMINATION: XR SHOULDER 2+ [...] abnormalitydetected Dictated: 05/06/2018 2:30 PM Report ID: [id number] Report signed in external system at 05/06/2018 14:30 Reported By: Jim Aguilar M.D. (MAVERICK) Signed By: Jim Aguilar M.D. (MAVERICK) Stiven Diego MD IMG XR PROCEDURES documented in this encounter Visit Diagnoses Diagnosis Follow up documented in this encounter Care Teams Insurance Agency Manager Relationship Specialty Start Date End Date Clarissa Salmeron MD [address] [facility], [address] [place] [address] PCP - General Internal Medicine 01/06/17 04/13/19 documented as of this encounter
--- OUTSIDE RECORDS SUMMARY | 2024-04-12 15:40 | XMS_ITS | Encounter Summary ---
Author Organization [facility] Address [address] [facility] [address] [facility], [address] [place] [address] Care Team Providers Care Motor Block Mechanic Name Role Phone Clarissa Salmeron MD Primary Care Provider + Encounter Details Date Type Department Care Team (Late st Contact Info) Description 07/29/2018 Scan Document - View in Chart [facility] [address] [facility], [address] [place], [place] [phone] Clarissa Salmeron MD 300 [facility], [address] [place], [place] [phone] Social History Tobacco Use Types Packs/Day Years [...] on filedocumented in this encounter Care Teams Motor Block Mechanic Relationship Specialty Start Date End Date Clarissa Salmeron MD [address] [facility], [address] [place] [address] PCP - General Internal Medicine 01/06/17 04/13/19 documented as of this encounter
--- OUTSIDE RECORDS SUMMARY | 2024-04-12 15:40 | XMS_ITS | Encounter Summary ---
Author Organization [facility] Address [address] [facility], [address] [place] [address] Care Team Providers Care Adjuster Arbitrator Name Role Phone Clarissa Salmeron MD Primary Care Provider + Encounter Details Date Type Department Care Team (Late st Contact Info) Description 04/01/2018 Billing Encounter [facility] Main Lab [address] [place] [address] Fany Espinoza VENEER LATHE OPERATOR [address] [facility], [address] [place] [address] Social History Tobacco Use Types Packs/Day Years Used Date Smoking Tobacco: Never Sex and Gender Information Value Date Recorded Sex Assigned at Not on file Gender Identity Not on file Sexual Orientation Not on file documented as of this encounter Plan of Treatment Not on file documented as of this encounter Visit Diagnoses Not on filedocumented in this encounter Care Teams Adjuster Arbitrator Relationship Specialty Start Date End Date Clarissa Salmeron MD [address] [facility], [address] [place] [address] PCP - General Internal Medicine 01/06/17 04/13/19 documented as of this encounter
--- OUTSIDE RECORDS SUMMARY | 2024-04-12 15:40 | XMS_ITS | Encounter Summary ---
Author Organization [facility] Address [address] [facility] e[address] [facility], [address] [place] [address] Care Team Providers Care Final Rail Cutter Name Role Phone Clarissa Salmeron MD Primary Care Provider + Encounter Details Date Type Department Care Team (Late st Contact Info) Description 05/06/2018 Scan Document - View in Chart [facility] [address] [facility], [address] [place], [place] [phone] Clarissa Salmeron MD 300 [facility], [address] [place], [place] [phone] Social History Tobacco Use Types Packs/Day Years Used Date Smoking Tobacco: Never Sex and Gender Information Value Date Recorded Sex Assigned at Not on file Gender Identity Not on file Sexual Orientation Not on file documented as of this encounter Plan of Treatment Not on file documented as of this encounter Visit Diagnoses Not on filedocumented in this encounter Care Teams Final Rail Cutter Relationship Specialty Start Date End Date Clarissa Salmeron MD [address] [facility], [address] [place], [place] [phone] PCP - General Internal Medicine 01/06/17 04/13/19 documented as of this encounter
--- OUTSIDE RECORDS SUMMARY | 2024-04-12 15:40 | XMS_ITS | Encounter Summary ---
Author Organization [facility] Address [address] [place] [address] Care Team Providers Care Signing Teacher Name Role Phone Arlen Ball REHAN Primary Care Provider [phone] Encounter Details Date Type Department Care Team (Late st Contact Info) Description 01/14/2021 Lab Requisition [facility] Pathology & Laboratory Medicine - [facility] [address] [place] [address] Carlos Alberto Gomez MD [address] [place] [address] [place] [address] Encounter for other general examination Social History Tobacco Use Types Packs/Day Years [...] Procedure Name Priority Date/Time Associated Diagnosis Comments SURGICAL PATHOLOGY Today 01/14/2021 9: 08 EDT Encounter for other general examination documented in this encounter Results * SURGICAL PATHOLOGY (01/14/2021 9:08 EDT) Final Diagnosis A. SMALL BOWEL, DUODENUM, BIOPSY: - Duodenal mucosa with no specific pathologic findings. B. STOMACH, ANTRUM, BIOPSY: - Oxyntic and antral mucosa with reactive (chemical) gastritis. See comment. C. GASTROESOPHAGEAL JUNCTION, BIOPSY: - Squamous mucosa with reflux esophagitis. 01/17/2021 11:27 EDT [facility] Diagnosis Comment Immunoperoxidase stains were performed on this case to further characterize the lesion. ANTIBODY(CLONE)(BL OCK):RESULT H pylori (Rabbit Monoclonal (SP48), [place]) (B1): Negative NOTE: One or more of the reagents used in immunoperoxidase testing in this case may not have been cleared or approved by the U.S. Food and Drug Administration (FDA). The FDA has determined that such clearance or approval is not necessary. These tests are used for clinical purposes. They should not be regarded as investigational or for research. These reagents' performance characteristics have been determined by [facility] and/or by the referring laboratory. The positive and negative controls worked appropriately. If immunoperoxidase staining has been performed on alcohol fixed cytology specimens, which has not been fully validated, the assays should be interpreted with caution and correlated with clinical data. This laboratory is certified under the Clinical Laboratory Improvement Amendments of 1988 (CLIA-88) as qualified to perform high complexity clinical laboratory testing. 01/17/2021 11:27 [facility] Attestation There was significant resident/fellow involvement in the diagnostic evaluation of this case. By the signature below, the attending physician certifies that they have personally conducted a gross and/or microscopic examination of the described specimens and rendered or confirmed the above diagnosis. 01/17/2021 11:27 [facility] at 1127 Clinical History Hx colon polyps, bloating, increased fluctuance, diarrhea; R/O celiac; R/O H. pylori 01/17/2021 11:27 [facility] Gross Description A. Received in formalin labelled with proper patient identification (initials E, V) and duodenal Bx are 4 fragments of hayden tissue measuring 0.3 cm and 0.4 cm in greatest dimension. The specimens are submitted in A1. B. Received in formalin labelled with proper patient identification (initials E, V) and antrum Bx are 2 fragments of hayden tissue; each measuring 0.3 x 0.3 x 0.2 cm. The specimens are submitted in B1. C. Received in formalin labelled with proper patient identification (initials E, V) and GE junction Bx are 3 fragments of white tissue; each measuring 0.2 x 0.2 x 0.2 cm. The specimens are submitted in C1. RYAN HILL(ASCP) 01/14/2021 16:28 01/17/2021 11:27 EDT [facility] Resident/Fred w: Perry Baez MD 01/17/2021 11:27 EDT [facility] Performing Lab [facility] 11:27 EDT [facility] Scanned Images 01/17/2021 11:27 EDT [facility] Tissue ENTIRE ESOPHAGO-SAMANTHA CAROLANN MUCOSAL JUNCTION / Unknown 01/14/2021 9:08 EDT 01/14/2021 16:13 EDT Tissue specimen (specimen) STOMACH STRUCTURE / Unknown 01/14/2021 9:08 EDT 01/14/2021 16:13 EDT Tissue specimen (specimen) CARDIOESOPHAGEAL JUNCTION STRUCTURE / Unknown 01/14/2021 9:08 EDT 01/14/2021 16:13 EDT Carlos Alberto Gomez MD PATHOLOGY ORDERA BLES [facility] [address] [place] [address] documented in this encounter Visit Diagnoses Diagnosis Encounter for other general examination documented in this encounter Care Teams Signing Teacher Relationship Specialty Start Date End Date Arlen Ball [place] [address] [address] [place] [address] PCP - General 09/21/20 documented as of this encounter
--- OUTSIDE RECORDS SUMMARY | 2024-04-12 15:41 | XMS_ITS | Encounter Summary ---
Author Organization [facility] Address [address] [facility] [address] [facility], [address] [place] [address] Care Team Providers Care Underpresser Hand Name Role Phone Clarissa Salmeron MD Primary Care Provider + Encounter Details Date Type Department Care Team (Late st Contact Info) Description 01/11/2017 Orders Only [facility] X-ray [address] [place] [address] Partha Hawley PA [address] [place], [place] [id number] Social History Tobacco Use Types Packs/Day Years Used Date Smoking Tobacco: Never Sex and Gender Information Value Date Recorded Sex Assigned at Not on file Gender Identity Not on file Sexual Orientation Not on file documented as of this encounter Plan of Treatment Scheduled Orders Name Type Priority Associated Diagnoses Orde r Schedule X-ray Shoulder 2+ Views Left Imaging Routine Ordered: 017 X-ray Chest 2 Views Imaging Routine Order ed: 01/11/2017 documented as of this encounter Procedures Procedure Name Priority Date/Time Associated Diagnosis Comments XR SHOULDER 2+ VW LEFT Routine 01/11/2017 10:51 AM EDT documented in this encounter Results * X-ray Shoulder 2+ Views Left (01/11/2017 10:51 AM EDT) Anatomical Region Laterality Modality Upper Extremities, Shoulder Left Radi ographic Imaging 01/11/2017 10:5 1 AM EDT Impressions 01/11/2017 11:04 AM EDT ? IMPRESSION: ? 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 ? PAGE 1 ? Signed Report ? (CONTINUED) ? LAZARO,EDGAR ? F ? [id number] ? Partha Ramesh ? REG ER ?ER ? [id number] ? Mary Campos M.D. ? 1960 56 ?01/11/2017 ? Clinical History: : PAIN EVAL FOR FX ? EXAM# ? TYPE/EXAM ? RESULT ? [id number] RAD/SHOULDER-LEFT COMPLETE ? <Continued> ? Dictated: 01/11/2017 10:59 AM ? Report ID: [id number] ?-- REPORT SIGNED IN OTHER VENDOR SYSTEM 01/11/2017 (2033) -- ?Reported And Signed By: PARTHA PHAM M.D. ?CC: Clarissa Salmeron M.D. ? PAGE 2 ? Signed Report ?CC: Clarissa Salmeron M.D. ? PAGE 2 ? Signed Report ? Radiologist SHOM Narrative 01/11/2017 11:04 AM EDT ? EDGAR WILLIS ? F ? [id number] ? Partha Ramesh ? REG ER ?ER ? [id number] ? Mary Campos M.D. ? 1960 56 ?01/11/2017 ? Clinical History: : PAIN EVAL FOR FX ? EXAM# ? TYPE/EXAM ? RESULT ? [id number] RAD/SHOULDER-LEFT COMPLETE ? RESPONSIBLE DOLLY PUSHER: ? Partha Pham M.D. - ROLA ID: [id number] ? EXAMINATION: ? SHOULDER-LEFT COMPLETE ? CLINICAL INDICATION: ? Woke up with severe pain in the left shoulder and left arm. ? Decreased range of motion of the left shoulder. ??No known injury. ? TECHNIQUE: ? Three views of the left shoulder. ? COMPARISON: ? Chest x-ray 10/30/2015. ? FINDINGS: ? There is soft tissue calcification in the left rotator cuff which may ? be seen with calcific peritendinitis. ? There is no fracture dislocation or significant arthritis. ? IMPRESSION: ? 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 ? PAGE 1 ? Signed Report ? (CONTINUED) ? EDGAR WILLIS ? F ? [id number] ? Partha Ramesh ? REG ER ?ER ? [id number] ? Beth Reardon,Mary ? 1960 56 ?01/11/2017 ? Clinical History: : PAIN EVAL FOR FX ? EXAM# ? TYPE/EXAM ? RESULT ? [id number] RAD/SHOULDER-LEFT COMPLETE ? <Continued> ? Dictated: 01/11/2017 10:59 AM ? Report ID: [id number] ?-- REPORT SIGNED IN OTHER VENDOR SYSTEM 01/11/2017 (1059) -- ?Reported And Signed By: PARTHA PHAM M.D. ?CC: Clarissa Salmeron M.D. ? PAGE 2 ? Signed Report ?CC: Clarissa Salmeron M.D. ? PAGE 2 ? Signed Report ? Radiologist SHOM Procedure Note Partha Pham MD - 01/11/2017 EDGAR WILLIS [id number] Chandan P.AJan,Partha [id number] Beth Reardon,[facility] 1960 56 01/11/2017 Clinical History: : PAIN EVAL FOR FX EXAM# TYPE/EXAM RESULT [id number] RAD/SHOULDER-LEFT COMPLETE RESPONSIBLE DOLLY PUSHER: Partha Pham M.D. - ROLA ID: AVA EXAMINATION: SHOULDER-LEFT COMPLETE CLINICAL INDICATION: Woke up with severe pain in the left shoulder and left arm. Decreased range of motion of the left shoulder. No known injury. TECHNIQUE: Three views of the left shoulder. COMPARISON: Chest x-ray 10/30/2015. FINDINGS: There is soft tissue calcification in the left rotator cuff whichmay be seen with calcific peritendinitis. There is no fracture dislocation or significant arthritis. IMPRESSION: Soft tissue calcification of the left rotator cuff consistent with calcific peritendinitis. PAGE 1 Signed Report (CONTINUED) LAZAROEDGAR Piedra [id number] Chandan P.AJan,Partha OSBORNE [id number] Beth Reardon,[facility] 1960 56 01/11/2017 Clinical History: : PAIN EVAL FOR FX EXAM# TYPE/EXAM RESULT [id number] RAD/SHOULDER-LEFT COMPLETE <Continued> Dictated: 01/11/2017 10:59 AM Report ID: [id number] -- REPORT SIGNED IN OTHER VENDOR SYSTEM 01/11/2017 (1059) -- Reported And Signed By: PARTHA PHAM M.D. CC: Clarissa Salmeron M.D. PAGE 2 Signed Report CC: Clarissa Salmeron M.D. PAGE 2 Signed Report Radiologist AVA IMPRESSION: IMPRESSION: Soft tissue calcification of the left rotator cuff consistent with calcific peritendinitis. PAGE 1 Signed Report (CONTINUED) EDGAR WILLIS [id number] Chandan P.AJan,Partha OSBORNE [id number] Beth Reardon,[facility] 1960 56 01/11/2017 Clinical History: : PAIN EVAL FOR FX EXAM# TYPE/EXAM RESULT [id number] RAD/SHOULDER-LEFT COMPLETE <Continued> Dictated: 01/11/2017 10:59 AM Report ID: [id number] -- REPORT SIGNED IN OTHER VENDOR SYSTEM 01/11/2017 (1059) -- Reported And Signed By: PARTHA PHAM M.D. CC: Clarissa Salmeron M.D. PAGE 2 Signed Report CC: Clarissa Salmeron M.D. PAGE 2 Signed Report Radiologist SHOM Partha DAVIS IMG XR PROCEDURES documented in this encounter Visit Diagnoses Not on filedocumented in this encounter Care Teams Underpresser Hand Relationship Specialty Start Date End Date Clarissa Salmeron MD [address] [facility], [address] [place] [address] PCP - General Internal Medicine 01/06/17 04/13/19 documented as of this encounter
--- OUTSIDE RECORDS SUMMARY | 2024-04-12 15:41 | XMS_ITS | Encounter Summary ---
Author Organization [facility] Address [address] [facility], [address] [place] [address] Care Team Providers Care Cigarette Seller Name Role Phone Clarissa Salmeron MD Primary Care Provider + Reason for Visit * Reason Onset Date Comments Med Refill 04/15/2017 Encounter Details Date Type Department Care Team (Late st Contact Info) Description 04/15/2017 Refill [facility] [address] [facility], [address] [place] [address] Clarissa Salmeron MD [address] [facility], [address] [place] [address] Social History Tobacco Use Types Packs/Day Years Used Date Smoking Tobacco: Never Sex and Gender Information Value Date Recorded Sex Assigned at Not on file Gender Identity Not on file Sexual Orientation Not on file documented as of this encounter Plan of Treatment Not on file documented as of this encounter Visit Diagnoses Not on filedocumented in this encounter Care Teams Cigarette Seller Relationship Specialty Start Date End Date Clarissa Salmeron MD [address] [facility], [address] [place] [address] PCP - General Internal Medicine 01/06/17 04/13/19 documented as of this encounter
--- OUTSIDE RECORDS SUMMARY | 2024-04-12 15:41 | XMS_ITS | Encounter Summary ---
Author Organization [facility] Address [address] [facility], [address] [place] [address] Care Team Providers Care Vocational Evaluator Name Role Phone Clarissa Salmeron MD Primary Care Provider + Reason for Visit * Reason Onset Date Comments arm 01/14/2017 Encounter Details Date Type Department Care Team ([facility] st Contact Info) Description 01/14/2017 Telephone [facility] [address] [facility], [address] [place], [place] [address] Clarissa Salmeron MD 300 [facility], [address] [place] [address] arm Social History Tobacco Use Types Packs/Day Years Used Date Smoking Tobacco: Never Sex and Gender Information Value Date Recorded Sex Assigned at Not on file Gender Identity Not on file Sexual Orientation Not on file documented as of this encounter Miscellaneous Notes * Telephone Encounter - Clarissa Salmeron MD - 01/14/2017 11:41 AM EDT Thank you. * Telephone Encounter - Yeimi Becerra - 01/14/2017 11:36 AM EDT Patient stopped by and wanted to give you an update on her arm. She saw Dr. Sousa today for her arm and he gave her cortisone Shot and She is staying out of work for 2 days she is going for Physical therapy next week. She also saw Dr. Mars in Cardiology Today and not to worry to keep her appointment for stress test. And she had another EKG done today as well. documented in this encounter Plan of Treatment Not on file documented as of this encounter Visit Diagnoses Not on filedocumented in this encounter Care Teams Vocational Evaluator Relationship Specialty Start Date End Date Clarissa Salmeron MD [address] [place] [address], [address] [place] [address] PCP - General Internal Medicine 01/06/17 04/13/19 documented as of this encounter
--- OUTSIDE RECORDS SUMMARY | 2024-04-12 15:41 | XMS_ITS | Encounter Summary ---
Author Organization [facility] Address [address] [facility], [address] [place] [address] Care Team Providers Care Slag Mixer Name Role Phone Clarissa Salmeron MD Primary Care Provider + Encounter Details Date Type Department Care Team (Late st Contact Info) Description 01/21/2017 Orders Only [facility] [address] [facility], [address] [place], [place] [phone] Clarissa Salmeron MD [address] [facility], [address] [place], [place] [phone] Social History Tobacco Use Types Packs/Day Years Used Date Smoking Tobacco: Never Sex and Gender Information Value Date Recorded Sex Assigned at Not on file Gender Identity Not on file Sexual Orientation Not on file documented as of this encounter Plan of Treatment Not on file documented as of this encounter Procedures Procedure Name Priority Date/Time Associated Diagnosis Comments SCAN DOC - CARDIAC STRESS ORDER/RESULT Routine 12/12/2016 SCAN DOC - EKG ORDER/RESULT Routine 10/24/2016 documented in this encounter Results * SCAN DOC - CARDIAC STRESS ORDER/RESULT (12/12/2016) Clarissa Salmeron MD SCANNED ORDERS * SCAN DOC - EKG ORDER/RESULT (10/24/2016) Anatomical Region Laterality Modality Other Clarissa Salmeron MD SCANNED ORDERS documented in this encounter Visit Diagnoses Not on filedocumented in this encounter Care Teams Slag Mixer Relationship Specialty Start Date End Date Clarissa Salmeron MD [address] [facility], [address] [place] [address] PCP - General Internal Medicine 01/06/17 04/13/19 documented as of this encounter
--- OUTSIDE RECORDS SUMMARY | 2024-04-12 15:41 | XMS_ITS | Encounter Summary ---
Author Organization [facility] Address [address] [facility], [address] [place] [address] Care Team Providers Care Tree Marker Name Role Phone Clarissa Salmeron MD Primary Care Provider + Reason for Visit * Specialty (Routine) - Closed Specialty Diagnoses / Procedures Referred By Contac t Referred To Contact Physical Therapy Diagnoses Adhesive capsulitis of left shoulder Procedures PT [facility] [place] [address] [address] [facility], [address] [address] [facility] [address] [facility], [address] [address] Referral ID Status Reason Start Date Expiration Date Visits Re quested Visits Authorized [id number] Closed 01/23/2017 04/10/2017 7 7 Encounter Details Date Type Department Care Team ([facility] st Contact Info) Description 03/17/2017 10:30 AM EDT Rehab [facility] Physical Therapy [address] [facility], [address] [address] Abimael Sousa MD [address] [place], [place] [phone] Manfred Mejia, FR[place] Adhesive bursitis of left shoulder (Primary Dx) Social History Tobacco Use Types Packs/Day Years Used Date Smoking Tobacco: Never Sex and Gender Information Value Date Recorded Sex Assigned at Not on file Gender Identity Not on file Sexual Orientation Not on file documented as of this encounter Progress Notes * Manfred Mejia, PT - 03/17/2017 10:30 AM EDT Rehabilitation Services Physical Therapy [address] [facility], [address] [facility] [address] PROGRESS NOTE Nena Ingram is a 56 y.o. female. Subjective Pain is unchanged going see Dr Sousa today. Returning to work next week 1/2 days Objective [facility] AROM FLEXION 165,ABD 160,ER 65, codmans Wall walking ER strech Assessment/Plan Pt limited secondary to pain, ROM functional Manfred Mejia, PT 03/17/2017 documented in this encounter Plan of Treatment Not on file documented as of this encounter Visit Diagnoses Diagnosis Adhesive bursitis of left shoulder- Primary documented in this encounter Care Teams Tree Marker Relationship Specialty Start Date End Date Clarissa Salmeron MD [address] [facility], [address] [place] [address] PCP - General Internal Medicine 01/06/17 04/13/19 documented as of this encounter
--- OUTSIDE RECORDS SUMMARY | 2024-04-12 15:41 | XMS_ITS | Encounter Summary ---
Author Organization [facility] Address [address] [facility], [address] [place] [address] Care Team Providers Care Group Practice Pediatrician Name Role Phone Clarissa Salmeron MD Primary Care Provider + Encounter Details Date Type Department Care Team (Late st Contact Info) Description 04/07/2017 Billing Encounter [facility] Main Lab [address] [place] [address] Clarissa Salmeron MD 300 [facility], [address] [place] [address] Social History Tobacco Use Types Packs/Day Years Used Date Smoking Tobacco: Never Sex and Gender Information Value Date Recorded Sex Assigned at Not on file Gender Identity Not on file Sexual Orientation Not on file documented as of this encounter Plan of Treatment Not on file documented as of this encounter Visit Diagnoses Not on filedocumented in this encounter Care Teams Group Practice Pediatrician Relationship Specialty Start Date End Date Clarissa Salmeron MD [address] [facility], [address] [place] [address] PCP - General Internal Medicine 01/06/17 04/13/19 documented as of this encounter
--- OUTSIDE RECORDS SUMMARY | 2024-04-12 15:41 | XMS_ITS | Encounter Summary ---
Author Organization [facility] Address 330 [facility] [address] [facility], [address] [place] [address] Care Team Providers Care Clothing Patternmaker Name Role Phone Clarissa Salmeron MD Primary Care Provider + Encounter Details Date Type Department Care Team (Late st Contact Info) Description 05/01/2017 Scan Document - View in Chart [facility] Associates 300 [facility], [address] [place], [place] [phone] Clarissa Salmeron MD 300 [facility], [address] [place], [place] [phone] Social History Tobacco Use Types Packs/Day Years Used Date Smoking Tobacco: Never Sex and Gender Information Value Date Recorded Sex Assigned at Not on file Gender Identity Not on file Sexual Orientation Not on file documented as of this encounter Plan of Treatment Not on file documented as of this encounter Visit Diagnoses Not on filedocumented in this encounter Care Teams Clothing Patternmaker Relationship Specialty Start Date End Date Clarissa Salmeron MD 300 [facility], [address] [place], [place] [phone] PCP - General Internal Medicine 01/06/17 04/13/19 documented as of this encounter
--- OUTSIDE RECORDS SUMMARY | 2024-04-12 15:41 | XMS_ITS | Encounter Summary ---
Author Organization [facility] Address [address] [facility], [address] [place] [address] Care Team Providers Care Alternative Financing Specialist Name Role Phone Clarissa Salmeron MD Primary Care Provider + Reason for Referral * Diagnostic Imaging (Routine) - Closed Specialty Diagnoses / Procedures Referred By Contac t Referred To Contact Diagnoses Chest pain Lightheadedness Procedures Exercise stress with echocardiography TRANSTHORACIC ECHO (TTE) COMPLETE NO DOPPLER NO COLOR DOBUTAMINE WITH ECHO ECHOCARDIOGRAM EXERCISE STRESS TEST Clarissa Salmeron MD [address] [facility], [address] [place] [address] Referral ID Status Reason Start Date Expiration Date Visits Re quested Visits Authorized [id number] Closed 01/24/2017 07/23/2017 1 1 Encounter Details Date Type Department Care Team (Late st Contact Info) Description 01/24/2017 Ancillary Orders [facility] [address] [place] [address] Clarissa Salmeron MD [address] [facility], [address] [place], [place] [phone] Chest pain; Lightheadedness Social History Tobacco Use Types Packs/Day Years Used Date Smoking Tobacco: Never Sex and Gender Information Value Date Recorded Sex Assigned at Not on file Gender Identity Not on file Sexual Orientation Not on file documented as of this encounter Plan of Treatment Scheduled Orders Name Type Priority Associated Diagnoses Order Schedule Exercise stress with echocardiography Echocardiography Routine Chest pain Lightheadedness 1 Occurrences starting 01/24/2017 until 01/24/2018 documented as of this encounter Visit Diagnoses Diagnosis Chest pain Unspecified chest pain Lightheadedness Dizziness and giddiness documented in this encounter Care Teams Alternative Financing Specialist Relationship Specialty Start Date End Date Clarissa Salmeron MD [address] [facility], [address] [place] [address] PCP - General Internal Medicine 01/06/17 04/13/19 documented as of this encounter
--- OUTSIDE RECORDS SUMMARY | 2024-04-12 15:41 | XMS_ITS | Encounter Summary ---
Author Organization [facility] Address 330 [facility] eet [facility], [address] [place] [address] Care Team Providers Care Rd Project Manager Name Role Phone Clarissa Salmeron MD Primary Care Provider + Encounter Details Date Type Department Care Team (Late st Contact Info) Description 02/02/2017 Scan Document - View in Chart [facility] [address] [facility], [address] [place], [place] [phone] Clarissa Salmeron MD [address] [facility], [address] [place], [place] [phone] Social History Tobacco Use Types Packs/Day Years Used Date Smoking Tobacco: Never Sex and Gender Information Value Date Recorded Sex Assigned at Not on file Gender Identity Not on file Sexual Orientation Not on file documented as of this encounter Plan of Treatment Not on file documented as of this encounter Visit Diagnoses Not on filedocumented in this encounter Care Teams Rd Project Manager Relationship Specialty Start Date End Date Clarissa Salmeron MD [address] [facility], [address] [place], [place] [phone] PCP - General Internal Medicine 01/06/17 04/13/19 documented as of this encounter
--- OUTSIDE RECORDS SUMMARY | 2024-04-12 15:41 | XMS_ITS | Encounter Summary ---
Author Organization [facility] Address [address] [facility], [address] [place] [address] Care Team Providers Care Hairspring Ii Inspector Name Role Phone Clarissa Salmeron MD Primary Care Provider + Reason for Visit * Specialty (Routine) - Closed Specialty Diagnoses / Procedures Referred By Contac t Referred To Contact Physical Therapy Diagnoses Adhesive capsulitis of left shoulder Procedures PT [facility] [place] [address] [place] [address], [address] [address] [facility] [address] [facility], [address] [address] Referral ID Status Reason Start Date Expiration Date Visits Re quested Visits Authorized [id number] Closed 01/23/2017 04/10/2017 7 7 Encounter Details Date Type Department Care Team ([facility] st Contact Info) Description 02/17/2017 9:30 AM EDT Rehab [facility] Physical Therapy [address] [facility], [address] [address] Abimael Sousa MD [address] [place], [place] [phone] Manfred Mejia, FR[place] Adhesive bursitis of left shoulder (Primary Dx) Social History Tobacco Use Types Packs/Day Years Used Date Smoking Tobacco: Never Sex and Gender Information Value Date Recorded Sex Assigned at Not on file Gender Identity Not on file Sexual Orientation Not on file documented as of this encounter Progress Notes * Manfred Mejia, PT - 02/17/2017 9:30 AM EDT Rehabilitation Services Physical Therapy [address] [facility], [address] [facility] [phone] PROGRESS NOTE Nena Ingram is a 56 y.o. female. Subjective The shoulder is sore Objective Observation: Pt holding arm in normal position Manual streching L shld Cane ex, wall walking, codmans AROM Flexion 130 ?? ER 70 ?? Assessment/Plan Pt improving ROM The patient will benefit from continued skilled PT Manfred Mejia, PT 02/17/2017 documented in this encounter Plan of Treatment Not on file documented as of this encounter Visit Diagnoses Diagnosis Adhesive bursitis of left shoulder- Primary documented in this encounter Care Teams Hairspring Ii Inspector Relationship Specialty Start Date End Date Clarissa Salmeron MD [address] [facility], [address] [place], [place] [phone] PCP - General Internal Medicine 01/06/17 04/13/19 documented as of this encounter
--- OUTSIDE RECORDS SUMMARY | 2024-04-12 15:41 | XMS_ITS | Encounter Summary ---
Author Organization [facility] Address 330 [facility] [address] [place] [address] Care Team Providers Care Respiratory Therapy Manager Name Role Phone Unavailable Primary Care Provider Unavailabl e Encounter Details Date Type Department Care Team (Late st Contact Info) Description 12/24/2016 Abstract [facility] [address] [facility], [address] [place], [place] [phone] Clarissa Salmeron MD 300 [facility], [address] [place], [place] [phone] History of gestational diabetes Social History Tobacco Use Types Packs/Day Years Used Date Smoking Tobacco: Never Sex and Gender Information Value Date Recorded Sex Assigned at Not on file Gender Identity Not on file Sexual Orientation Not on file documented as of this encounter Plan of Treatment Not on file documented as of this encounter Visit Diagnoses Diagnosis History of gestational diabetes Personal history of other genital system and obstetric disorders documented in this encounter
--- OUTSIDE RECORDS SUMMARY | 2024-04-12 15:41 | XMS_ITS | Encounter Summary ---
Author Organization [facility] Address 330 [facility] eet [facility], [address] [place] [address] Care Team Providers Care Grounds Maintenance Supervisor Name Role Phone Clarissa Salmeron MD Primary Care Provider + Reason for Visit * Specialty (Routine) - Closed Specialty Diagnoses / Procedures Referred By Contac t Referred To Contact Physical Therapy Diagnoses Adhesive capsulitis of left shoulder Procedures PT [facility] [address] [facility], [address] [place] [address] [facility] [address] [facility], [address] [place] [address] Referral ID Status Reason Start Date Expiration Date Visits Re quested Visits Authorized [id number] Closed 01/23/2017 04/10/2017 7 7 Encounter Details Date Type Department Care Team (Late st Contact Info) Description 02/24/2017 10:30 AM EDT Rehab [facility] Physical Therapy [address] [facility], [address] [place] [address] Clarissa Salmeron MD [address] [facility], [address] [place] [phone] Manfred Mejia, PT Adhesive bursitis of left shoulder (Primary Dx) Social History Tobacco Use Types Packs/Day Years Used Date Smoking Tobacco: Never Sex and Gender Information Value Date Recorded Sex Assigned at Not on file Gender Identity Not on file Sexual Orientation Not on file documented as of this encounter Progress Notes * Manfred Mejia, PT - 02/24/2017 10:30 AM EDT Rehabilitation Services Physical Therapy [address] [facility], [address] [facility] [address] PROGRESS NOTE Nena Ingram is a 56 y.o. female. Subjective The shoulder is ok no pain Some sorenss L forearm Objective Observation: Pt holding arm in normal position Manual streching L shld Cane ex, wall walking, codmans Reviewed correct ergo. computer Assessment/Plan Pt improving ROM The patient will benefit from continued skilled PT 1x/week 3 weeks Manfred Mejia PT 02/24/2017 documented in this encounter Plan of Treatment Not on file documented as of this encounter Visit Diagnoses Diagnosis Adhesive bursitis of left shoulder- Primary documented in this encounter Care Teams Grounds Maintenance Supervisor Relationship Specialty Start Date End Date Clarissa Salmeron MD [address] [facility], [address] [place] [address] PCP - General Internal Medicine 01/06/17 04/13/19 documented as of this encounter
--- OUTSIDE RECORDS SUMMARY | 2024-04-12 15:41 | XMS_ITS | Encounter Summary ---
Author Organization [facility] Address 330 [facility] eet [facility], [address] [place] [address] Care Team Providers Care Candy Forming Machine Operator Name Role Phone Clarissa Salmeron MD Primary Care Provider + Encounter Details Date Type Department Care Team (Late st Contact Info) Description 01/11/2017 Orders Only [facility] [address] [place] [address] Mary Campos MD [address] [place], [place] [phone] Social History Tobacco Use Types Packs/Day Years Used Date Smoking Tobacco: Never Sex and Gender Information Value Date Recorded Sex Assigned at Not on file Gender Identity Not on file Sexual Orientation Not on file documented as of this encounter Plan of Treatment Not on file documented as of this encounter Procedures Procedure Name Priority Date/Time Associated Diagnosis Comments TROPONIN I Routine 01/11/2017 12:13 PM EDT BASIC METABOLIC PANEL Routine 01/11/2017 12:13 PM EDT EKG REPORT/HISTORICAL DATA Routine 01/11/2017 9:56 AM EDT documented in this encounter Results * Troponin I (01/11/2017 12:13 PM EDT) Troponin I < 0.012 <0.034 ng/mL [facility] 01/11/2017 12:1 3 PM EDT 01/11/2017 12:13 PM EDT Mary Campos MD LAB BLOOD ORDERABLES [facility] [address] [place] [address], * Basic metabolic panel w/GFR (01/11/2017 12:13 PM EDT) Sodium 143 137 - 145 mmol/L [facility] Potassium 3.8 3.5 - 5.1 mmol/L [facility] Chloride 101 98 - 107 mmol/L [facility] CO2 30.0 22.0 - 30.0 mmol/L [facility] Anion Gap 11.1 6 - 14 [facility] Glucose 93 70 - 99 mg/dL [facility] Comment: Reference range is applicable to fasting specimens only. A random glucose > 200 mg/dL should be considered diagnostic for diabetes mellitus if confirmed on a subsequent day. All reference ranges and interpretations have been set according to recently formulated ADA recommendations. www.diabetes.org Reference range is applicable to fasting specimens only. A random glucose > 200 mg/dL should be considered diagnostic for diabetes mellitus if confirmed on a subsequent day. All reference ranges and interpretations have been set according to recently formulated ADA recommendations. www.diabetes.org BUN 11 7 - 17 mg/dL [facility] Creatinine 0.6 0.5 - 1.0 mg/dL [facility] eGFR > 60 >60 SEE TEXT [facility] Comment: eGFR Reference range: > 60 mL/min/1.73 sq meter In Americans the eGFR should be multiplied by 1.212. eGFR Reference range: > 60 mL/min/1.73 sq meter In Americans the eGFR should be multiplied by 1.212. Calcium 9.5 8.3 - 10.3 mg/dL [facility] 01/11/2017 12:1 3 PM EDT 01/11/2017 12:13 PM EDT Mary Campos MD LAB BLOOD ORDERABLES [facility] [address] [place] [address], * EKG Report/Historical data (01/11/2017 9:56 AM EDT) 01/11/2017 9:56 AM EDT Narrative [facility] - 01/12/2017 4:25 PM EDT M O U N T ?? A U B U R N ?? H O S P I T A L [address] [facility] ?? . ?? [place] ?? . ?? [place] ?? . ?? [address] CARDIOLOGY SERVICES Electrocardiogram Report MR No.: ??[id number] ?Attending: Name: ??EDGAR INGRAM ?Location: ??ER : ??61 ? Patient Phone: ??[phone] CELL Age: ??56 ? Sex: ??F FN No.: ??[id number] Reason for Visit: LEFT SHOULDER/ARM PAIN DATE OF EC01/11/17 ??TIME: 955 SURGERY? INTERPRETATION: Test Reason : CP Blood Pressure : ---/--- mmHG Vent. Rate : 093 BPM ? Atrial Rate : 093 BPM P-R Int : 118 ms ?QRS Dur : 090 ms QT Int : 356 ms ? P-R-T Axes : 048 060 038 degrees QTc Int : 442 ms Normal sinus rhythm Possible Left atrial enlargement T wave abnormality, consider anterolateral ischemia Abnormal ECG When compared with ECG of 09-OCT-2016 13:21, T wave inversion more evident in Lateral leads Confirmed by DARSHAN CLEMENTS ([id number]) on 01/12/2017 4:25:11 PM Referred By: Mary Campos ? Confirmed By:DARSHAN CLEMENTS Darshan Clements M.D. Form: [id number] Procedure Note 01/12/2017 M O U N T A U B U R N H O S P I T A L [address] [place] [address] . [address] CARDIOLOGY SERVICES Electrocardiogram Report No.: [id number] Attending: Name: EDGAR INGRAM Location: ER : 61 Patient CELL Age: 56 Sex: F FN No.: [id number] Reason for Visit: LEFT SHOULDER/ARM PAIN DATE OF EC01/11/17 TIME: 0956 SURGERY? INTERPRETATION: Test Reason : CP Blood Pressure : ---/--- mmHG Vent. Rate : 093 BPM Atrial Rate : 093 BPM P-R Int : 118 ms QRS Dur : 090 ms QT Int : 356 ms P-R-T Axes : 048 060 038 degrees QTc Int : 442 ms Normal sinus rhythm Possible Left atrial enlargement T wave abnormality, consider anterolateral ischemia Abnormal ECG When compared with ECG of 09-OCT-2016 13:21, T wave inversion more evident in Lateral leads Confirmed by DARSHAN CLEMENTS ([id number]) on 01/12/2017 4:25:11 PM Referred By: Mary Campos Confirmed By:DARSHAN CLEMENTS Darshan Clements M.D. Form: [id number] Mary Campos MD ECG ORDERABLES [facility] [address] [place] [address], documented in this encounter Visit Diagnoses Not on filedocumented in this encounter Care Teams Candy Forming Machine Operator Relationship Specialty Start Date End Date Clarissa Salmeron MD [address] [facility], [address] [place] [address] PCP - General Internal Medicine 01/06/17 04/13/19 documented as of this encounter
--- OUTSIDE RECORDS SUMMARY | 2024-04-12 15:41 | XMS_ITS | Encounter Summary ---
Author Organization [facility] Address [address] [facility] eet [facility], [address] [place] [address] Care Team Providers Care Cycle Touring Guide Name Role Phone Clarissa Salmeron MD Primary Care Provider + Encounter Details Date Type Department Care Team (Late st Contact Info) Description 01/23/2017 Scan Document - View in Chart [facility] [address] [facility], [address] [place], [place] [phone] Clarissa Salmeron MD 300 [facility], [address] [place], [place] [phone] Social History Tobacco Use Types Packs/Day Years Used Date Smoking Tobacco: Never Sex and Gender Information Value Date Recorded Sex Assigned at Not on file Gender Identity Not on file Sexual Orientation Not on file documented as of this encounter Plan of Treatment Not on file documented as of this encounter Visit Diagnoses Not on filedocumented in this encounter Care Teams Cycle Touring Guide Relationship Specialty Start Date End Date Clarissa Salmeron MD [address] [facility], [address] [place], [place] [phone] PCP - General Internal Medicine 01/06/17 04/13/19 documented as of this encounter
--- OUTSIDE RECORDS SUMMARY | 2024-04-12 15:41 | XMS_ITS | Encounter Summary ---
Author Organization [facility] Address [address] [facility], [address] [place] [address] Care Team Providers Care Pot Puncher Name Role Phone Clarissa Salmeron MD Primary Care Provider + Encounter Details Date Type Department Care Team (Late st Contact Info) Description 04/08/2017 Orders Only [facility] [address] [facility], [address] [place] [address] Clarissa Salmeron MD [address] [facility], [address] [place], [place] [phone] Left arm pain (Primary Dx) Social History Tobacco Use Types Packs/Day Years Used Date Smoking Tobacco: Never Sex and Gender Information Value Date Recorded Sex Assigned at Not on file Gender Identity Not on file Sexual Orientation Not on file documented as of this encounter Plan of Treatment Not on file documented as of this encounter Procedures Procedure Name Priority Date/Time Associated Diagnosis Comments MAGNESIUM Routine 04/07/2017 8:05 PM EDT Left arm pain documented in this encounter Results * Magnesium (04/07/2017 8:05 PM EDT) Magnesium Blood 2.2 1.6 - 2.3 mg/dL 04/09/2017 4:01 AM EDT [facility] Blood Venous blood / Unknown Venipuncture / Unknown 04/07/2017 8:05 PM EDT 04/07/2017 8:05 PM EDT Clarissa Salmeron MD LAB BLOOD ORDERA BLES [facility] [address] [place] [address], documented in this encounter Visit Diagnoses Diagnosis Left arm pain- Primary Pain in soft tissues of limb documented in this encounter Care Teams Pot Puncher Relationship Specialty Start Date End Date Clarissa Salmeron MD [address] [facility], [address] [place] [address] PCP - General Internal Medicine 01/06/17 04/13/19 documented as of this encounter
--- OUTSIDE RECORDS SUMMARY | 2024-04-12 15:41 | XMS_ITS | Encounter Summary ---
Author Organization [facility] Address 330 [facility] eet [facility], [address] [place] [address] Care Team Providers Care Corporate Accounting Manager Name Role Phone Clarissa Salmeron MD Primary Care Provider + Encounter Details Date Type Department Care Team (Late st Contact Info) Description 01/27/2017 Scan Document - View in Chart [facility] [address] [facility], [address] [place], [place] [phone] Clarissa Salmeron MD [address] [facility], [address] [place], [place] [phone] Social History Tobacco Use Types Packs/Day Years Used Date Smoking Tobacco: Never Sex and Gender Information Value Date Recorded Sex Assigned at Not on file Gender Identity Not on file Sexual Orientation Not on file documented as of this encounter Plan of Treatment Not on file documented as of this encounter Visit Diagnoses Not on filedocumented in this encounter Care Teams Corporate Accounting Manager Relationship Specialty Start Date End Date Clarissa Salmeron MD [address] [facility], [address] [place], [place] [phone] PCP - General Internal Medicine 01/06/17 04/13/19 documented as of this encounter
--- OUTSIDE RECORDS SUMMARY | 2024-04-12 15:41 | XMS_ITS | Encounter Summary ---
Author Organization [facility] Address 330 [facility] eet [facility], [address] [place] [address] Care Team Providers Care Divider Operator Name Role Phone Clarissa Salmeron MD Primary Care Provider + Encounter Details Date Type Department Care Team (Late st Contact Info) Description 01/29/2017 Scan Document - View in Chart [facility] [address] [facility], [address] [place], [place] [phone] Clarissa Salmeron MD [address] [facility], [address] [place], [place] [phone] Social History Tobacco Use Types Packs/Day Years Used Date Smoking Tobacco: Never Sex and Gender Information Value Date Recorded Sex Assigned at Not on file Gender Identity Not on file Sexual Orientation Not on file documented as of this encounter Plan of Treatment Not on file documented as of this encounter Visit Diagnoses Not on filedocumented in this encounter Care Teams Divider Operator Relationship Specialty Start Date End Date Clarissa Salmeron MD [address] [facility], [address] [place], [place] [phone] PCP - General Internal Medicine 01/06/17 04/13/19 documented as of this encounter
--- OUTSIDE RECORDS SUMMARY | 2024-04-12 15:41 | XMS_ITS | Encounter Summary ---
Author Organization [facility] Address 330 [facility] eet [facility], [address] [place] [address] Care Team Providers Care Supervisor Polishing Name Role Phone Clarissa Salmeron MD Primary Care Provider + Encounter Details Date Type Department Care Team (Late st Contact Info) Description 03/10/2017 11:00 AM EDT Rehab [facility] Physical Therapy [address] [facility], [address] [place] [address] Clarissa Salmeron MD [address] [facility], [address] [place], [place] [phone] Manfred Mejia, PT Adhesive bursitis of left shoulder (Primary Dx) Social History Tobacco Use Types Packs/Day Years Used Date Smoking Tobacco: Never Sex and Gender Information Value Date Recorded Sex Assigned at Not on file Gender Identity Not on file Sexual Orientation Not on file documented as of this encounter Progress Notes * Manfred Mejia, PT - 03/10/2017 11:00 AM EDT Rehabilitation Services Physical Therapy [address] [facility], [address] [facility] [address] PROGRESS NOTE Nena Ingram is a 56 y.o. female. Subjective I stopped doing my exercises because of the pain Objective [facility] codmans Wall walking ER strech Assessment/Plan Pt limited secondary to pain Manfred Mejia, PT 03/10/2017 documented in this encounter Plan of Treatment Not on file documented as of this encounter Visit Diagnoses Diagnosis Adhesive bursitis of left shoulder- Primary documented in this encounter Care Teams Supervisor Polishing Relationship Specialty Start Date End Date Clarissa Salmeron MD [address] [facility], [address] [place] [address] PCP - General Internal Medicine 01/06/17 04/13/19 documented as of this encounter
--- OUTSIDE RECORDS SUMMARY | 2024-04-12 15:41 | XMS_ITS | Encounter Summary ---
Author Organization [facility] Address [address] [facility] [address] [facility], [address] [place] [address] Care Team Providers Care Tennis Court Attendant Name Role Phone Clarissa Salmeron MD Primary Care Provider + Reason for Visit * Specialty (Routine) - Closed Specialty Diagnoses / Procedures Referred By Contac t Referred To Contact Physical Therapy Diagnoses Adhesive capsulitis of left shoulder Procedures PT FUV [facility] [address] [facility], [address] [place] [address] [facility] [address] [facility], [address] [place] [address] Referral ID Status Reason Start Date Expiration Date Visits Re quested Visits Authorized [id number] Closed 01/23/2017 04/10/2017 7 7 Encounter Details Date Type Department Care Team (Late st Contact Info) Description 02/09/2017 10:00 AM EDT Rehab [facility] Physical Therapy [address] [facility], [address] [place] [address] Clarissa Salmeron MD [address] [facility], [address] [place] [address] [id number] Manfred Mejia, PT Adhesive bursitis of left shoulder (Primary Dx) Social History Tobacco Use Types Packs/Day Years Used Date Smoking Tobacco: Never Sex and Gender Information Value Date Recorded Sex Assigned at Not on file Gender Identity Not on file Sexual Orientation Not on file documented as of this encounter Progress Notes * Manfred Mejia, PT - 02/09/2017 10:00 AM EDT Please refer to the paper chart for this treatment session documented in this encounter Plan of Treatment Not on file documented as of this encounter Visit Diagnoses Diagnosis Adhesive bursitis of left shoulder- Primary documented in this encounter Care Teams Tennis Court Attendant Relationship Specialty Start Date End Date Clarissa Salmeron MD [address] [place] [address], [address] [place] [address] PCP - General Internal Medicine 01/06/17 04/13/19 documented as of this encounter
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
--- OUTSIDE RECORDS SUMMARY | 2024-04-12 15:41 | XMS_ITS | Encounter Summary ---
Author Organization [facility] Address [address] [facility] [address] [facility], [address] [place] [address] Care Team Providers Care Photogrammetric Technician Name Role Phone Clarissa Salmeron MD Primary Care Provider + Reason for Visit * Specialty (Routine) - Closed Specialty Diagnoses / Procedures Referred By Contac t Referred To Contact Physical Therapy Diagnoses Adhesive capsulitis of left shoulder Procedures PT FUV [facility] [address] [facility], [address] [place] [address] [facility] [address] [facility], [address] [place] [address] Referral ID Status Reason Start Date Expiration Date Visits Re quested Visits Authorized [id number] Closed 01/23/2017 04/10/2017 7 7 Encounter Details Date Type Department Care Team (Late st Contact Info) Description 03/03/2017 10:00 AM EDT Rehab [facility] Physical Therapy [address] [facility], [address] [place] [address] Clarissa Salmeron MD [address] [facility], [address] [place] [phone] Manfred Mejia, PT Adhesive bursitis of left shoulder (Primary Dx) Social History Tobacco Use Types Packs/Day Years Used Date Smoking Tobacco: Never Sex and Gender Information Value Date Recorded Sex Assigned at Not on file Gender Identity Not on file Sexual Orientation Not on file documented as of this encounter Progress Notes * Manfred Mejia, PT - 03/03/2017 10:00 AM EDT Rehabilitation Services Physical Therapy [address] [facility], [address] [facility] [address] PROGRESS NOTE Nena Ingram is a 56 y.o. female. Subjective I am having difficulty using arm for cooking Objective Observation: Pt holding arm in normal position Manual streching L shld Cane ex, wall walking, codmans Reviewed correct ergo. computer Assessment/Plan Pt improving ROM Manfred Mejia, PT 03/03/2017 documented in this encounter Plan of Treatment Not on file documented as of this encounter Visit Diagnoses Diagnosis Adhesive bursitis of left shoulder- Primary documented in this encounter Care Teams Photogrammetric Technician Relationship Specialty Start Date End Date Clarissa Salmeron MD [address] [facility], [address] [place], [place] [phone] PCP - General Internal Medicine 01/06/17 04/13/19 documented as of this encounter
--- OUTSIDE RECORDS SUMMARY | 2024-04-12 15:41 | XMS_ITS | Encounter Summary ---
Author Organization [facility] Address [address] [facility] [address] [facility], [address] [place] [address] Care Team Providers Care Clinic Office Assistant Name Role Phone Clarissa Salmeron MD Primary Care Provider + Encounter Details Date Type Department Care Team (Late st Contact Info) Description 03/18/2017 Scan Document - View in Chart [facility] [address] [facility], [address] [place], [place] [phone] Clarissa Salmeron MD [address] [facility], [address] [place], [place] [phone] Social History Tobacco Use Types Packs/Day Years Used Date Smoking Tobacco: Never Sex and Gender Information Value Date Recorded Sex Assigned at Not on file Gender Identity Not on file Sexual Orientation Not on file documented as of this encounter Plan of Treatment Not on file documented as of this encounter Visit Diagnoses Not on filedocumented in this encounter Care Teams Clinic Office Assistant Relationship Specialty Start Date End Date Clarissa Salmeron MD [address] [facility], [address] [place], [place] [phone] PCP - General Internal Medicine 01/06/17 04/13/19 documented as of this encounter
--- OUTSIDE RECORDS SUMMARY | 2024-04-12 15:41 | XMS_ITS | Encounter Summary ---
Author Organization [facility] Address [address] [facility], [address] [place] [address] Care Team Providers Care Outboard System Operator Name Role Phone Clarissa Salmeron MD Primary Care Provider + Reason for Visit * Reason Onset Date Comments quality control projectionist: left arm pain 01/10/2017 Encounter Details Date Type Department Care Team (Late st Contact Info) Description 01/10/2017 Telephone [facility] [address] [place] [address] Kisha Harp MD [address] [place], [place] [phone] quality control projectionist: left arm pain Social History Tobacco Use Types Packs/Day Years Used Date Smoking Tobacco: Never Sex and Gender Information Value Date Recorded Sex Assigned at Not on file Gender Identity Not on file Sexual Orientation Not on file documented as of this encounter Miscellaneous Notes * Telephone Encounter - Clarissa Salmeron MD - 01/12/2017 7:26 AM EDT Noted. Patient went to ED yesterday, but MD note is not available yet. * Telephone Encounter - Kisha Harp MD - 01/10/2017 10:44 AM EDT She's had months of pain in thumb with some intermittent left arm pain (notes she's scheduled for ETT). Woke at 2 am with throbbing pain left arm; can't move arm due to worsening pain. Has taken advil and tylenol with slight improvement. Discussed options of WIC or ER. Positional exacerbation makesCAD unlikely though etiology unclear (Dr. Salmeron suspected cervical spine cause with numbness an d pain).. OK to try ibuprofen 600 tid + tylenol (max 3000 mg/day). Will go to ER if pain not bearable or further concerns. O/W will call for appt Thursday. documented in this encounter Plan of Treatment Not on file documented as of this encounter Visit Diagnoses Not on filedocumented in this encounter Care Teams Outboard System Operator Relationship Specialty Start Date End Date Clarissa Salmeron MD [address] [facility], [address] [place] [address] PCP - General Internal Medicine 01/06/17 04/13/19 documented as of this encounter
--- OUTSIDE RECORDS SUMMARY | 2024-04-12 15:41 | XMS_ITS | Encounter Summary ---
Author Organization [facility] Address [address] [facility], [address] [place] [address] Care Team Providers Care Folder Machine Name Role Phone Clarissa Salmeron MD Primary Care Provider + Reason for Visit * Reason Onset Date Comments Appointment 11/20/2016 Encounter Details Date Type Department Care Team (Late st Contact Info) Description 11/20/2016 Telephone [facility] [address] [facility] [address] [place] [address] Pamela Barrera MA [facility] Appointment Social History Tobacco Use Types Packs/Day Years Used Date Smoking Tobacco: Never Sex and Gender Information Value Date Recorded Sex Assigned at Not on file Gender Identity Not on file Sexual Orientation Not on file documented as of this encounter Miscellaneous Notes * Telephone Encounter - Clarissa Salmeron MD - 01/12/2017 1:44 PM EDT Talked to patient, she had to reschedule for 02/13, but is seeing Dr. Mars in 2 days who can likelymove this up if she feels is necessary. * Telephone Encounter - Pamela Barrera MA - 01/07/2017 1:52 PM EDT Pt said that she can not keep the echo appointment . Pt said she is doing doing fine she still has a little numbness but walking and home therapies has helped. Pt said that she just wants to echo cancelled I told her I cannot cancel * Telephone Encounter - Anjana Simon - 01/06/2017 11:45 AM EDT Unable to reach pt LVM * Telephone Encounter - Pamela Barrera MA - 01/06/2017 9:28 AM EDT Can you please call the pt and let her know that Dr. Salmeron would like her to keep this appointment * Telephone Encounter - Pamela Barrera MA - 01/02/2017 2:40 PM EDT Left Message on pt phone for call back * Telephone Encounter - Clarissa Salmeron MD - 01/01/2017 5:49 PM EDT I would prefer that she have this test done. * Telephone Encounter - Pamela Barrera MA - 01/01/2017 3:03 PM EDT I spoke to les today who wanted me to ask you if she can cancel her stress test because her symptoms have resolved and the times that cardiology books the test does not work for her. Is it okay to cancel this appointment. * Telephone Encounter - Anjana Simon - 12/18/2016 1:16 PM EDT Unable to reach pt LVM to inform pt that stress test was rescheduled to 01/08/17 @ 7:30AM * Telephone Encounter - Pamela Barrera MA - 12/18/2016 11:21 AM EDT Can you call Radiology and reschedule this for me * Telephone Encounter - Yeimi Becerra - 12/10/2016 12:11 PM EDT Patient called and needs to cancel stress test scheduled for 12/12 she said That morning works best for her not the afternoon and if not she needs To reschedule for another day * Telephone Encounter - Pamela Barrera MA - 11/20/2016 10:08 AM EST Rescheduled pt stress test for 12/12/16 @ 2:00 PM. Called pt unable to leave VM mailbox is full documented in this encounter Plan of Treatment Not on file documented as of this encounter Visit Diagnoses Not on filedocumented in this encounter Care Teams Folder Machine Relationship Specialty Start Date End Date Clarissa Salmeron MD [address] [facility], [address] [place] [address] PCP - General Internal Medicine 01/06/17 04/13/19 documented as of this encounter
--- OUTSIDE RECORDS SUMMARY | 2024-04-12 15:41 | XMS_ITS | Encounter Summary ---
Author Organization [facility] Address [address], [address] [place] [address] Care Team Providers Care Public Safety Director Name Role Phone Clarissa Salmeron MD Primary Care Provider + Reason for Visit * Reason Comments Physical Exam Encounter Details Date Type Department Care Team (Latest Contact Info) Description 04/07/2017 10:00 AM EDT Office Visit [facility] [address], [address] [place], [place] [id number] Clarissa Salmeron MD [address], [address] [place], [place] [phone] Routine physical examination (Primary Dx); Encounter for gynecological examination without abnormal finding; Chronic left shoulder pain; Episodic tension-type headache, not intractable; Prediabetes; History of gestational diabetes; History of hypertension; Depression screening Social History Tobacco Use Types Packs/Day Years Used Date Smoking Tobacco: Never Tobacco Cessation:Counseling Given: No Sex and Gender Information Value Date Recorded Sex Assigned at Not on file Gender Identity Not on file Sexual Orientation Not on file documented as of this encounter Last Filed Vital Signs Vital Sign Reading Time Taken Comments Blood Pressure 122/80 04/07/2017 10:05 AM EDT Pulse 68 04/07/2017 10:05 AM EDT Temperature 36.7 ??C (98 ??F) 04/07/2017 10:05 AM EDT Respiratory Rate - - Oxygen Saturation 99% 04/07/2017 10:05 AM EDT Inhaled Oxygen Concentration - - Weight 49 kg (108 lb) 04/07/2017 10:05 AM EDT Height 152.4 cm (5') 04/07/2017 10:05 AM EDT Body Mass Index 21.09 04/07/2017 10:05 AM EDT documented in this encounter Progress Notes * Clarissa Salmeron MD - 04/07/2017 10:00 AM EDT Subjective Patient ID: Nena Ingram is a 57 y.o. female. HPI She is here for a physical. 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 She has been going to physical therapy, which has been helping. She wears a sleeve on her leftupper arm, which helps her pain. Her next appointment with Dr. Sousa is next month. She has been noting eye problems and saw Dr. Govea last week. She was given eyedrops. She has noted some improvement, but this has not improved completely. She does not have a follow up visit withhi. She tells me that she has been experiencing headaches a few times per week. She will note this uponwakening, but denies being woken from sleep due to the headache. She does not take any medication for the headaches. This is pressure like and is frontal. No nausea or vomiting with the headaches, she does note photophobia. She denies aura. She will drink water, which helps. She denies numbness, paresthesias, or weakness. She does note numbness in the left arm, which is not new. The following portions of the patient's history were reviewed and updated as appropriate: allergies, current medications, past medical history, past surgical history, past family history, past socialhistory and problem list. Review of Systems Constitutional: Negative for unexpected [...] bleeding and vaginal discharge. Musculoskeletal: Positive for arthralgias. Negative for myalgias. Skin: Negative for rash. Neurological: Positive for numbness and headaches. Negative for dizziness. Light-headedness: left UE. Psychiatric/Behavioral: Negative for dysphoric mood. The patient is not nervous/anxious. Objective Physical Exam Constitutional: No distress. HENT: Head: Normocephalic and atraumatic. Right Ear: Tympanic membrane, external ear and ear canal normal. Left Ear: Tympanic membrane, external ear and ear canal normal. Eyes: Conjunctivae and EOM are normal. Neck: No thyroid mass and no thyromegaly present. Cardiovascular: Normal rate, regular rhythm, normal heart sounds and intact distal pulses. Exam reveals no gallop. No murmur heard. Pulmonary/Chest: Effort normal and breath sounds normal. Right breast exhibits no mass, no nipple discharge, no skin change and no tenderness. Left breast exhibits no mass, no nipple discharge, no skin change and no tenderness. Abdominal: Soft. Bowel sounds are normal. There is no hepatosplenomegaly. There is no tenderness. Genitourinary: Uterus normal. Pelvic exam was performed with patient supine. There is no rash or lesion on the right labia. There is no rash or lesion on the left labia. Cervix exhibits no motion tenderness and no discharge. Right adnexum displays no mass and no tenderness. Left adnexum displays nomass and no tenderness. No vaginal discharge found. Lymphadenopathy: She has no cervical adenopathy. She has no axillary adenopathy. Neurological: She is alert. She has normal strength. No cranial nerve deficit. Skin: Skin is warm and dry. No rash noted. Psychiatric: She has a normal mood and affect. Her speech is normal. Assessment/Plan Diagnoses and all orders for this visit: Routine physical examination - Basic metabolic panel - CBC with Auto Differential - Hepatic function panel - Lipid panel - TSH She is active and eats a healthy diet. She is UTD on her immunizations. Encounter for gynecological examination without abnormal finding - Pap test - HPV 30neg; Future Performed pap smear today. Chronic left shoulder pain She has been noting some improvement with physical therapy and will continue to see Dr. Sousa. Episodic tension-type headache, not intractable Her headaches sound c/w tension headaches. This also could be medication overuse headache as well, but she is only taking ibuprofen at night. She was advised to take ibuprofen for the headaches to see if this helps. She does not have any red flag signs and her neuro exam is reassuring. Prediabetes - Hemoglobin A1c Her last hb a1c was 5.8. Will repeat this today. History of gestational diabetes She has a history of gestational diabetes, which increases her risk for type 2 diabetes. Will checkan a1c today. History of hypertension Her BP is at goal without medications. Depression screening Her PHQ-9 is negative by numbers, but she does seem depressed. She feels that this is due to her current arm symptoms and limitations. She was offered referral to therapy or medications for depression, but declined. She was encouraged to call if she would like to discuss this further. documented in this encounter Plan of Treatment Not on file documented as of this encounter Procedures Procedure Name Priority Date/Time Associated Diagnosis Comments HPV 30NEG Routine 04/07/2017 10:27 PM EDT Encounter for gynecological examination without abnormal finding DO NOT ORDER - PAP TEST Routine 04/07/2017 10:27 PM EDT Encounter for gynecological examination without abnormal finding CBC WITH AUTO DIFFERENTIAL Routine 04/07/2017 8:05 PM EDT Routine physical examination TSH WITH REFLEX Routine 04/07/2017 8:05 PM EDT Routine physical examination HEMOGLOBIN A1C Routine 04/07/2017 8:05 PM EDT Prediabetes HC HEPATIC FUNCTION PANEL Routine 04/07/2017 8:05 PM EDT Routine physical examination LIPID PANEL Routine 04/07/2017 8:05 PM EDT Routine physical examination BASIC METABOLIC PANEL Routine 04/07/2017 8:05 PM EDT Routine physical examination documented in this encounter Results * HPV 30neg (04/07/2017 10:27 PM EDT) HPV mRNA E6/E7 Negative Negative 04/14/2017 3:38 PM EDT [facility] Papthin (ANIMAL CARE PROVIDER, Pap Test - Cx/Endcx) 04/07/2017 10:27 PM EDT 04/07/2017 10:27 PM EDT Clarissa Salmeron MD LAB PATHOLOGY/CY TOLOGY ORDERABLES Performing Organization Address [facility]/State/ZIP Co de Phone Number [facility] [address] [place] [address], * Pap test (04/07/2017 10:27 PM EDT) Interpretation Negative for squamous intraepithelial lesion or malignancy 04/15/2017 7:17 AM EDT [facility] Embedded Images 7 7:17 AM EDT [facility] Case Report Pap Test ?Case: [id number] ? Authorizing Provider: ??Clarissa Salmeron MD ?? Collected: ? 04/07/20172226 ? Ordering Location: ? [facility] ?Received: ?04/07/20177 ? [place] ? First Screen: ?ASIYA Mcgowan(ASCP) ? Specimen: ?Pap Test, Thin Prep, ANIMAL CARE PROVIDER, Pap Test - Cx/Endcx ? 04/15/2017 7:17 AM [facility] Specimen Adequacy Satisfactory for interpretation 04/15/2017 7:17 AM [facility] Endocervical/Tra nsformation Zone Component Present 04/15/2017 7:17 AM [facility] Menstrual Status Post Menopausal 7:17 AM [facility] Clinical Information No previous abnormal 04/15/2017 7:17 AM [facility] Disclaimer This pap test was [...] false negative results. 04/15/2017 7:17 AM EDT [facility] Papthin (ANIMAL CARE PROVIDER, Pap Test - Cx/Endcx) 04/07/2017 10:27 PM EDT 04/07/2017 10:27 PM EDT Clarissa Salmeron MD LAB PATHOLOGY/CY TOLOGY ORDERABLES [facility] [address] [place] [address], * Hemoglobin A1c (04/07/2017 8:05 PM EDT) HBA1C 5.5 4.1 - 6.0 % 04/07/2017 10:13 PM EDT [facility] Blood Venous blood / Unknown Venipuncture / Unknown 04/07/2017 8:05 PM EDT 04/07/2017 8:05 PM EDT Clarissa Salmeron MD LAB BLOOD ORDERA BLES [facility] [address] [place] [address], [place] [phone] * TSH (04/07/2017 8:05 PM EDT) Thyroid Stimulating Hormone 1.520 0.465 - 4.68 uIU/mL 04/07/2017 9:33 PM EDT [facility] Blood Venous blood / Unknown Venipuncture / Unknown 04/07/2017 8:05 PM EDT 04/07/2017 8:05 PM EDT Clarissa Salmeron MD LAB BLOOD ORDERA BLES Performing Organization Address [facility] Co de Phone Number [facility] [address] [place] [address], [place] [phone] * (ABNORMAL) Lipid panel (04/07/2017 8:05 PM EDT) CHOLESTEROL 259(H) <200 mg/dL 04/07/2017 9:01 PM EDT [facility] TRIGLYCERIDES 116 <150 mg/dL 04/07/2017 9:01 PM EDT [facility] CHOLESTEROL LDL 154.8 mg/dL 7 9:01 PM EDT [facility] Comment: LDL Reference Range Optimal - <100 mg/dL Near Optimal, above Optimal - 100-129 mg/dL Borderline High - 130-159 mg/dL High - 160-189 mg/dL Very High - >189 mg/dL The above results should be evaluated in conjunction with accompanying clinical risk factors in the individual patient. References: 2002 NCEP ATP III guideline 2013 ACC/AHA Lipid treatment guideline HDL 81 >40 mg/dL 04/07/2017 9:01 PM EDT [facility] RISK FACTOR 3.2 <4.4 04/07/2017 9:01 PM EDT [facility] Blood Venous blood / Unknown Venipuncture / Unknown 04/07/2017 8:05 PM EDT 04/07/2017 8:05 PM EDT Clarissa Salmeron MD LAB BLOOD ORDERA BLES Performing Organization Address [facility] Co de Phone Number [facility] [address] [place] [address], [place] [phone] * Hepatic function panel (04/07/2017 8:05 PM EDT) Pathologist [facility] Protein, Total 7.4 6.3 - 8.2 g/dL 04/07/2017 9:01 PM EDT [facility] ALBUMIN 4.2 3.5 - 5.0 g/dL 04/07/2017 9:01 PM EDT [facility] Bilirubin Total 0.7 0.2 - 1.3 mg/dL 04/07/2017 9:01 PM EDT [facility] BILIRUBIN DIRECT 0.3 0.0 - 0.4 mg/dL 04/07/2017 9:01 PM EDT [facility] AST (SGOT) 31 15 - 46 U/L 04/07/2017 9:01 PM EDT [facility] ALT 45 13 - 69 U/L 04/07/2017 9:01 PM EDT [facility] ALKALINE PHOSPHATASE 70 38 - 126 U/L 04/07/2017 9:01 PM EDT [facility] Blood Venous blood / Unknown Venipuncture / Unknown 04/07/2017 8:05 PM EDT 04/07/2017 8:05 PM EDT Clarissa Salmeron MD LAB BLOOD ORDERA BLES Performing Organization Address City/[facility]/ZIP Co de Phone Number [facility] [address] [place] [address], [place] [phone] * CBC with Auto Differential (04/07/2017 8:05 PM EDT) Pathologist [facility] WBC 6.89 4.0 - 10.8 10*3/uL 04/07/2017 9:18 PM EDT [facility] nRBC 0 0 - 0 /100 WBCs 04/07/2017 9:18 PM EDT [facility] RBC 4.42 4.20 - 5.40 10*6/uL 04/07/2017 9:18 PM EDT [facility] HGB 13.0 12.0 - 16.0 g/dL 04/07/2017 9:18 PM EDT [facility] HCT 39.8 35.0 - 48.0 % 04/07/2017 9:18 PM EDT [facility] MCV 90.0 81.0 - 99.0 fL 04/07/2017 9:18 PM EDT [facility] MCH 29.4 26.0 - 33.0 pg 04/07/2017 9:18 PM EDT [facility] MCHC 32.7 32.0 - 36.0 g/dL 04/07/2017 9:18 PM EDT [facility] PLT 309 150 - 350 10*3u/L 04/07/2017 9:18 PM EDT [facility] RDW-CV 13.1 11.5 - 14.5 % 04/07/2017 9:18 PM EDT [facility] Segmented % 59.2 30.0 - 85.0 % 04/07/2017 9:18 PM EDT [facility] ABS Neutrophil 4.08 1.5 - 6.5 10*3/uL 04/07/2017 9:18 PM EDT [facility] Lymphocytes % 30.8 15.0 - 50.0 % 04/07/2017 9:18 PM EDT [facility] ABS Lymphocyte 2.12 1.0 - 3.7 10*3u/L 04/07/2017 9:18 PM EDT [facility] Monocytes % 8.0 0.0 - 10.0 % 04/07/2017 9:18 PM EDT [facility] Eosinophils % 1.3 % 04/07/2017 9:18 PM EDT [facility] Basophil % 0.3 0.0 - 2.0 % 04/07/2017 9:18 PM EDT [facility] IMM GRAN 0.4 0.0 - 1.0 % 04/07/2017 9:18 PM T [facility] Blood Venous blood / Unknown Venipuncture / Unknown 04/07/2017 8:05 PM EDT 04/07/2017 8:05 PM EDT Clarissa Salmeron MD LAB BLOOD ORDERA BLES Performing Organization Address City/[facility]/ZIP Co de Phone Number [facility] [address] [place] [address], * (ABNORMAL) Basic metabolic panel (04/07/2017 8:05 PM EDT) Sodium 142 137 - 145 mmol/L 04/07/2017 9:01 PM EDT [facility] Potassium 3.9 3.5 - 5.1 mmol/L 04/07/2017 9:01 PM EDT [facility] CHLORIDE 104 98 - 107 mmol/L 04/07/2017 9:01 PM EDT [facility] CARBON DIOXIDE, TOTAL 26.0 22.0 - 30.0 mmol/L 04/07/2017 9:01 PM EDT [facility] ANION GAP 12.0 6 - 14 04/07/2017 9:01 PM EDT [facility] GLUCOSE 101(H) 70 - 99 mg/dL 04/07/2017 9:01 PM EDT [facility] BUN 9 7 - 17 mg/dL 04/07/2017 9:01 PM EDT [facility] CREATININE 0.6 0.5 - 1.0 mg/dL 04/07/2017 9:01 PM EDT [facility] GFR >60 04/07/2017 9:01 PM EDT [facility] Comment: eGFR Reference Range: ? > 60 mL/min/1.73 Sq meter In Americans the eGFR should be multiplied by 1.212. CALCIUM 9.2 8.3 - 10.3 mg/dL 04/07/2017 9:01 PM EDT [facility] Blood Venous blood / Unknown Venipuncture / Unknown 04/07/2017 8:05 PM EDT 04/07/2017 8:05 PM EDT Clarissa Salmeron MD LAB BLOOD ORDERA BLES Performing Organization Address City/[facility]/ZIP Co de Phone Number [facility] [address] [place] [address], documented in this encounter Visit Diagnoses Diagnosis Routine physical examination- Primary Routine general medical examination at a health care facility Encounter for gynecological examination without abnormal finding Chronic left shoulder pain Pain in joint, shoulder region Episodic tension-type headache, not intractable Prediabetes Other abnormal glucose History of gestational diabetes Personal history of other genital system and obstetric disorders History of hypertension Personal history of other diseases of circulatory system Depression screening documented in this encounter Care Teams Public Safety Director Relationship Specialty Start Date End Date Clarissa Salmeron MD [address], [address] [place] [address] PCP - General Internal Medicine 01/06/17 04/13/19 documented as of this encounter
--- OUTSIDE RECORDS SUMMARY | 2024-04-12 15:41 | XMS_ITS | Encounter Summary ---
Author Organization [facility] Address [address], [address] [place] [address] Care Team Providers Care Experimental Welder Name Role Phone Clarissa Salmeron MD Primary Care Provider + Encounter Details Date Type Department Care Team (Late st Contact Info) Description 01/23/2017 Scan Document - View in Chart [facility] [address], [address] [place], [place] [phone] Clarissa Salmeron MD [address], [address] [place], [place] [phone] Social History Tobacco Use Types Packs/Day Years Used Date Smoking Tobacco: Never Sex and Gender Information Value Date Recorded Sex Assigned at Not on file Gender Identity Not on file Sexual Orientation Not on file documented as of this encounter Plan of Treatment Not on file documented as of this encounter Visit Diagnoses Not on filedocumented in this encounter Care Teams Experimental Welder Relationship Specialty Start Date End Date Clarissa Salmeron MD [address], [address] [place], [place] [phone] PCP - General Internal Medicine 01/06/17 04/13/19 documented as of this encounter
--- OUTSIDE RECORDS SUMMARY | 2024-04-12 15:41 | XMS_ITS | Encounter Summary ---
Author Organization [facility] Address [address] [facility], [address] [place] [address] Care Team Providers Care Pre K Special Education Teacher Name Role Phone Clarissa Salmeron MD Primary Care Provider + Encounter Details Date Type Department Care Team (Late st Contact Info) Description 01/14/2017 Scan Document - View in Chart [facility] [address], [address] [place], [place] [phone] Clarissa Salmeron MD [address] [facility], [address] [place], [place] [phone] Social History Tobacco Use Types Packs/Day Years Used Date Smoking Tobacco: Never Sex and Gender Information Value Date Recorded Sex Assigned at Not on file Gender Identity Not on file Sexual Orientation Not on file documented as of this encounter Plan of Treatment Not on file documented as of this encounter Visit Diagnoses Not on filedocumented in this encounter Care Teams Pre K Special Education Teacher Relationship Specialty Start Date End Date Clarissa Salmeron MD [address] [facility], [address] [place], [place] [phone] PCP - General Internal Medicine 01/06/17 04/13/19 documented as of this encounter
--- OUTSIDE RECORDS SUMMARY | 2024-04-12 15:41 | XMS_ITS | Encounter Summary ---
Author Organization [facility] Address [address] [facility] [address] [place] [address] Care Team Providers Care Engineering Drawings Checker Name Role Phone Clarissa Salmeron MD Primary Care Provider + Encounter Details Date Type Department Care Team (Late st Contact Info) Description 01/11/2017 Orders Only [facility] [address] [place] [address] Mary Campos MD [address] [place] [address] Social History Tobacco Use Types Packs/Day Years Used Date Smoking Tobacco: Never Sex and Gender Information Value Date Recorded Sex Assigned at Not on file Gender Identity Not on file Sexual Orientation Not on file documented as of this encounter Plan of Treatment Not on file documented as of this encounter Procedures Procedure Name Priority Date/Time Associated Diagnosis Comments XR CHEST 2 VW Routine 01/11/2017 12:14 PM EDT CBC WITH AUTO DIFFERENTIAL Routine 01/11/2017 12:13 PM EDT documented in this encounter Results * X-ray Chest 2 Views (01/11/2017 12:14 PM EDT) Anatomical Region Laterality Modality Body, Chest Radiographic Radha ging 01/11/2017 12:1 4 PM EDT Impressions 01/11/2017 12:36 PM EDT ? IMPRESSION: ? Normal chest. ? Dictated: 01/11/2017 12:31 PM ? Report ID: [id number] ?-- REPORT SIGNED IN OTHER VENDOR SYSTEM 01/11/2017 (1231) -- ?Reported And Signed By: PARTHA PHAM M.D. ?CC: Clarissa Salmeron M.D. ? PAGE 1 ? Signed Report ?CC: Clarissa Salmeron M.D. ? PAGE 1 ? Signed Report ? Radiologist SHOM Narrative 01/11/2017 12:36 PM EDT ? EDGAR INGRAM ? F ? [id number] ? Mary Campos M.D. ?REG ER ?ER ? [id number] ? Mary Campos M.D. ? 1960 56 ?01/11/2017 ? Clinical History: : Chest Pain ? EXAM# ? TYPE/EXAM ? RESULT ? [id number] RAD/CHEST PA ?? LATERAL ? RESPONSIBLE UNDERWRITING TECHNICIAN: ? Partha Pham M.D. - RIS ID: [id number] ? EXAMINATION: ? CHEST PA ?? LATERAL ? CLINICAL INDICATION: ? Chest pain. ??Abnormal EKG. ? TECHNIQUE: ? Two views of the chest. ? COMPARISON: ? 10/30/2015. ? FINDINGS: ? The heart, mediastinum, hilar structures, lungs and pleura are ? normal. ??No significant change since 10/30/2015. ? IMPRESSION: ? Normal chest. ? Dictated: 01/11/2017 12:31 PM ? Report ID: [id number] ?-- REPORT SIGNED IN OTHER VENDOR SYSTEM 01/11/2017 (1231) -- ?Reported And Signed By: PARTHA PHAM M.D. ?CC: Clarissa Salmeron M.D. ? PAGE 1 ? Signed Report ?CC: Clarissa Salmeron M.D. ? PAGE 1 ? Signed Report ? Radiologist AVA Procedure Note Partha Pham MD - 01/11/2017 EDGAR INGRAM F [id number] Beth Reardon,Mary BEATTY ER [id number] Beth Reardon,Mary 1960 56 01/11/2017 Clinical History: : Chest Pain EXAM# TYPE/EXAM RESULT [id number] RAD/CHEST PA LATERAL RESPONSIBLE UNDERWRITING TECHNICIAN: Partha Pham M.D. - RIS ID: [id number] EXAMINATION: CHEST PA LATERAL CLINICAL INDICATION: Chest pain. Abnormal EKG. TECHNIQUE: Two views of the chest. COMPARISON: 10/30/2015. FINDINGS: The heart, mediastinum, hilar structures, lungs and pleura are normal. No significant change since 10/30/2015. IMPRESSION: Normal chest. Dictated: 01/11/2017 12:31 PM Report ID: [id number] -- REPORT SIGNED IN OTHER VENDOR SYSTEM 01/11/2017 (1231) -- Reported And Signed By: PARTHA PHAM M.D. CC: Clarissa Salmeron M.D. PAGE 1 Signed Report CC: Clarissa Salmeron M.D. PAGE 1 Signed Report Mundo ESCALANTE IMPRESSION: IMPRESSION: Normal chest. Dictated: 01/11/2017 12:31 PM Report ID: [id number] -- REPORT SIGNED IN OTHER VENDOR SYSTEM 01/11/2017 (1231) -- Reported And Signed By: PARTHA PHAM M.D. CC: Clarissa Salmeron M.D. PAGE 1 Signed Report CC: Clarissa Salmeron M.D. PAGE 1 Signed Report Radiologist AVA Mary Campos MD IMG XR PROCEDURES * (ABNORMAL) CBC auto differential (01/11/2017 12:13 PM EDT) WBC 12.81(H) 4.0 - 10.80 10(9)/L [facility] RBC 4.90 4.20 - 5.40 10(12)/L [facility] Hemoglobin 14.3 12.0 - 16.0 g/dL [facility] Hematocrit 42.1 35 - 48 % [facility] MCV 85.9 81 - 99 fL [facility] MCH 29.2 26.0 - 33.0 pg [facility] MCHC 34.0 32.0 - 36.0 g/dL [facility] Platelets 294 150 - 350 10(9)/L [facility] RDW-CV 12.7 11.5 - 14.5 % [facility] Neutrophils Relative 71.8 30.0 - 85.0 % [facility] Neutrophils Absolute 9.19(H) 1.5 - 6.5 10(9)/L [facility] Lymphocytes Relative 20.1 15.0 - 50.0 % [facility] Lymphocytes Absolute 2.58 1.0 - 3.7 10(9)/L [facility] Monocytes Relative 7.4 0.0 - 10.0 % [facility] Eosinophils Relative 0.2 0.0 - 5.0 % [facility] Basophils Relative 0.2 0.0 - 2.0 % [facility] Immature Gran % 0.3 0.0 - 1.0 % [facility] Comment: Immature granulocyte (IG %) % includes promyelocytes, metamyelocytes and myelocytes, but does not include bands. Bands are included in the neutrophil count. An IG% greater than 1% represents a left shift, and may be associated with (but not limited to) trauma, sepsis, infection, inflammation, myeloproliferative disorders and some medications. Immature granulocyte (IG %) % includes promyelocytes, metamyelocytes and myelocytes, but does not include bands. Bands are included in the neutrophil count. An IG% greater than 1% represents a left shift, and may be associated with (but not limited to) trauma, sepsis, infection, inflammation, myeloproliferative disorders and some medications. 01/11/2017 12:1 3 PM EDT 01/11/2017 12:13 PM EDT Mary Campos MD LAB BLOOD ORDERABLES [facility] [address] [place] [address], documented in this encounter Visit Diagnoses Not on filedocumented in this encounter Care Teams Engineering Drawings Checker Relationship Specialty Start Date End Date Clarissa Salmeron MD [address] [facility], [address] [place] [address] PCP - General Internal Medicine 01/06/17 04/13/19 documented as of this encounter
--- OUTSIDE RECORDS SUMMARY | 2024-04-12 15:41 | XMS_ITS | Encounter Summary ---
Author Organization [facility] Address [address] [facility] eet [facility], [address] [place] [address] Care Team Providers Care Email Marketing Processor Name Role Phone Clarissa Salmeron MD Primary Care Provider + Encounter Details Date Type Department Care Team (Late st Contact Info) Description 03/18/2017 Scan Document - View in Chart [facility] [address] [facility], [address] [place], [place] [phone] Clarissa Salmeron MD [address] [facility], [address] [place], [place] [phone] Social History Tobacco Use Types Packs/Day Years Used Date Smoking Tobacco: Never Sex and Gender Information Value Date Recorded Sex Assigned at Not on file Gender Identity Not on file Sexual Orientation Not on file documented as of this encounter Plan of Treatment Not on file documented as of this encounter Visit Diagnoses Not on filedocumented in this encounter Care Teams Email Marketing Processor Relationship Specialty Start Date End Date Clarissa Salmeron MD [address] [facility], [address] [place], [place] [phone] PCP - General Internal Medicine 01/06/17 04/13/19 documented as of this encounter
--- OUTSIDE RECORDS SUMMARY | 2024-04-12 15:41 | XMS_ITS | Encounter Summary ---
Author Organization [facility] Address [address] [facility], [address] [place] [address] Care Team Providers Care Real Time Analyst Name Role Phone Clarissa Salmeron MD Primary Care Provider + Reason for Visit * Specialty (Routine) - Closed Specialty Diagnoses / Procedures Referred By Contflako t Referred To Contact Physical Therapy Diagnoses Left shoulder pain Procedures PHYSICAL THERAPY Clarissa Salmeron MD [address] [facility], [address] [place] [address] [facility] [address] [facility], [address] [place] [phone] Referral ID Status Reason Start Date Expiration Date Visits Re quested Visits Authorized [id number] Closed 04/15/2017 05/23/2017 6 6 Encounter Details Date Type Department Care Team (Late st Contact Info) Description 04/27/2017 9:30 AM EDT Rehab [facility] Physical Therapy [address] [facility], [address] [place] [address] Clarissa Salmeron MD [address] [facility], [address] [place] [phone] Manfred Mejia, FRANCISCO Adhesive bursitis of left shoulder (Primary Dx) Social History Tobacco Use Types Packs/Day Years Used Date Smoking Tobacco: Never Sex and Gender Information Value Date Recorded Sex Assigned at Not on file Gender Identity Not on file Sexual Orientation Not on file documented as of this encounter Progress Notes * Manfred Mejia, PT - 04/27/2017 9:30 AM EDT Rehabilitation Services Physical Therapy [address] [facility], [address] [facility] [phone] PROGRESS NOTE Nena Ingram is a 57 y.o. female. Subjective Pain the same Objective MHP codmans Wall wlaking Cane ex ice Assessment/Plan Low tolerance ROM Manfred Mejia, PT 04/27/2017 documented in this encounter Plan of Treatment Not on file documented as of this encounter Visit Diagnoses Diagnosis Adhesive bursitis of left shoulder- Primary documented in this encounter Care Teams Real Time Analyst Relationship Specialty Start Date End Date Clarissa Salmeron MD [address] [facility], [address] [place] [address] PCP - General Internal Medicine 01/06/17 04/13/19 documented as of this encounter
--- OUTSIDE RECORDS SUMMARY | 2024-04-12 15:41 | XMS_ITS | Encounter Summary ---
Author Organization [facility] Address [address] [facility], [address] [place] [address] Care Team Providers Care Fitness Director Name Role Phone Clarissa Salmeron MD Primary Care Provider + Reason for Visit * Specialty (Routine) - Closed Specialty Diagnoses / Procedures Referred By Contac t Referred To Contact Physical Therapy Diagnoses Left shoulder pain Procedures PHYSICAL THERAPY Clarissa Salmeron MD [address] [facility], [address] [place] [address] [facility] [address] [facility], [address] [place] [phone] Referral ID Status Reason Start Date Expiration Date Visits Re quested Visits Authorized [id number] Closed 04/15/2017 05/23/2017 6 6 Encounter Details Date Type Department Care Team (Late st Contact Info) Description 04/15/2017 12:30 PM EDT Rehab [facility] Physical Therapy [address] [facility], [address] [place] [address] Clarissa Salmeron MD [address] [facility], [address] [place] [phone] Manfred Mejia, FRANCISCO Adhesive bursitis of left shoulder (Primary Dx) Social History Tobacco Use Types Packs/Day Years Used Date Smoking Tobacco: Never Sex and Gender Information Value Date Recorded Sex Assigned at Not on file Gender Identity Not on file Sexual Orientation Not on file documented as of this encounter Progress Notes * Manfred Mejia, PT - 04/15/2017 12:30 PM EDT Rehabilitation Services Physical Therapy [address] [facility], [address] [facility] [phone] PROGRESS NOTE Nena Ingram is a 57 y.o. female. Subjective Some numbness today Objective MHP codmans Wall wlaking Cane ex Assessment/Plan Low tolerance ROM Manfred Mejia, PT 04/15/2017 documented in this encounter Plan of Treatment Not on file documented as of this encounter Visit Diagnoses Diagnosis Adhesive bursitis of left shoulder- Primary documented in this encounter Care Teams Fitness Director Relationship Specialty Start Date End Date Clarissa Salmeron MD [address] [facility], [address] [place] [address] PCP - General Internal Medicine 01/06/17 04/13/19 documented as of this encounter
--- OUTSIDE RECORDS SUMMARY | 2024-04-12 15:41 | XMS_ITS | Encounter Summary ---
Author Organization [facility] Address [address] [facility], [address] [place] [address] Care Team Providers Care Street Cleaner Name Role Phone Clarissa Salmeron MD Primary Care Provider + Encounter Details Date Type Department Care Team (Late st Contact Info) Description 01/20/2017 Telephone [facility] [address] [facility], [address] [place] [address] Clarissa Salmeron MD [address] [facility], [address] [place] [address] Social History Tobacco Use Types Packs/Day Years Used Date Smoking Tobacco: Never Sex and Gender Information Value Date Recorded Sex Assigned at Not on file Gender Identity Not on file Sexual Orientation Not on file documented as of this encounter Miscellaneous Notes * Telephone Encounter - Kisha Robles - 01/20/2017 9:00 AM EDT Patient had to cancel appt today. Rescheduled for 02/09 but said she wants you to call her. She is still having pain. documented in this encounter Plan of Treatment Not on file documented as of this encounter Visit Diagnoses Not on filedocumented in this encounter Care Teams Street Cleaner Relationship Specialty Start Date End Date Clarissa Salmeron MD [address] [facility], [address] [place] [address] PCP - General Internal Medicine 01/06/17 04/13/19 documented as of this encounter
--- OUTSIDE RECORDS SUMMARY | 2024-04-12 15:41 | XMS_ITS | Encounter Summary ---
Author Organization [facility] Address [address] [facility], [address] [place] [address] Care Team Providers Care Dyeing Machine Tender Name Role Phone Unavailable Primary Care Provider Unavailabl e Encounter Details Date Type Department Care Team (Late st Contact Info) Description 11/05/2016 Telephone [facility] [address] [facility], [address] [place], [place] [phone] Clarissa Salmeron MD 300 [facility], [address] [place], [place] [phone] Social History Tobacco Use Types Packs/Day Years Used Date Smoking Tobacco: Never Sex and Gender Information Value Date Recorded Sex Assigned at Not on file Gender Identity Not on file Sexual Orientation Not on file documented as of this encounter Miscellaneous Notes * Telephone Encounter - Pamela Barrera MA - 11/19/2016 1:27 PM EST Tried to call pt again to give her the time and date of the stress test. Pt did not answer and the mailbox is full. * Telephone Encounter - Pamela Barrera MA - 11/05/2016 9:45 AM EST Booked stress test with echo for pt on 12/01/16 @ 7:30 AM. Unable to leave pt a message due to her mailbox full. documented in this encounter Plan of Treatment Not on file documented as of this encounter Visit Diagnoses Not on filedocumented in this encounter
--- OUTSIDE RECORDS SUMMARY | 2024-04-12 15:41 | XMS_ITS | Encounter Summary ---
Author Organization [facility] Address [address] [facility] eet [facility], [address] [place] [address] Care Team Providers Care Level Vial Grinder Name Role Phone Clarissa Salmeron MD Primary Care Provider + Reason for Visit * Specialty (Routine) - Closed Specialty Diagnoses / Procedures Referred By Contac t Referred To Contact Physical Therapy Diagnoses Adhesive capsulitis of left shoulder Procedures PT [facility] [place] [address] [place] [address], [address] [phone] [place] [address] [address] [facility], [address] [address] Referral ID Status Reason Start Date Expiration Date Visits Re quested Visits Authorized [id number] Closed 01/23/2017 04/10/2017 7 7 Encounter Details Date Type Department Care Team ([facility] st Contact Info) Description 04/01/2017 1:30 PM EDT Rehab [facility] Physical Therapy [address] [facility], [address] [address] Abimael Sousa MD [address] [place], [place] [phone] Manfred Mejia, FRANCIS[place] Adhesive bursitis of left shoulder (Primary Dx) Social History Tobacco Use Types Packs/Day Years Used Date Smoking Tobacco: Never Sex and Gender Information Value Date Recorded Sex Assigned at Not on file Gender Identity Not on file Sexual Orientation Not on file documented as of this encounter Progress Notes * Manfred Mejia, PT - 04/01/2017 1:30 PM EDT Rehabilitation Services Physical Therapy [address] [facility], [address] [facility] [phone] PROGRESS NOTE Nena Ingram is a 57 y.o. female. Subjective pain about the same, returned to work light duty Doing exercises at home Pain 5/10 Objective MHP AROM flexion 105 ABD 150 ER 50 IR L4 Strength flexion 2/5, ABD 2/5 Func: difficulty washing hair, fastening bra Assessment/Plan Pt limited ROM, weakness, pain and decrease use UE PT 1/week for 6 weeks Manfred Mejia, PT 04/01/2017 documented in this encounter Plan of Treatment Not on file documented as of this encounter Visit Diagnoses Diagnosis Adhesive bursitis of left shoulder- Primary documented in this encounter Care Teams Level Vial Grinder Relationship Specialty Start Date End Date Clarissa Salmeron MD [address] [facility], [address] [place] [address] PCP - General Internal Medicine 01/06/17 04/13/19 documented as of this encounter
--- OUTSIDE RECORDS SUMMARY | 2024-04-12 15:41 | XMS_ITS | Encounter Summary ---
Author Organization [facility] Address [address] [facility], [address] [place] [address] Care Team Providers Care Drawbridge Operator Name Role Phone Clarissa Salmeron MD Primary Care Provider + Reason for Visit * Reason Onset Date Comments call back 01/12/2017 Encounter Details Date Type Department Care Team (Late st Contact Info) Description 01/12/2017 Telephone [facility] [address] [facility], [address] [place], [place] [phone] Clarissa Salmeron MD [address] [facility], [address] [place] [address] call back Social History Tobacco Use Types Packs/Day Years Used Date Smoking Tobacco: Never Sex and Gender Information Value Date Recorded Sex Assigned at Not on file Gender Identity Not on file Sexual Orientation Not on file documented as of this encounter Miscellaneous Notes * Telephone Encounter - Clarissa Salmeron MD - 01/19/2017 9:51 PM EDT Noted, thank you * Telephone Encounter - Fany Espinoza NP - 01/19/2017 4:19 PM EDT Yumi from pulmonary called and said pt had been calling orthopedics and our office and had not heard back. Pt reported her arm was swollen, red and hot and wanted call back. I spoke to pt. She notesshe had an injection for shoulder bursitis but within the last day has swelling, warmth, redness onher bicep. No fever or chills. I discussed to be seen today to get it checked out. Pt will try to come to [facility] today or go to urgent care near her based on her transportation options. * Telephone Encounter - Clarissa Salmeron MD - 01/19/2017 11:29 AM EDT Did she call her orthopedist? * Telephone Encounter - Anjana Simon - 01/19/2017 11:20 AM EDT Pt called instating her arm is not getting any better, its painful and swollen she cant do much andalso is still out of work. She would like a call back. * Telephone Encounter - Clarissa Salmeron MD - 01/12/2017 1:29 PM EDT She developed severe arm pain on Thursday, so she went to the [facility], who sent her to the ED. She was told that she has tendonitis in the shoulder. Her EKG was abnormal again, and she had a normal CXR andneg troponin. She was told to see Dr. Mars in 2 days, and will see Dr. Sousa the same day. Her stress test is on 02/13. * Telephone Encounter - Clarissa Salmeron MD - 01/12/2017 12:38 PM EDT Called patient, left message * Telephone Encounter - Siri Crane - 01/12/2017 11:33 AM EDT Pt returned your call. * Telephone Encounter - Clarissa Salmeron MD - 01/12/2017 10:53 AM EDT Called patient, left message * Telephone Encounter - Siri Crane - 01/12/2017 9:38 AM EDT Pt was in the ER yesterday with left arm pain, they did an EKG and there was an in normality and ptwould like to discuss this with you. documented in this encounter Plan of Treatment Not on file documented as of this encounter Visit Diagnoses Not on filedocumented in this encounter Care Teams Drawbridge Operator Relationship Specialty Start Date End Date Clarissa Salmeron MD [address] [place] [address], [address] [place] [address] PCP - General Internal Medicine 01/06/17 04/13/19 documented as of this encounter
--- OUTSIDE RECORDS SUMMARY | 2024-04-12 15:41 | XMS_ITS | Encounter Summary ---
Author Organization [facility] Address 330 [facility] eet [facility], [address] [place] [address] Care Team Providers Care Intermodal Owner Operator Truck Driver Name Role Phone Clarissa Salmeron MD Primary Care Provider + Encounter Details Date Type Department Care Team (Late st Contact Info) Description 12/26/2016 Scan Document - View in Chart [facility] Associates [address] [facility], [address] [place], [place] [phone] Clarissa Salmeron MD [address] [facility], [address] [place], [place] [phone] Social History Tobacco Use Types Packs/Day Years Used Date Smoking Tobacco: Never Sex and Gender Information Value Date Recorded Sex Assigned at Not on file Gender Identity Not on file Sexual Orientation Not on file documented as of this encounter Plan of Treatment Not on file documented as of this encounter Visit Diagnoses Not on filedocumented in this encounter Care Teams Intermodal Owner Operator Truck Driver Relationship Specialty Start Date End Date Clarissa Salmeron MD [address] [facility], [address] [place], [place] [address] PCP - General Internal Medicine 01/06/17 04/13/19 documented as of this encounter
--- OUTSIDE RECORDS SUMMARY | 2024-04-12 15:41 | XMS_ITS | Encounter Summary ---
Author Organization [facility] Address [address] [facility], [address] [place] [address] Care Team Providers Care Shipping Track Supervisor Name Role Phone Clarissa Salmeron MD Primary Care Provider + Reason for Visit * Specialty (Routine) - Closed Specialty Diagnoses / Procedures Referred By Contac t Referred To Contact Physical Therapy Diagnoses Adhesive capsulitis of left shoulder Procedures PT [facility] [place] [address] [place] [address], [address] [phone] [facility] [address] [facility], [address] [address] Referral ID Status Reason Start Date Expiration Date Visits Re quested Visits Authorized [id number] Closed 01/23/2017 04/10/2017 7 7 Encounter Details Date Type Department Care Team ([facility] st Contact Info) Description 04/09/2017 11:30 AM EDT Rehab [facility] Physical Therapy [address] [facility], [address] [address] Abimael Sousa MD 300 [place], [place] [phone] Manfred Mejia, FRANCIS[place] Adhesive bursitis of left shoulder (Primary Dx) Social History Tobacco Use Types Packs/Day Years Used Date Smoking Tobacco: Never Sex and Gender Information Value Date Recorded Sex Assigned at Not on file Gender Identity Not on file Sexual Orientation Not on file documented as of this encounter Progress Notes * Manfred Mejia, PT - 04/09/2017 11:30 AM EDT Rehabilitation Services Physical Therapy [address] [facility], [address] [facility] [phone] PROGRESS NOTE Nena Ingram is a 57 y.o. female. Subjective pain about the same, returned to work light duty PT co swelling B shld's Pain 5/10 Objective MHP AROM flexion 105 ABD 150 ER 50 IR L4 Strength flexion 2/5, ABD 2/5 Func: difficulty washing hair, fastening bra Assessment/Plan Pt limited ROM, weakness, pain and decrease use UE PT 1/week for 6 weeks Manfred Mejia, PT 04/09/2017 documented in this encounter Plan of Treatment Not on file documented as of this encounter Visit Diagnoses Diagnosis Adhesive bursitis of left shoulder- Primary documented in this encounter Care Teams Shipping Track Supervisor Relationship Specialty Start Date End Date Clarissa Salmeron MD [address] [facility], [address] [place] [address] PCP - General Internal Medicine 01/06/17 04/13/19 documented as of this encounter
--- OUTSIDE RECORDS SUMMARY | 2024-04-12 15:41 | XMS_ITS | Encounter Summary ---
Author Organization [facility] [place] Address [address] [facility], [address] [place] [address] Care Team Providers Care Account Executive Healthcare Name Role Phone Clarissa Salmeron MD Primary Care Provider + Reason for Referral * Diagnostic Imaging (Routine) - Closed Specialty Diagnoses / Procedures Referred By Contac t Referred To Contact Radiology Diagnoses Shoulder pain, left Procedures MRI Shoulder Left without Contrast Abimael Sousa MD [address] [place] [address] Referral ID Status Reason Start Date Expiration Date Visits Re quested Visits Authorized [id number] Closed 04/29/2017 10/26/2017 1 1 Encounter Details Date Type Department Care Team (Late st Contact Info) Description 04/29/2017 Ancillary Orders [facility] MRI at [address] [id number] Abimael Sousa MD [address] [place] [address] Shoulder pain, left Social History Tobacco Use Types Packs/Day Years Used Date Smoking Tobacco: Never Sex and Gender Information Value Date Recorded Sex Assigned at Not on file Gender Identity Not on file Sexual Orientation Not on file documented as of this encounter Plan of Treatment Scheduled Orders Name Type Priority Associated Diagnoses Orde r Schedule MRI Shoulder Left without Contrast Imaging Routine Shoulder pain, left Expected: 04/29/2017, Expires: 04/29/2018 documented as of this encounter Visit Diagnoses Diagnosis Shoulder pain, left Pain in joint, shoulder region documented in this encounter Care Teams Account Executive Healthcare Relationship Specialty Start Date End Date Clarissa Salmeron MD [address] [facility], [address] [place] [phone] PCP - General Internal Medicine 01/06/17 04/13/19 documented as of this encounter
[2024-04-12 20:25] LABS: ALT 33 U/L (14-59); AST 19 U/L (15-37); Alkaline Phosphatase 83 U/L (46-116); Anion Gap 9.9 mmol/L (3-11); BUN 13 mg/dL (7-18); Bilirubin, Total 0.36 mg/dL (0.2-1.0); CO2 27.1 mmol/L (21.0-32.0); CREATININE 0.7 mg/dL (0.55-1.02); Calcium 9.4 mg/dL (8.5-10.1); Calculated LDL 186 mg/dL (<100); Chloride 105 mmol/L (98-107); Cholesterol 290 mg/dL (<200); Estimated GFR 97.12 (mL/min/1.73m2); Glucose 120 mg/dL (74-106); HDL Cholesterol 81 mg/dL (40-60); Potassium 4.2 mmol/L (3.5-5.1); Sodium 142 mmol/L (136-145); Total Protein 7.5 g/dL (6.4-8.2); Triglyceride 118 mg/dL (<150)
== END 2024-04-12 15:39 | disposition home or self-care (01) ==
LOC: NCHCN 15:38
PROVIDERS: Visit Provider Nurse Practitioner Family
DX: I10 Essential (primary) hypertension (principal); R73.03 Prediabetes; Z13.6 Encounter for screening for cardiovascular disorders
CPT/HCPCS: 80053; 80061; 83036

== ENCOUNTER 2024-07-07 00:42 | Outpatient (CLI) | payer MEDICAID, SELFPAY ==
--- NOTE | 2024-07-07 | DI.MAMMO_ITS ---
Exam(s) MAMMO SCREENING EXAM: MAMMO SCREENING CLINICAL HISTORY: Screening, Z12.31 TECHNIQUE: Bilateral full field digital CC and MLO mammographic images were obtained with 3D tomosyn thesis and utilizing computer aided detection (CAD). COMPARISON: Available for comparison. FINDINGS: Masses/Architectural Distortion: None seen. Microcalcifications: No suspicious pleomorphic-type are seen. Skin Thickening/Nipple Retraction: None. IMPRESSION: 1. No significant interval change with no specific features of malignancy noted. 2. Unless there is more urgent need, screening mammography is recommended, as per [employer] guidelines. BI-RADS Category 1 - Negative Breast Density - Category B - Scattered areas of fibroglandular density Breast density category C or D implies that the patient has dense breast tissue. Dense breast tissue is very common and is not abnormal but dense breast tissue can make it harder to find cancer on a ma mmogram. Also, dense breast tissue may increase their breast cancer risk. This information about the result of the mammogram report was provided to the patient to raise their awareness. Use this report when you speak with the patient about their risks for breast cancer, which includes their family hist ory. At that time, you may recommend for more screening tests (Ultrasound or MRI) as they might be us eful based on their risk. A negative radiographic report should not delay biopsy if a dominant or clinically suspicious mass is present. Up to ten percent of cancers are not identified on mammography. A negative report may reinforce clinical impression. Adenosis and dense breasts may obscure an underlying neoplasm. False positive reports average 6 to 10%. Patient will receive a letter notifying them of these results.
== END 2024-07-07 01:02 ==
LOC: DI 00:42
PROVIDERS: Visit Provider Nurse Practitioner Family
DX: Z12.31 Encounter for screening mammogram for malignant neoplasm of breast (principal)
CPT/HCPCS: 77063; 77067

== ENCOUNTER 2024-08-11 14:58 | Emergency (ER) | payer MEDICAID, SELFPAY ==
[2024-08-11] VITALS (31 sets, daily range): BP systolic 160–251; BP diastolic 72–102; PULSE 57–98; RESP 15–25; TEMP 36.9; O2SAT 94–100
--- NOTE | 2024-08-11 15:00 | RT.EKG_ITS ---
APPROVED REPORT Exam: Resting ECG Reason for Exam: Chest Pain Patient Location: E HR:79 bpm ECG Measurements Heart Rate 79 AXIS CO 122 P 42 QRSd 108 QRS 61 QT 477 T 118 QTc 549 Conclusion Sinus rhythm...normal P axis, V-rate 60- 99 Prolonged QT interval...QTc >500mS
--- NOTE | 2024-08-11 15:15 | DI.CT_ITS ---
Exam(s) CT THORAX ABD/PEL CTA EXAM: CT THORAX ABD/PEL CTA CLINICAL HISTORY: chest pain radiating to the back. TECHNIQUE: Imaging Protocol: Axial CT angiography was performed with multi-slice acquisition and m ulti-planar and/or 3D reconstructions. CONTRAST MATERIAL: Intravenous: Omnipaque 350 Contrast volume:65 mL Oral: no COMPARISON: No exams were available for comparison FINDINGS: CHEST: Pulmonary Arteries: No evidence of filling defect to suggest pulmonary emboli. Tracheobronchial tree: Patent where visualized. Mediastinum and Lissy: No dominant adenopathy or fluid collection. Pulmonary parenchyma: No consolidation or dominant measurable mass. Mild scarring at right lung apex. Pleura: No effusion or pneumothorax. Heart: The heart is not dilated. Mild coronary artery calcifications are seen. Aorta: Thoracic aorta non-dilated. Mild atherosclerotic changes at the arch. Bones: Unremarkable for age Tubes, Catheters, and Lines: None ABDOMEN AND PELVIS: Abdomen: Celiac axis/mesenteric arteries: No evidence of occlusion or significant stenosis. Renal Arteries: No evidence of occlusion or significant stenosis. There is a single renal artery per fusing each kidney. Aorta: No evidence of occlusion or significant stenosis. No aneurysm or dissection. Mild atheroscl erotic changes. NAPOLEON patent. Pelvis: Iliac Arteries: No evidence of occlusion or significant stenosis. Common Femoral Arteries: No evidence of occlusion or significant stenosis. ABDOMEN: Liver: Normal density. No measurable mass. Gallbladder and Biliary Tract: No radiodense calculus or dilation. Pancreas: Normal density, no abnormal calcifications or inflammatory process. Spleen: Normal. Adrenals: No masses seen. Kidneys: Normal size, contour and axis. No radiodense stones or obstructive uropathy. No masses seen. Bowel: No obstruction or bowel wall thickening. Appendix is unremarkable. Normal quantity of stool. Peritoneal Cavity: No ascites, collection or mesenteric inflammatory response. Lymph Nodes: Within normal limits. Bones: Unremarkable for age. Soft Tissues: Unremarkable. PELVIS: Bladder: Mildly distended. No gross wall thickening. Reproductive Organs: Unremarkable as visualized. Lymph Nodes: Within normal limits. Bones: Within normal limits for age. IMPRESSION: No acute abnormality in the chest, abdomen or pelvis. There is there are mild atherosclerotic changes involving the thoracic and abdominal aorta. No signi ficant stenosis of branch vessels. RADIATION DOSE DELIVERED: Total DLP DATA REPOSITORY: All CT scans at this facility are submitted to the National Radiology Data Registry (NRDR) Dose Index Registry (DIR) with the [employer] (A[employer]). RADIATION OPTIMIZATION: All CT scans at this facility use at least one of these dose optimization te chniques: automated exposure control; mA and/or kV adjustment per patient size (includes targeted exa ms where dose is matched to clinical indication); or iterative reconstruction.
--- NOTE | 2024-08-11 15:20 | ED.GENADUL_ITS ---
Discharge Plan Disposition Patient Disposition: Home Condition: Stable Discharge Details Clinical Impression: Chest pain Primary Care Provider: Unknown,Unknown ED Provider: Partha Gomez Home Meds and New Rx's Prescriptions: Continued omega-3 fatty acids [Fish Oil Concentrate] 1,000 mg capsule 1,000 mg PO DAILY cholecalciferol (vitamin D3) 50 mcg (2,000 unit) capsule 50 mcg PO DAILY vitamin B complex [B Complex-Vitamin B12] Tablet 1 tab PO DAILY ibuprofen 200 mg capsule 200 mg PO Q6H PRN losartan 25 mg tablet 25 mg PO DAILY Patient Comments: TAKE ONE TABLET BY MOUTH EVERY MORNING Discharge Instructions Additional Instructions: Your blood work and CAT scan did not show any significant findings. I would recommend following up with your primary care provider and discussing having an outpatient stress test. If you feel more ill, have severe worsening pain or new symptoms such as persistent vomiting or difficulty breathing return to the emergency department for reevaluation. You can take a 81 mg aspirin daily. HPI General Mode of arrival: ambulatory . Date/Time Provider Initiated Documentation: 08/11/24 15:04 . Limitations to Documentation: no limitations . Information obtained by: patient . History of Present Illness 64 year old F presents to the emergency department with the chief complaint of chets pain, described as mild, Quality is described as aching, and is localized to the chest. Patient reports radiation to back. Patient started experiencing this hour(s) (6) and it has been constant. No relieving factors improve sym ptom(s), No exacerbating factors reported . Patient notes no other symptoms.. Patient did receive the following treatments prior to arrival, Aspirin Related Data Home Medications ?Medication ?Instructions ?Recorded ?Confirmed ibuprofen 200 mg capsule 200 mg PO Q6H PRN 05/30/20 08/11/24 cholecalciferol (vitamin D3) 50 50 mcg PO DAILY 12/27/20 08/11/24 mcg (2,000 unit) capsule omega-3 fatty acids 1,000 mg 1,000 mg PO DAILY 12/27/20 08/11/24 capsule (Fish Oil Concentrate) vitamin B complex (B 1 tab PO DAILY 12/27/20 08/11/24 Complex-Vitamin B12 tablet) losartan 25 mg tablet 25 mg PO DAILY 08/11/24 08/11/24 Allergies Allergy/AdvReac Type Severity Reaction Status Date / Time No Known Allergies Allergy Verified 08/11/24 15:17 General Stated Complaint: Chest Pain VALORIE: 3 Review of Systems All systems reviewed & are unremarkable except as noted in HPI and below Constitutional Constitutional: Denies chills, Denies fever(s) and Denies weakness Cardiovascular Cardiovascular: Reports chest pain and Denies dyspnea Respiratory Respiratory: Denies cough and Denies dyspnea Gastrointestinal Gastrointestinal: Denies abdominal pain, Denies nausea and Denies vomiting Genitourinary Genitourinary: Denies dysuria Neurologic Neurologic: Denies weakness Exam Const General: no acute distress Orientation: alert [facility] Head: normal to inspection Ears: external ears normal General nose exam: external nose normal Mouth: moist mucous membranes Eyes General: appearance normal, both eyes and all related structures Neck Neck: normal visual inspection Resp Effort & Inspection: normal respiratory effort and able to speak in complete sentences Auscultation: clear to auscultation bilaterally Cardio Jugular venous pressure: no JVD Rate: regular rate Heart Sounds: no murmurs GI Palpation: soft and nontender Skin General skin exam: no rashes or lesions noted Neuro General: patient alert and patient oriented x3 Extrem General: normal to inspection Psych Mental Status: mental status grossly normal Course Vital Signs Vital signs: Vital Signs Temperature 36.9 C 08/11/24 15:13 Pulse 83 08/11/24 15:13 Respiratory Rate 20 08/11/24 15:13 Blood Pressure 207/85 H 08/11/24 15:13 Pulse Oximetry 99 08/11/24 15:13 Temperature 36.9 C 08/11/24 15:13 Pulse 83 08/11/24 15:13 Respiratory Rate 20 08/11/24 15:13 Respiratory Effort Normal 08/11/24 15:16 Blood Pressure 207/85 H 08/11/24 15:13 Blood Pressure Position Sitting 08/11/24 15:13 Pulse Oximetry 99 08/11/24 15:13 Oxygen Delivery Method Room Air 08/11/24 15:13 Oxygen Flow Rate 0 08/11/24 15:13 Medical Decision Making 64-year-old female with no prior cardiac history, has a history of hypertension, comes in with a 2 out of 10 anterior chest aching that intermittently radiates to her back. She denies any diaphoresis, vomiting, increased pain with exertion. She is well-appearing on exam, she is hypertensive on arrival otherwise stable vital signs. She is clear lung sounds, no JVD, no abdominal tenderness, no leg swelling or calf tenderness. Given her complaints of the pain rating to the back we will proceed with CBC, CMP, troponins and also CTA of the chest abdomen pelvis to exclude dissection. She has no tachycardia, pleuritic chest pain or evidence of DVT on exam so doubt PE. Blood pressure much better at 160 systolic, she feels much better, delta troponin is negative and CTA shows no significant emergent findings. She has mild atherosclerotic changes of the aorta. Given reassuring workup feel she is stable for discharge and follow-up with her PCP, return precautions given. Differential Diagnosis Differential Diagnosis: NSTEMI, dissection, chest wall pain. Quality:SDOH Health Related Social Needs: No Data to Display PFSH All Active Problems (Updated 08/11/24 @ 17:38 by Partha Gomez MD) Chest pain (Acute) Injury of knee (Acute) Lax MCL (Acute) Injury of groin (Acute) Gastritis (Acute) Esophageal reflux (Chronic) Esophagitis determined by biopsy (Acute) Diarrhea (Acute) Early satiety (Acute) Blood glucose elevated (Acute) Risk factors for obstructive sleep apnea (Acute) Abdominal bloating (Acute) Medical History Abdominal bloating Depression Headache Insomnia Melasma Tubular adenoma 2013 Surgical History History of colonoscopy (~12/2020) History of esophagogastroduodenoscopy (EGD) (~12/2020) Social History Smoking/Tobacco Use Status: Never Smoking risk assessment performed?: Yes Alcohol Intake: never Substance use type: does not use Current gender identity: female Do you feel safe at home: Yes Do you feel safe in your relationship?: Yes
[2024-08-11 15:36] LABS: Abs Immature Grans 0.03 10^3/uL (0.0-0.06); Absolute Basophil Count 0.03 10^3/uL (0.0-0.2); Absolute Eosinophil Count 0.14 10^3/uL (0.0-0.7); Absolute Lymphocyte Count 4.27 10^3/uL (1.2-3.4); Absolute Monocyte Count 0.56 10^3/uL (0.1-0.8); Absolute Neutrophil Count 3.66 10^3/uL (1.2-6.7); Basophils % 0.3 %; Eosinophils % 1.6 %; HCT 45.6 % (36.0-46.0); HGB 14.9 g/dL (11.2-15.7); Immature Grans % 0.3 %; Lymphocytes % 49.1 %; MCH 28.9 pg (27.0-33.0); MCHC 32.7 % (32.0-36.0); MCV 89 fL (80-95); MPV 9.8 fL (8.0-11.0); Monocytes % 6.4 %; Neutrophils % 42.3 %; Platelet Count 314 10^3/uL (130-400); RBC 5.15 10^6/uL (3.93-5.22); RDW 12.1 % (11.7-14.6); RDW-SD 39.4 fL; WBC 8.69 10^3/uL (4.4-10.8)
[2024-08-11 15:56] LABS: ALT 37 U/L (14-59); AST 21 U/L (15-37); Albumin 4.3 g/dL (3.4-5.0); Alkaline Phosphatase 88 U/L (46-116); Anion Gap 8.2 mmol/L (3-11); BUN 16 mg/dL (7-18); Bilirubin, Total 0.45 mg/dL (0.2-1.0); CO2 29.8 mmol/L (21.0-32.0); CREATININE 0.8 mg/dL (0.55-1.02); Calcium 9.7 mg/dL (8.5-10.1); Chloride 104 mmol/L (98-107); Estimated GFR 82.74 (mL/min/1.73m2); Glucose 127 mg/dL (74-106); Lipase 93 U/L (<78); Magnesium 2.1 mg/dL (1.8-2.4); Potassium 3.5 mmol/L (3.5-5.1); Sodium 142 mmol/L (136-145); Total Protein 8.9 g/dL (6.4-8.2); Troponin I 6 ng/L (<or=51)
[2024-08-11] MEDS: Omnipaque 350 MG/ML 100 ML BTL IJ (16:21)
[2024-08-11] MEDS: Normal Saline - Diluent 50 ML VIAL IJ (16:22)
[2024-08-11 17:08] LABS: Troponin I 7 ng/L (<or=51)
== END 2024-08-11 18:09 | disposition home or self-care (01) ==
PROVIDERS: Emergency Provider Emergency Medicine
DX: R07.9 Chest pain, unspecified (principal); R94.31 Abnormal electrocardiogram [ECG] [EKG]; I10 Essential (primary) hypertension
CPT/HCPCS: 71275; 80053; 83690; 93005; 99285; 74174; 83735; 84484; 85025; 93010; 99284; J3490

== ENCOUNTER 2024-08-25 13:44 | Outpatient (REF) | payer MEDICAID, SELFPAY ==
[2024-08-25 19:24] LABS: Abs Immature Grans 0.01 10^3/uL (0.0-0.06); Absolute Basophil Count 0.04 10^3/uL (0.0-0.2); Absolute Lymphocyte Count 2.64 10^3/uL (1.2-3.4); Absolute Monocyte Count 0.78 10^3/uL (0.1-0.8); Absolute Neutrophil Count 4.59 10^3/uL (1.2-6.7); Basophils % 0.5 %; Eosinophils % 2.4 %; HGB 13.9 g/dL (11.2-15.7); Immature Grans % 0.1 %; MCH 28.9 pg (27.0-33.0); MCHC 33.1 % (32.0-36.0); MCV 87 fL (80-95); Monocytes % 9.4 %; Neutrophils % 55.6 %; Platelet Count 301 10^3/uL (130-400); RBC 4.81 10^6/uL (3.93-5.22); RDW 12.4 % (11.7-14.6); RDW-SD 39.6 fL; WBC 8.26 10^3/uL (4.4-10.8)
[2024-08-25 19:52] LABS: COMMENT (LAB VIEW ONLY) 76.69 mg/dL; Microalb ug/mg Crea 5.9 ug/mg Cr
[2024-08-25 20:23] LABS: ALT 35 U/L (14-59); AST 24 U/L (15-37); Albumin 3.9 g/dL (3.4-5.0); Alkaline Phosphatase 83 U/L (46-116); Anion Gap 7.5 mmol/L (3-11); BUN 15 mg/dL (7-18); Bilirubin, Total 0.27 mg/dL (0.2-1.0); CO2 29.5 mmol/L (21.0-32.0); CREATININE 0.8 mg/dL (0.55-1.02); Calculated LDL 141 mg/dL (<100); Chloride 104 mmol/L (98-107); Cholesterol 268 mg/dL (<200); Estimated GFR 82.74 (mL/min/1.73m2); Folate 19.4 ng/mL (8.6-20.0); Glucose 132 mg/dL (74-106); HDL Cholesterol 82 mg/dL (40-60); Potassium 4.3 mmol/L (3.5-5.1); Sodium 141 mmol/L (136-145); Total Protein 7.6 g/dL (6.4-8.2); Triglyceride 228 mg/dL (<150); Vitamin B12 1014 pg/mL (193-986)
== END 2024-08-25 13:45 | disposition home or self-care (01) ==
LOC: NCHCN 13:44
PROVIDERS: Visit Provider Nurse Practitioner Family
DX: I10 Essential (primary) hypertension (principal); E78.5 Hyperlipidemia, unspecified; R53.83 Other fatigue; E11.9 Type 2 diabetes mellitus without complications
CPT/HCPCS: 80053; 80061; 82306; 82043; 82570; 82607; 82746; 85025

== ENCOUNTER 2024-12-16 13:40 | Outpatient (REF) | payer MEDICAID, SELFPAY ==
[2024-12-16 15:59] LABS: Abs Immature Grans 0.02 10^3/uL (0.0-0.06); Absolute Basophil Count 0.04 10^3/uL (0.0-0.2); Absolute Eosinophil Count 0.17 10^3/uL (0.0-0.7); Absolute Lymphocyte Count 2.59 10^3/uL (1.2-3.4); Absolute Monocyte Count 0.65 10^3/uL (0.1-0.8); Absolute Neutrophil Count 4.67 10^3/uL (1.2-6.7); Basophils % 0.5 %; Eosinophils % 2.1 %; HCT 40.7 % (36.0-46.0); HGB 13.2 g/dL (11.2-15.7); Immature Grans % 0.2 %; Lymphocytes % 31.8 %; MCH 28.6 pg (27.0-33.0); MCHC 32.4 % (32.0-36.0); MCV 88 fL (80-95); MPV 10.3 fL (8.0-11.0); Neutrophils % 57.4 %; Platelet Count 275 10^3/uL (130-400); RBC 4.61 10^6/uL (3.93-5.22); RDW 12.7 % (11.7-14.6); WBC 8.14 10^3/uL (4.4-10.8)
== END 2024-12-16 13:41 | disposition home or self-care (01) ==
LOC: NCHCN 13:40
PROVIDERS: Visit Provider Nurse Practitioner Family
DX: R53.83 Other fatigue (principal); E11.9 Type 2 diabetes mellitus without complications; J02.9 Acute pharyngitis, unspecified
CPT/HCPCS: 83036; 85025; 87070